=== PATIENT | male | born 1960 | race African-American/Black ===

== ENCOUNTER 2016-04-18 10:48 | Inpatient (IN) | payer OTHER ==
[2016-04-18 11:17] VITALS: BMI 21.8
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
[2016-04-18] MEDS ORDERED: IBUPROFEN 400 MG TABLET (FP) PO PRN (14:36)
[2016-04-18] MEDS ORDERED: P-EPHED 60MG/TRIPROLIDI 2.5MG TABLET PO PRN (14:36)
[2016-04-18] MEDS ORDERED: chlordiazePOXIDE HCL 25 MG CAPSULE PO PRN (14:36)
[2016-04-18] MEDS ORDERED: MAG HYDROX/AL HYDROX/SIMETH 30 ML UNIT-DOSE CUP PO PRN (14:36)
[2016-04-18] MEDS ORDERED: MAGNESIUM CITRATE 300 ML BOTTLE PO PRN (14:36)
[2016-04-18] MEDS ORDERED: diphenhydrAMINE HCL 50 MG CAPSULE PO PRN (14:36)
[2016-04-18] MEDS ORDERED: NICOTINE POLACRILEX 4 MG GUM BUC PRN (14:36)
[2016-04-18] MEDS ORDERED: LOPERAMIDE HCL 2 MG CAPSULE PO PRN (14:36)
[2016-04-18] MEDS ORDERED: MENTHOL/PHENOL 1 EACH UD MM PRN (14:36)
[2016-04-18] MEDS ORDERED: guaiFENesin/D-METHORPHAN HB 10 ML UNIT-DOSE CUPS PO PRN (14:36)
[2016-04-18] MEDS ORDERED: ACETAMINOPHEN 325 MG TABLET (FP) PO PRN (14:36)
[2016-04-18] MEDS ORDERED: hydrOXYzine PAMOATE 50 MG CAPSULE (FP) PO PRN (14:36)
[2016-04-18] MEDS ORDERED: MAGNESIUM HYDROX 2400MG/30ML ORAL SUSPENSION 30 ML CUP PO PRN (14:36)
[2016-04-18] MEDS ORDERED: chlordiazePOXIDE HCL 25 MG CAPSULE PO ONE (15:38)
[2016-04-18 17:35] LABS: URINE APPEARANCE CLEAR; URINE BILIRUBIN NEGATIVE (NEGATIVE); URINE BLOOD NEGATIVE (NEGATIVE); URINE COLOR LTYELLOW; URINE GLUCOSE (UA) NEGATIVE (NEGATIVE); URINE KETONE NEGATIVE (NEGATIVE); URINE LEUK ESTERASE NEGATIVE (NEGATIVE); URINE NITRITE NEGATIVE (NEGATIVE); URINE PROTEIN NEGATIVE (NEGATIVE); URINE UROBILINOGEN NEGATIVE E.U./dl (0.2-1.0)
[2016-04-18] MEDS: chlordiazePOXIDE HCL 25 MG CAPSULE PO SCH ×2 (18:49→22:29)
[2016-04-18] MEDS: TAMSULOSIN HCL 0.4 MG CAP.ER.24H (FP) PO SCH (22:30)
[2016-04-18] MEDS: THIAMINE HCL 100 MG TABLET (FP) PO SCH (22:31)
[2016-04-19] MEDS: chlordiazePOXIDE HCL 25 MG CAPSULE PO SCH ×4 (06:15→22:36)
[2016-04-19] MEDS ORDERED: TAMSULOSIN HCL 0.4 MG CAP.ER.24H (FP) PO SCH (10:00)
[2016-04-19] MEDS: PRENATAL VITAMINS W/ FOLIC ACID TABLET (FP) PO SCH (10:15)
[2016-04-19] MEDS: NICOTINE 21 MG/24 HOURS TOPICAL PATCH TD SCH (10:15)
[2016-04-19 10:17] LABS: MCH 31.6 pg (25.7-33.7); MCHC 33.5 g/dl (32.0-35.9); MEAN CELL VOLUME 94.4 fl (80-96); MEAN PLT VOLUME 8.5 fl (7.5-11.1); PLATELET COUNT 305 K/MM3 (134-434); RDW 13.4 % (11.9-15.9); WHITE BLOOD COUNT 4.5 K/mm3 (4.0-10.0)
[2016-04-19 10:45] LABS: ALBUMIN 3.9 g/dl (3.4-5.0); ALK PHOS 69 U/L (45-117); ANION GAP 9 (8-16); BILIRUBIN,TOTAL 0.5 mg/dL (0.2-1.0); CALCIUM 9.5 mg/dL (8.5-10.1); CO2 27 mmol/L (21-32); CREATININE 1.1 mg/dL (0.7-1.3); GLUCOSE,RANDOM 111 mg/dL (74-106); SGOT/AST 25 U/L (15-37); SGPT/ALT 34 U/L (12-78); TOT PROT 7.3 g/dl (6.4-8.2)
--- NOTE | 2016-04-19 11:32 | PN ---
S CIWA - CIWA Score Nausea/Vomitin-No Nausea/No Vomiting Muscle Tremors: 4-Moderate,w/Arms Extend Anxiety: 4-Mod. Anxious/Guarded Agitation: 3 Paroxysmal Sweats: 3 Orientation: 0-Oriented Tacttile Disturbances: 0-None Auditory Disturbances: 0-None Visual Disturbances: 0-None Headache: 0-None Present CIWA-Ar Total Score: 14 BHS Progress Note (SOAP) Subjective: ANXIETY,TREMORS,SWEATING,INTERRUPTED SLEEP,RESTLESS. Objective: 04/19/16 11:31 Vital Signs - 8 hr 04/19/16 06:27 Temperature 98.4 F Pulse Rate 101 H Respiratory 18 Rate Blood Pressure 114/81 Laboratory Tests 04/18/16 04/19/16 04/19/16 16:45 06:00 06:00 WBC 4.5 D RBC 3.90 L Hgb 12.3 Hct 36.8 MCV 94.4 MCHC 33.5 RDW 13.4 Plt Count 305 D MPV 8.5 Sodium 135 L Potassium 4.0 Chloride 99 Carbon Dioxide 27 Anion Gap 9 BUN 16 D Creatinine 1.1 Creat Clearance w eGFR > 60 Random Glucose 111 H Calcium 9.5 Total Bilirubin 0.5 AST 25 ALT 34 D Alkaline Phosphatase 69 Total Protein 7.3 Albumin 3.9 Urine Color Ltyellow Urine Appearance Clear Urine pH 6.0 Ur Specific [place] 1.008 Urine Protein Negative Urine Glucose (UA) Negative Urine Ketones Negative Urine Blood Negative Urine Nitrite Negative Urine Bilirubin Negative Urine Urobilinogen Negative Ur Leukocyte Esterase Negative LABS NOTED Assessment: 04/19/16 11:31 WITHDRAWAL SX. Plan: CONTINUE DETOX
--- NOTE | 2016-04-19 15:34 | CONSULT ---
[facility] Psychiatric Consult - Data Date of interview: 04/19/16 Admission source: [facility] Identifying data: This is 55 years old male with [id number] hospitalization history, history of Bipolar disorder intoxicated with: Alcohol, Cocaine and Nicotine Substance Abuse History: Smoking history: Current every day smoker. Have you smoked in the past 12 months: Yes. Aproximately how many cigarettes per day: 20. Hx Chewing Tobacco Use: No. Initiated information on smoking cessation: Yes. 'Breaking Loose' booklet given: 04/18/16. - Substance & Tx. History. Hx Alcohol Use: Yes. Hx Substance Use: Yes. Substance Use Type: Alcohol, Cocaine. Hx Substance Use Treatment: Yes. - Substances Abused. Alcohol. Route: Oral. Frequency: Daily. Amount used: beers- 2- 6pk daily vodka- 1pt. Age of first use: 16. Date of Last Use: 04/18/16. Cocaine. Route: Smoking. Frequency: Daily. Amount used: $200. Age of first use: 33. Date of Last Use: 04/18/16 Medical History: LBP, BPH, Eczema Psychiatric History: Patient reports Bipolar Disorder hiatory, reports no medicatopns taking prior to admission, reports most recent psychiatric admission at [facility] for [facility] on 2014. Regusing pharmacological intervention Physical/Sexual Abuse/Trauma History: Denies Additional Comment: Detox Unit Care Management Mental Status Exam - Mental Status Exam Alert and Oriented to: Person Cognitive Function: Fair Patient Appearance: Unkempt Mood: Sad Affect: Flat Patient Behavior: Sedated Speech Pattern: Delayed Voice Loudness: Mildly Soft/Quiet Thought Process: Circumstantial Thought Disorder: Being Controlled Hallucinations: Denies Suicidal Ideation: Denies Homicidal Ideation: Denies Insight/Judgement: Fair Sleep: Difficulty falling asleep Appetite: Fair Muscle strength/Tone: Mild Hypotonicity Gait/Station: Shuffling Additional Comments: Detox Unit Care Management Psychiatric Findings - Problem List ([place] 1, 2,3) (1) Alcohol dependence with uncomplicated withdrawal Current Visit: Yes Status: Chronic (2) Cocaine dependence Current Visit: Yes Status: Chronic Qualifiers: Substance use status: uncomplicated Qualified Code(s): F14.20 - Cocaine dependence, uncomplicated (3) Nicotine dependence Current Visit: Yes Status: Chronic Qualifiers: Nicotine product type: cigarettes Substance use status: uncomplicated Qualified Code(s): F17.210 - Nicotine dependence, cigarettes, uncomplicated (4) Alcohol dependence Current Visit: No Status: Acute Qualifiers: Substance use status: uncomplicated Qualified Code(s): F10.20 - Alcohol dependence, uncomplicated (5) Bipolar 1 disorder, depressed Current Visit: No Status: Chronic - Initial Treatment Plan Initial Treatment Plan: Detox Unit Care Management
[2016-04-19] MEDS: TAMSULOSIN HCL 0.4 MG CAP.ER.24H (FP) PO SCH (22:35)
[2016-04-19] MEDS: THIAMINE HCL 100 MG TABLET (FP) PO SCH (22:35)
[2016-04-20] MEDS: chlordiazePOXIDE HCL 25 MG CAPSULE PO SCH ×2 (05:50→10:12)
[2016-04-20] MEDS: NICOTINE 21 MG/24 HOURS TOPICAL PATCH TD SCH (10:12)
[2016-04-20] MEDS: PRENATAL VITAMINS W/ FOLIC ACID TABLET (FP) PO SCH (10:12)
--- NOTE | 2016-04-20 12:58 | PN ---
[facility] CIWA - CIWA Score Nausea/Vomitin-No Nausea/No Vomiting Muscle Tremors: 3 Anxiety: 3 Agitation: 3 Paroxysmal Sweats: 3 Orientation: 0-Oriented Tacttile Disturbances: 0-None Auditory Disturbances: 0-None Visual Disturbances: 0-None Headache: 0-None Present CIWA-Ar Total Score: 12 S Progress Note (SOAP) Subjective: SWEATING,INTERRUPTED SLEEP,RESTLESS,TREMORS,ANXIETY Objective: 04/20/16 12:58 Vital Signs - 8 hr 04/20/16 06:11 Temperature 97.2 F L Pulse Rate 109 H Respiratory 18 Rate Blood Pressure 109/81 Laboratory Tests 04/18/16 04/19/16 04/19/16 16:45 06:00 06:00 WBC 4.5 D RBC 3.90 L Hgb 12.3 Hct 36.8 MCV 94.4 MCHC 33.5 RDW 13.4 Plt Count 305 D MPV 8.5 Sodium 135 L Potassium 4.0 Chloride 99 Carbon Dioxide 27 Anion Gap 9 BUN 16 D Creatinine 1.1 Creat Clearance w eGFR > 60 Random Glucose 111 H Calcium 9.5 Total Bilirubin 0.5 AST 25 ALT 34 D Alkaline Phosphatase 69 Total Protein 7.3 Albumin 3.9 Urine Color Ltyellow Urine Appearance Clear Urine pH 6.0 Ur Specific [place] 1.008 Urine Protein Negative Urine Glucose (UA) Negative Urine Ketones Negative Urine Blood Negative Urine Nitrite Negative Urine Bilirubin Negative Urine Urobilinogen Negative Ur Leukocyte Esterase Negative RPR Titer 04/19/16 06:00 WBC RBC Hgb Hct MCV MCHC RDW Plt Count MPV Sodium Potassium Chloride Carbon Dioxide Anion Gap BUN Creatinine Creat Clearance w eGFR Random Glucose Calcium Total Bilirubin AST ALT Alkaline Phosphatase Total Protein Albumin Urine Color Urine Appearance Urine pH Ur Specific [place] Urine Protein Urine Glucose (UA) Urine Ketones Urine Blood Urine Nitrite Urine Bilirubin Urine Urobilinogen Ur Leukocyte Esterase RPR Titer Nonreactive LABS NOTED Assessment: 04/20/16 12:59 WITHDRAWAL SX. Plan: CONTINUE DETOX
[2016-04-20] MEDS: chlordiazePOXIDE 5 MG CAPSULE PO SCH ×2 (17:20→22:32)
[2016-04-20] MEDS: TAMSULOSIN HCL 0.4 MG CAP.ER.24H (FP) PO SCH (22:32)
[2016-04-20] MEDS: THIAMINE HCL 100 MG TABLET (FP) PO SCH (22:32)
[2016-04-21] MEDS: chlordiazePOXIDE 5 MG CAPSULE PO SCH ×2 (05:49→10:27)
[2016-04-21] MEDS: PRENATAL VITAMINS W/ FOLIC ACID TABLET (FP) PO SCH (10:27)
[2016-04-21] MEDS: NICOTINE 21 MG/24 HOURS TOPICAL PATCH TD SCH (10:27)
[2016-04-21 10:49] VITALS: BP 100/74; PULSE 118; TEMP 97.9
--- NOTE | 2016-04-21 11:19 | DS ---
[facility] Detox Discharge Summary Admission Date: 04/18/16 Discharge Date: 04/21/16 - History Present History: Alcohol Dependence, Cocaine Dependence Pertinent Past History: BPH - Physical Exam Results Vital Signs: Vital Signs Temperature 97.9 F 04/21/16 10:47 Pulse Rate 118 H 04/21/16 10:47 Respiratory Rate 20 04/21/16 10:47 Blood Pressure 100/74 04/21/16 10:47 O2 Sat by Pulse Oximetry (%) Pertinent Admission Physical Exam Findings: withdrawal symptoms Vital Signs Laboratory Last Values WBC 4.5 K/mm3 (4.0-10.0) D 04/19/16 06:00 RBC 3.90 M/mm3 (4.00-5.60) L 04/19/16 06:00 Hgb 12.3 GM/dL (11.7-16.9) 04/19/16 06:00 Hct 36.8 % (35.4-49) 04/19/16 06:00 MCV 94.4 fl (80-96) 04/19/16 06:00 MCHC 33.5 g/dl (32.0-35.9) 04/19/16 06:00 RDW 13.4 % (11.9-15.9) 04/19/16 06:00 Plt Count 305 K/MM3 (134-434) D 04/19/16 06:00 MPV 8.5 fl (7.5-11.1) 04/19/16 06:00 Sodium 135 mmol/L (136-145) L 04/19/16 06:00 Potassium 4.0 mmol/L (3.5-5.1) 04/19/16 06:00 Chloride 99 mmol/L (98-107) 04/19/16 06:00 Carbon Dioxide 27 mmol/L (21-32) 04/19/16 06:00 Anion Gap 9 (8-16) 04/19/16 06:00 BUN 16 mg/dL (7-18) D 04/19/16 06:00 Creatinine 1.1 mg/dL (0.7-1.3) 04/19/16 06:00 Creat Clearance w eGFR > 60 (>60) 04/19/16 06:00 Random Glucose 111 mg/dL (74-106) H 04/19/16 06:00 Calcium 9.5 mg/dL (8.5-10.1) 04/19/16 06:00 Total Bilirubin 0.5 mg/dL (0.2-1.0) 04/19/16 06:00 AST 25 U/L (15-37) 04/19/16 06:00 ALT 34 U/L (12-78) D 04/19/16 06:00 Alkaline Phosphatase 69 U/L (45-117) 04/19/16 06:00 Total Protein 7.3 g/dl (6.4-8.2) 04/19/16 06:00 Albumin 3.9 g/dl (3.4-5.0) 04/19/16 06:00 Urine Color Ltyellow 04/18/16 16:45 Urine Appearance Clear 04/18/16 16:45 Urine pH 6.0 (5.0-8.0) 04/18/16 16:45 Ur Specific [place] 1.008 (1.001-1.035) 04/18/16 16:45 Urine Protein Negative (NEGATIVE) 04/18/16 16:45 Urine Glucose (UA) Negative (NEGATIVE) 04/18/16 16:45 Urine Ketones Negative (NEGATIVE) 04/18/16 16:45 Urine Blood Negative (NEGATIVE) 04/18/16 16:45 Urine Nitrite Negative (NEGATIVE) 04/18/16 16:45 Urine Bilirubin Negative (NEGATIVE) 04/18/16 16:45 Urine Urobilinogen Negative E.U./dl (0.2-1.0) 04/18/16 16:45 Ur Leukocyte Esterase Negative (NEGATIVE) 04/18/16 16:45 RPR Titer Nonreactive (NONREACTIVE) 04/19/16 06:00 labs noted - Medication Discharge Medications: Ambulatory Orders Tamsulosin HCl [Flomax] 0.4 mg PO DAILY 04/18/16 - Diagnosis (1) Alcohol dependence with uncomplicated withdrawal Status: Chronic (2) Cocaine dependence Status: Chronic Qualifiers: Substance use status: uncomplicated Qualified Code(s): F14.20 - Cocaine dependence, uncomplicated (3) Nicotine dependence Status: Chronic Qualifiers: Nicotine product type: cigarettes Substance use status: uncomplicated Qualified Code(s): F17.210 - Nicotine dependence, cigarettes, uncomplicated (4) Benign prostate hyperplasia Status: Chronic Qualifiers: Prostatic enlargement morphology: non-nodular Lower urinary tract symptom presence: symptoms present Qualified Code(s): N40.1 - Enlarged prostate with lower urinary tract symptoms (5) Bipolar 1 disorder, depressed Status: Chronic - AMA Did Patient Leave Against Medical Advice: Yes
--- NOTE | 2016-04-21 12:26 | PN ---
[facility] Progress Note Note: Psychiatry Attending's note: Follow up consult requested by medical attending,Dr Bardales. Case presented by referring attending.Chart reviewed.Previously seen by Dr Groves. Patient not available for interview.Physician Office Clin Asst is informed that the patient had requested his discharge. Mr Phan,as per records,left the program against medical advice.Patient waived psychiatric examination.
[2016-04-21] MEDS ORDERED: chlordiazePOXIDE HCL 10 MG CAPSULE PO SCH (17:00)
== END 2016-04-21 11:04 | disposition left against medical advice (07) | DRG 770 ==
LOC: YASAS 10:48 → Y3N 15:31
PROVIDERS: ADMIT Internal Medicine; ATTEND Internal Medicine
PROC: HZ2ZZZZ Detoxification Services for Substance Abuse Treatment (ICD-10-PCS; principal; 2016-04-18)
DX: F10.230 Alcohol dependence with withdrawal, uncomplicated (principal); F14.20 Cocaine dependence, uncomplicated; F17.210 Nicotine dependence, cigarettes, uncomplicated; F31.9 Bipolar disorder, unspecified; N40.1 Benign prostatic hyperplasia with lower urinary tract symptoms; M54.5 Low back pain; L30.9 Dermatitis, unspecified; R00.0 Tachycardia, unspecified
CPT/HCPCS: 36415; 80053; 81003; 85027; 86593; 93005; 93010

== ENCOUNTER 2017-06-10 10:31 | Inpatient (IN) | payer OTHER ==
[2017-06-10 11:49] VITALS: BMI 23.4
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
[2017-06-10] MEDS ORDERED: IBUPROFEN 400 MG TABLET (FP) PO PRN (13:00)
[2017-06-10] MEDS ORDERED: ACETAMINOPHEN 325 MG TABLET (FP) PO PRN (13:00)
[2017-06-10] MEDS ORDERED: guaiFENesin/D-METHORPHAN HB 10 ML UNIT-DOSE CUPS PO PRN (13:00)
[2017-06-10] MEDS ORDERED: LOPERAMIDE HCL 2 MG CAPSULE PO PRN (13:00)
[2017-06-10] MEDS ORDERED: MAGNESIUM HYDROX 2400MG/30ML ORAL SUSPENSION 30 ML CUP PO PRN (13:00)
[2017-06-10] MEDS ORDERED: NICOTINE 14 MG/24 HOURS TOPICAL PATCH TD SCH (13:00)
[2017-06-10] MEDS ORDERED: MAG HYDROX/AL HYDROX/SIMETH 30 ML UNIT-DOSE CUP PO PRN (13:00)
[2017-06-10] MEDS ORDERED: diazePAM 5 MG TABLET PO PRN (13:00)
[2017-06-10] MEDS ORDERED: hydrOXYzine PAMOATE 50 MG CAPSULE (FP) PO PRN (13:00)
[2017-06-10] MEDS ORDERED: MENTHOL/PHENOL 1 EACH UD MM PRN (13:00)
[2017-06-10] MEDS ORDERED: MAGNESIUM CITRATE 300 ML BOTTLE PO PRN (13:00)
[2017-06-10] MEDS ORDERED: P-EPHED 60MG/TRIPROLIDI 2.5MG TABLET PO PRN (13:00)
[2017-06-10] MEDS ORDERED: diazePAM 5 MG TABLET PO ONE (14:15)
[2017-06-10] MEDS: NICOTINE 14 MG/24 HOURS TOPICAL PATCH TD SCH (15:24)
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
[2017-06-10 18:39] LABS: URINE APPEARANCE TURBID; URINE BILIRUBIN NEGATIVE (NEGATIVE); URINE BLOOD NEGATIVE (NEGATIVE); URINE COLOR YELLOW; URINE GLUCOSE (UA) NEGATIVE (NEGATIVE); URINE KETONE NEGATIVE (NEGATIVE); URINE LEUK ESTERASE NEGATIVE (NEGATIVE); URINE NITRITE NEGATIVE (NEGATIVE); URINE PROTEIN NEGATIVE (NEGATIVE); URINE UROBILINOGEN 4.0 E.U/dl mg/dL (0.2-1.0)
[2017-06-10] MEDS: THIAMINE HCL 100 MG TABLET (FP) PO SCH (22:16)
[2017-06-10] MEDS: diazePAM 5 MG TABLET PO SCH (22:16)
[2017-06-11] MEDS: diazePAM 5 MG TABLET PO SCH ×3 (05:59→22:25)
[2017-06-11 09:46] LABS: HEMATOCRIT 38.9 % (35.4-49); HEMOGLOBIN 12.7 GM/dL (11.7-16.9); MCH 30.6 pg (25.7-33.7); MCHC 32.8 g/dl (32.0-35.9); MEAN CELL VOLUME 93.5 fl (80-96); PLATELET COUNT 412 K/MM3 (134-434); RBC 4.16 M/mm3 (4.00-5.60); WHITE BLOOD COUNT 2.9 K/mm3 (4.0-10.0)
[2017-06-11 09:55] LABS: CHLORIDE 103 mmol/L (98-107); POTASSIUM 3.6 mmol/L (3.5-5.1); SODIUM 139 mmol/L (136-145)
[2017-06-11] MEDS: PRENATAL VITAMINS W/ FOLIC ACID TABLET (FP) PO SCH (10:12)
[2017-06-11] MEDS: TAMSULOSIN HCL 0.4 MG CAP.ER.24H (FP) PO SCH (10:12)
[2017-06-11] MEDS: NICOTINE 14 MG/24 HOURS TOPICAL PATCH TD SCH (10:12)
[2017-06-11 10:21] LABS: ALBUMIN 3.7 g/dl (3.4-5.0); ALK PHOS 57 U/L (45-117); ANION GAP 9 (8-16); BILIRUBIN,TOTAL 0.8 mg/dL (0.2-1.0); BLOOD UREA NITROGEN 13 mg/dL (7-18); CO2 27 mmol/L (21-32); GLUCOSE,RANDOM 106 mg/dL (74-106); SGOT/AST 9 U/L (15-37); SGPT/ALT 16 U/L (12-78); TOT PROT 7.4 g/dl (6.4-8.2)
--- NOTE | 2017-06-11 10:55 | PN ---
S CIWA - CIWA Score Nausea/Vomitin Muscle Tremors: 3 Anxiety: 3 Agitation: 2 Paroxysmal Sweats: 1-Minimal Palms Moist Orientation: 0-Oriented Tacttile Disturbances: 1-Very Mild Itch/Numbness Auditory Disturbances: 1-Very Mild Visual Disturbances: 0-None Headache: 2-Mild CIWA-Ar Total Score: 16 BHS Progress Note (SOAP) Subjective: ALERT,IRRITABLE,ANXIOUS,INTERRUPTED SLEEP,TREMOR Objective: 06/11/17 10:52 Vital Signs Temperature 98.1 F 06/11/17 10:00 Pulse Rate 106 H 06/11/17 10:00 Respiratory Rate 20 06/11/17 10:00 Blood Pressure 101/67 06/11/17 10:00 O2 Sat by Pulse Oximetry (%) EKG NSR,NONSPECIFIC T NO CHEST PAIN,NO SOB,NO DIZZINESS Laboratory Last Values WBC 2.9 K/mm3 (4.0-10.0) L D 06/11/17 05:45 RBC 4.16 M/mm3 (4.00-5.60) 06/11/17 05:45 Hgb 12.7 GM/dL (11.7-16.9) 06/11/17 05:45 Hct 38.9 % (35.4-49) 06/11/17 05:45 MCV 93.5 fl (80-96) 06/11/17 05:45 MCH 30.6 pg (25.7-33.7) 06/11/17 05:45 MCHC 32.8 g/dl (32.0-35.9) 06/11/17 05:45 RDW 13.0 % (11.9-15.9) 06/11/17 05:45 Plt Count 412 K/MM3 (134-434) D 06/11/17 05:45 MPV 8.0 fl (7.5-11.1) 06/11/17 05:45 Sodium 139 mmol/L (136-145) 06/11/17 05:45 Potassium 3.6 mmol/L (3.5-5.1) 06/11/17 05:45 Chloride 103 mmol/L (98-107) 06/11/17 05:45 Carbon Dioxide 27 mmol/L (21-32) 06/11/17 05:45 Anion Gap 9 (8-16) 06/11/17 05:45 BUN 13 mg/dL (7-18) 06/11/17 05:45 Creatinine 1.0 mg/dL (0.7-1.3) 06/11/17 05:45 Creat Clearance w eGFR > 60 (>60) 06/11/17 05:45 Random Glucose 106 mg/dL (74-106) 06/11/17 05:45 Calcium 9.0 mg/dL (8.5-10.1) 06/11/17 05:45 Total Bilirubin 0.8 mg/dL (0.2-1.0) D 06/11/17 05:45 AST 9 U/L (15-37) L D 06/11/17 05:45 ALT 16 U/L (12-78) D 06/11/17 05:45 Alkaline Phosphatase 57 U/L (45-117) 06/11/17 05:45 Total Protein 7.4 g/dl (6.4-8.2) 06/11/17 05:45 Albumin 3.7 g/dl (3.4-5.0) 06/11/17 05:45 Urine Color Yellow 06/10/17 18:00 Urine Appearance Turbid 06/10/17 18:00 Urine pH 5.0 (5.0-8.0) 06/10/17 18:00 Ur Specific [place] 1.032 (1.001-1.035) 06/10/17 18:00 Urine Protein Negative (NEGATIVE) 06/10/17 18:00 Urine Glucose (UA) Negative (NEGATIVE) 06/10/17 18:00 Urine Ketones Negative (NEGATIVE) 06/10/17 18:00 Urine Blood Negative (NEGATIVE) 06/10/17 18:00 Urine Nitrite Negative (NEGATIVE) 06/10/17 18:00 Urine Bilirubin Negative (NEGATIVE) 06/10/17 18:00 Urine Urobilinogen 4.0 e.u/dl mg/dL (0.2-1.0) 06/10/17 18:00 Ur Leukocyte Esterase Negative (NEGATIVE) 06/10/17 18:00 Assessment: 06/11/17 10:54 WITHDRAWAL SYMPTOM Plan: CONTINUE DETOX
--- NOTE | 2017-06-11 13:35 | EKG ---
Test Reason : Blood Pressure : / mmHG Vent. Rate : 085 BPM Atrial Rate : 085 BPM P-R Int : 166 ms QRS Dur : 078 ms QT Int : 360 ms P-R-T Axes : 070 014 -03 degrees QTc Int : 428 ms NORMAL SINUS RHYTHM NONSPECIFIC T WAVE ABNORMALITY ABNORMAL ECG NO PREVIOUS ECGS AVAILABLE Confirmed by MD Sarthak, Carlyle ([id number]) on 06/11/2017 1:35:09 PM Referred By: Confirmed By:Carlyle De León MD
[2017-06-11] MEDS: THIAMINE HCL 100 MG TABLET (FP) PO SCH (22:25)
[2017-06-12] MEDS ORDERED: diazePAM 5 MG TABLET PO SCH (10:00)
[2017-06-12] MEDS: PRENATAL VITAMINS W/ FOLIC ACID TABLET (FP) PO SCH (10:30)
[2017-06-12] MEDS: TAMSULOSIN HCL 0.4 MG CAP.ER.24H (FP) PO SCH (10:30)
[2017-06-12] MEDS: NICOTINE 14 MG/24 HOURS TOPICAL PATCH TD SCH (10:31)
--- NOTE | 2017-06-12 11:41 | PN ---
BHS Progress Note (SOAP) Subjective: ALERT,INTERRUPTED SLEEP Objective: 06/12/17 11:39 Vital Signs Temperature 98.1 F 06/12/17 09:55 Pulse Rate 106 H 06/12/17 09:55 Respiratory Rate 20 06/12/17 09:55 Blood Pressure 113/78 06/12/17 09:55 O2 Sat by Pulse Oximetry (%) Assessment: 06/12/17 11:40 LESS WITHDRAWAL SYMPTOM Plan: DISCHARGE IN AM AT 07.00
[2017-06-12 21:51] VITALS: BP 107/75; PULSE 109; TEMP 98.8
--- NOTE | 2017-06-12 21:53 | DS ---
[facility] Detox Discharge Summary Admission Date: 06/10/17 Discharge Date: 06/12/17 - History Present History: Alcohol Dependence, Cocaine Dependence Pertinent Past History: Bipolar d/o - Physical Exam Results Vital Signs: Vital Signs Temperature 98 F 06/12/17 18:57 Pulse Rate 100 H 06/12/17 18:57 Respiratory Rate 19 06/12/17 18:57 Blood Pressure 104/69 06/12/17 18:57 O2 Sat by Pulse Oximetry (%) Pertinent Admission Physical Exam Findings: Vital Signs Temperature 98.8 F 06/12/17 21:51 Pulse Rate 109 H 06/12/17 21:51 Respiratory Rate 20 06/12/17 21:51 Blood Pressure 107/75 06/12/17 21:51 O2 Sat by Pulse Oximetry (%) Laboratory Last Values WBC 2.9 K/mm3 (4.0-10.0) L D 06/11/17 05:45 RBC 4.16 M/mm3 (4.00-5.60) 06/11/17 05:45 Hgb 12.7 GM/dL (11.7-16.9) 06/11/17 05:45 Hct 38.9 % (35.4-49) 06/11/17 05:45 MCV 93.5 fl (80-96) 06/11/17 05:45 MCH 30.6 pg (25.7-33.7) 06/11/17 05:45 MCHC 32.8 g/dl (32.0-35.9) 06/11/17 05:45 RDW 13.0 % (11.9-15.9) 06/11/17 05:45 Plt Count 412 K/MM3 (134-434) D 06/11/17 05:45 MPV 8.0 fl (7.5-11.1) 06/11/17 05:45 Sodium 139 mmol/L (136-145) 06/11/17 05:45 Potassium 3.6 mmol/L (3.5-5.1) 06/11/17 05:45 Chloride 103 mmol/L (98-107) 06/11/17 05:45 Carbon Dioxide 27 mmol/L (21-32) 06/11/17 05:45 Anion Gap 9 (8-16) 06/11/17 05:45 BUN 13 mg/dL (7-18) 06/11/17 05:45 Creatinine 1.0 mg/dL (0.7-1.3) 06/11/17 05:45 Creat Clearance w eGFR > 60 (>60) 06/11/17 05:45 Random Glucose 106 mg/dL (74-106) 06/11/17 05:45 Calcium 9.0 mg/dL (8.5-10.1) 06/11/17 05:45 Total Bilirubin 0.8 mg/dL (0.2-1.0) D 06/11/17 05:45 AST 9 U/L (15-37) L D 06/11/17 05:45 ALT 16 U/L (12-78) D 06/11/17 05:45 Alkaline Phosphatase 57 U/L (45-117) 06/11/17 05:45 Total Protein 7.4 g/dl (6.4-8.2) 06/11/17 05:45 Albumin 3.7 g/dl (3.4-5.0) 06/11/17 05:45 Urine Color Yellow 06/10/17 18:00 Urine Appearance Turbid 06/10/17 18:00 Urine pH 5.0 (5.0-8.0) 06/10/17 18:00 Ur Specific [place] 1.032 (1.001-1.035) 06/10/17 18:00 Urine Protein Negative (NEGATIVE) 06/10/17 18:00 Urine Glucose (UA) Negative (NEGATIVE) 06/10/17 18:00 Urine Ketones Negative (NEGATIVE) 06/10/17 18:00 Urine Blood Negative (NEGATIVE) 06/10/17 18:00 Urine Nitrite Negative (NEGATIVE) 06/10/17 18:00 Urine Bilirubin Negative (NEGATIVE) 06/10/17 18:00 Urine Urobilinogen 4.0 e.u/dl mg/dL (0.2-1.0) 06/10/17 18:00 Ur Leukocyte Esterase Negative (NEGATIVE) 06/10/17 18:00 RPR Titer Nonreactive (NONREACTIVE) 06/11/17 05:45 - Medication Discharge Medications: Ambulatory Orders Tamsulosin HCl [Flomax -] 0.4 mg PO DAILY #30 cap.er.24h 06/12/17 hydrOXYzine PAMOATE [Vistaril -] 50 mg PO HS #30 capsule 06/12/17 - Diagnosis (1) Alcohol dependence with uncomplicated withdrawal Current Visit: Yes Status: Acute (2) Cocaine dependence Current Visit: Yes Status: Chronic Qualifiers: Substance use status: uncomplicated Qualified Code(s): F14.20 - Cocaine dependence, uncomplicated (3) Nicotine dependence Current Visit: Yes Status: Acute Qualifiers: Nicotine product type: cigarettes Substance use status: uncomplicated Qualified Code(s): F17.210 - Nicotine dependence, cigarettes, uncomplicated (4) Benign prostate hyperplasia Current Visit: Yes Status: Chronic Qualifiers: Lower urinary tract symptom presence: symptoms present (5) Bipolar disorder Current Visit: Yes Status: Chronic - AMA Did Patient Leave Against Medical Advice: Yes (Advised on benefits and risks )
[2017-06-14] MEDS ORDERED: diazePAM 5 MG TABLET PO SCH (10:00)
== END 2017-06-12 22:10 | disposition left against medical advice (07) | DRG 770 ==
LOC: YASAS 10:31 → Y6N 13:14
PROVIDERS: ADMIT Internal Medicine; ATTEND Internal Medicine
PROC: HZ2ZZZZ Detoxification Services for Substance Abuse Treatment (ICD-10-PCS; principal; 2017-06-08)
DX: F10.230 Alcohol dependence with withdrawal, uncomplicated (principal); F14.20 Cocaine dependence, uncomplicated; F17.210 Nicotine dependence, cigarettes, uncomplicated; F31.9 Bipolar disorder, unspecified; N40.0 Benign prostatic hyperplasia without lower urinary tract symptoms; G47.00 Insomnia, unspecified; R00.0 Tachycardia, unspecified
CPT/HCPCS: 36415; 80053; 81003; 85027; 86593; 93005; 93010

== ENCOUNTER 2017-09-14 08:28 | Inpatient (IN) | payer OTHER ==
[2017-09-14 09:34] VITALS: BMI 21.7
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
[2017-09-14] MEDS ORDERED: MAGNESIUM CITRATE 300 ML BOTTLE PO PRN (10:34)
[2017-09-14] MEDS ORDERED: MAG HYDROX/AL HYDROX/SIMETH 30 ML UNIT-DOSE CUP PO PRN (10:34)
[2017-09-14] MEDS ORDERED: LOPERAMIDE HCL 2 MG CAPSULE PO PRN (10:34)
[2017-09-14] MEDS ORDERED: ACETAMINOPHEN 325 MG TABLET (FP) PO PRN (10:34)
[2017-09-14] MEDS ORDERED: MENTHOL/PHENOL 1 EACH UD MM PRN (10:34)
[2017-09-14] MEDS ORDERED: hydrOXYzine PAMOATE 25 MG CAPSULE (FP) PO PRN (10:34)
[2017-09-14] MEDS ORDERED: guaiFENesin/D-METHORPHAN HB 10 ML UNIT-DOSE CUPS PO PRN (10:34)
[2017-09-14] MEDS ORDERED: IBUPROFEN 400 MG TABLET (FP) PO PRN (10:34)
[2017-09-14] MEDS ORDERED: P-EPHED 60MG/TRIPROLIDI 2.5MG TABLET PO PRN (10:34)
[2017-09-14] MEDS ORDERED: MAGNESIUM HYDROX 2400MG/30ML ORAL SUSPENSION 30 ML CUP PO PRN (10:34)
[2017-09-14] MEDS ORDERED: diazePAM 5 MG TABLET PO ONE (12:00)
[2017-09-14] MEDS: diazePAM 5 MG TABLET PO SCH ×2 (15:00→22:08)
[2017-09-14] MEDS: diazePAM 5 MG TABLET PO PRN (20:34)
[2017-09-14] MEDS ORDERED: MELATONIN 5 MG TABLETS PO PRN (22:00)
[2017-09-14] MEDS: THIAMINE HCL 100 MG TABLET (FP) PO SCH (22:08)
[2017-09-15] MEDS: diazePAM 5 MG TABLET PO SCH ×3 (05:48→22:37)
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
[2017-09-15] MEDS ORDERED: ZOLPIDEM TARTRATE 5 MG TABLET PO PRN (09:13)
[2017-09-15] MEDS: PRENATAL VITAMINS W/ FOLIC ACID TABLET (FP) PO SCH (09:25)
[2017-09-15] MEDS: TAMSULOSIN HCL 0.4 MG CAP.ER.24H (FP) PO SCH (09:25)
[2017-09-15] MEDS: diazePAM 5 MG TABLET PO PRN ×2 (10:17→21:22)
[2017-09-15 11:05] LABS: HEMATOCRIT 38.9 % (35.4-49); HEMOGLOBIN 12.7 GM/dL (11.7-16.9); MCH 30.9 pg (25.7-33.7); MCHC 32.7 g/dl (32.0-35.9); MEAN CELL VOLUME 94.6 fl (80-96); MEAN PLT VOLUME 8.1 fl (7.5-11.1); PLATELET COUNT 301 K/MM3 (134-434); RBC 4.12 M/mm3 (4.00-5.60); RDW 13.4 % (11.9-15.9); WHITE BLOOD COUNT 3.2 K/mm3 (4.0-10.0)
[2017-09-15 11:06] LABS: CHLORIDE 105 mmol/L (98-107); POTASSIUM 4.3 mmol/L (3.5-5.1); SODIUM 139 mmol/L (136-145)
[2017-09-15 11:08] LABS: URINE APPEARANCE TURBID; URINE BILIRUBIN NEGATIVE (<2.0 mg/dL); URINE BLOOD NEGATIVE (NEGATIVE); URINE COLOR YELLOW; URINE GLUCOSE (UA) NEGATIVE (NEGATIVE); URINE KETONE NEGATIVE (NEGATIVE); URINE LEUK ESTERASE NEGATIVE (NEGATIVE); URINE NITRITE NEGATIVE (NEGATIVE); URINE PROTEIN NEGATIVE (NEGATIVE)
[2017-09-15 11:22] LABS: ALBUMIN 3.2 g/dl (3.4-5.0); ALK PHOS 62 U/L (45-117); ANION GAP 7 (8-16); BILIRUBIN,TOTAL 0.5 mg/dL (0.2-1.0); BLOOD UREA NITROGEN 9 mg/dL (7-18); CO2 27 mmol/L (21-32); GLUCOSE,RANDOM 118 mg/dL (74-106); SGOT/AST 17 U/L (15-37); SGPT/ALT 33 U/L (12-78); TOT PROT 6.4 g/dl (6.4-8.2)
--- NOTE | 2017-09-15 15:53 | PN ---
S CIWA - CIWA Score Nausea/Vomitin Muscle Tremors: 4-Moderate,w/Arms Extend Anxiety: 3 Agitation: 2 Paroxysmal Sweats: 3 Orientation: 2-Disoriented Date<2 days Tacttile Disturbances: 1-Very Mild Itch/Numbness Auditory Disturbances: 0-None Visual Disturbances: 0-None Headache: 0-None Present CIWA-Ar Total Score: 18 BHS Progress Note (SOAP) Subjective: Sweating, Fatigue, Nausea, Tremors. Objective: PATIENT A & O X 2 (UNCERTAIN ABOUT CURRENT DAY / DATE). PATIENT OBSERVED AMBULATING ON UNIT. NO ACUTE DISTRESS. 09/15/17 15:51 Vital Signs Temperature 97.7 F 09/15/17 13:14 Pulse Rate 102 H 09/15/17 13:14 Respiratory Rate 20 09/15/17 13:14 Blood Pressure 101/70 09/15/17 13:14 O2 Sat by Pulse Oximetry (%) Laboratory Tests 09/15/17 09/15/17 09/15/17 07:40 07:40 07:40 WBC 3.2 L RBC 4.12 Hgb 12.7 Hct 38.9 MCV 94.6 MCH 30.9 MCHC 32.7 RDW 13.4 Plt Count 301 D MPV 8.1 Sodium 139 Potassium 4.3 Chloride 105 Carbon Dioxide 27 Anion Gap 7 L BUN 9 D Creatinine 1.0 Creat Clearance w eGFR > 60 Random Glucose 118 H Calcium 8.0 L Total Bilirubin 0.5 D AST 17 D ALT 33 D Alkaline Phosphatase 62 Total Protein 6.4 Albumin 3.2 L Urine Color Urine Appearance Urine pH Ur Specific [place] Urine Protein Urine Glucose (UA) Urine Ketones Urine Blood Urine Nitrite Urine Bilirubin Urine Urobilinogen Ur Leukocyte Esterase RPR Titer Nonreactive 09/15/17 08:15 WBC RBC Hgb Hct MCV MCH MCHC RDW Plt Count MPV Sodium Potassium Chloride Carbon Dioxide Anion Gap BUN Creatinine Creat Clearance w eGFR Random Glucose Calcium Total Bilirubin AST ALT Alkaline Phosphatase Total Protein Albumin Urine Color Yellow Urine Appearance Turbid Urine pH 6.0 Ur Specific [place] 1.027 Urine Protein Negative Urine Glucose (UA) Negative Urine Ketones Negative Urine Blood Negative Urine Nitrite Negative Urine Bilirubin Negative Urine Urobilinogen 2.0 Ur Leukocyte Esterase Negative RPR Titer LABS NOTED. HIV AB RESULT PENDING. 09/15/17 15:53 Assessment: 09/15/17 15:52 WITHDRAWAL SYMPTOMS. Plan: CONTINUE DETOX. INCREASE DAILY PO FLUID INTAKE.
[2017-09-15] MEDS: THIAMINE HCL 100 MG TABLET (FP) PO SCH (22:33)
--- NOTE | 2017-09-15 22:44 | EKG ---
Test Reason : Blood Pressure : / mmHG Vent. Rate : 094 BPM Atrial Rate : 094 BPM P-R Int : 154 ms QRS Dur : 072 ms QT Int : 354 ms P-R-T Axes : 068 028 -26 degrees QTc Int : 442 ms NORMAL SINUS RHYTHM POSSIBLE LEFT ATRIAL ENLARGEMENT T WAVE ABNORMALITY, CONSIDER LATERAL ISCHEMIA ABNORMAL ECG WHEN COMPARED WITH ECG OF 10-JUN-2017 15:02, NO SIGNIFICANT CHANGE WAS FOUND Confirmed by ANTOINETTE BRASHER MD ([id number]) on 09/15/2017 10:43:42 PM Referred By: Confirmed By:ANTOINETTE BRASHER MD
[2017-09-16] MEDS ORDERED: diazePAM 5 MG TABLET PO SCH (10:00)
[2017-09-16 10:07] VITALS: BP 102/67; PULSE 83; TEMP 96.9
--- NOTE | 2017-09-16 10:56 | PN ---
BHS Progress Note (SOAP) Subjective: Sweats Sleep disturbance shakes Objective: 09/16/17 10:52 A & O x 3 Pt insisted on leaving without reason after rounds, did not give a reason other than "i have personal issues" Did not wait to speak with provider. Pt noted to have steady gait No acute distress noted Vital Signs Temperature 96.9 F L 09/16/17 10:00 Pulse Rate 83 09/16/17 10:00 Respiratory Rate 18 09/16/17 10:00 Blood Pressure 102/67 09/16/17 10:00 O2 Sat by Pulse Oximetry (%) Assessment: 09/16/17 10:55 withdrawal sx No acute distress Plan: Will be discharged AMA
--- NOTE | 2017-09-16 10:56 | DS ---
[facility] Detox Discharge Summary Admission Date: 09/14/17 Discharge Date: 09/16/17 - History Additional Comments: pt left unit abruptly stating to nurses he has "personal problems that you cannot help with and have to leave" Pertinent Past History: BPH Depression - Physical Exam Results Vital Signs: Vital Signs Temperature 96.9 F L 09/16/17 10:00 Pulse Rate 83 09/16/17 10:00 Respiratory Rate 18 09/16/17 10:00 Blood Pressure 102/67 09/16/17 10:00 O2 Sat by Pulse Oximetry (%) Pertinent Admission Physical Exam Findings: withdrawal sx - Medication Discharge Medications: Ambulatory Orders Tamsulosin HCl [Flomax -] 0.4 mg PO DAILY #30 cap.er.24h 06/12/17 - Diagnosis (1) Alcohol dependence with uncomplicated withdrawal Current Visit: Yes Status: Acute (2) Cocaine dependence Current Visit: Yes Status: Chronic Qualifiers: Substance use status: uncomplicated Qualified Code(s): F14.20 - Cocaine dependence, uncomplicated (3) Nicotine dependence Current Visit: Yes Status: Acute Qualifiers: Nicotine product type: cigarettes Substance use status: uncomplicated Qualified Code(s): F17.210 - Nicotine dependence, cigarettes, uncomplicated (4) Benign prostate hyperplasia Current Visit: Yes Status: Chronic Qualifiers: Lower urinary tract symptom presence: symptoms present (5) Mild alprazolam abuse Current Visit: Yes Status: Chronic - AMA Did Patient Leave Against Medical Advice: Yes
[2017-09-16] MEDS: TAMSULOSIN HCL 0.4 MG CAP.ER.24H (FP) PO SCH (11:43)
[2017-09-16] MEDS: PRENATAL VITAMINS W/ FOLIC ACID TABLET (FP) PO SCH (11:43)
[2017-09-18] MEDS ORDERED: diazePAM 5 MG TABLET PO SCH (10:00)
== END 2017-09-16 10:40 | disposition left against medical advice (07) | DRG 770 ==
LOC: YASAS 08:28 → Y3N 11:49
PROVIDERS: ADMIT Surgery; ATTEND Surgery
PROC: HZ2ZZZZ Detoxification Services for Substance Abuse Treatment (ICD-10-PCS; principal; 2017-09-14)
DX: F10.230 Alcohol dependence with withdrawal, uncomplicated (principal); F14.20 Cocaine dependence, uncomplicated; F13.10 Sedative, hypnotic or anxiolytic abuse, uncomplicated; F17.210 Nicotine dependence, cigarettes, uncomplicated; F31.9 Bipolar disorder, unspecified; F19.282 Other psychoactive substance dependence with psychoactive substance-induced sleep disorder; N40.0 Benign prostatic hyperplasia without lower urinary tract symptoms; M54.5 Low back pain; G89.29 Other chronic pain; M17.11 Unilateral primary osteoarthritis, right knee
CPT/HCPCS: 36415; 80053; 81003; 85027; 86593; 87389; 93005; 93010

== ENCOUNTER 2018-01-03 11:22 | Inpatient (IN) | payer OTHER ==
[2018-01-03 13:24] VITALS: BMI 22.6
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
[2018-01-03] MEDS ORDERED: MAGNESIUM HYDROX 2400MG/30ML ORAL SUSPENSION 30 ML CUP PO PRN (18:55)
[2018-01-03] MEDS ORDERED: NICOTINE POLACRILEX 2 MG GUM BC PRN (18:55)
[2018-01-03] MEDS ORDERED: MAGNESIUM CITRATE 300 ML BOTTLE PO PRN (18:55)
[2018-01-03] MEDS ORDERED: chlordiazePOXIDE HCL 25 MG CAPSULE PO PRN (18:55)
[2018-01-03] MEDS ORDERED: ACETAMINOPHEN 325 MG TABLET (FP) PO PRN (18:55)
[2018-01-03] MEDS ORDERED: guaiFENesin/D-METHORPHAN HB 10 ML UNIT-DOSE CUPS PO PRN (18:55)
[2018-01-03] MEDS ORDERED: MAG HYDROX/AL HYDROX/SIMETH 30 ML UNIT-DOSE CUP PO PRN (18:55)
[2018-01-03] MEDS ORDERED: P-EPHED 60MG/TRIPROLIDI 2.5MG TABLET PO PRN (18:55)
[2018-01-03] MEDS ORDERED: IBUPROFEN 400 MG TABLET (FP) PO PRN (18:55)
[2018-01-03] MEDS ORDERED: MENTHOL/PHENOL 1 EACH UD MM PRN (18:55)
[2018-01-03] MEDS ORDERED: hydrOXYzine PAMOATE 50 MG CAPSULE (FP) PO PRN (18:55)
[2018-01-03] MEDS ORDERED: LOPERAMIDE HCL 2 MG CAPSULE PO PRN (18:55)
[2018-01-03] MEDS ORDERED: chlordiazePOXIDE HCL 25 MG CAPSULE PO ONE (18:55)
[2018-01-03] MEDS: chlordiazePOXIDE HCL 25 MG CAPSULE PO SCH (22:37)
[2018-01-03] MEDS: THIAMINE HCL 100 MG TABLET (FP) PO SCH (22:37)
[2018-01-03] MEDS: MELATONIN 5 MG TABLETS PO PRN (22:38)
[2018-01-03] MEDS: TAMSULOSIN HCL 0.4 MG CAP.ER.24H (FP) PO SCH (22:46)
[2018-01-04] MEDS: chlordiazePOXIDE HCL 25 MG CAPSULE PO SCH ×4 (05:18→22:02)
[2018-01-04] MEDS: PRENATAL VITAMINS W/ FOLIC ACID TABLET (FP) PO SCH (10:17)
--- NOTE | 2018-01-04 10:18 | PN ---
S CIWA - CIWA Score Nausea/Vomitin-No Nausea/No Vomiting Muscle Tremors: 4-Moderate,w/Arms Extend Anxiety: 5 Agitation: 4-Moderately Restless Paroxysmal Sweats: 1-Minimal Palms Moist Orientation: 0-Oriented Tacttile Disturbances: 0-None Auditory Disturbances: 0-None Visual Disturbances: 0-None Headache: 0-None Present CIWA-Ar Total Score: 14 [facility] Progress Note (SOAP) Subjective: C/O ANXIETY, TREMORS, IRRITABILITY, RESTLESSNESS. REPORTS CURRENT DOSE OF LIBRIUM NOT ENOUGH. Objective: 01/04/18 10:17 Vital Signs 01/04/18 01/04/18 01/04/18 03:30 05:58 06:30 Temperature 97 F L Pulse Rate 73 Respiratory 18 18 18 Rate Blood Pressure 103/67 01/04/18 09:12 Temperature 97.0 F L Pulse Rate 78 Respiratory 18 Rate Blood Pressure 99/66 LABS PENDING Assessment: 01/04/18 10:18 WITHDRAWAL SX Plan: CONTINUE DETOX EXTRA DOSE LIBRIUM 50 MG PO AT 14:00 TODAY
[2018-01-04] MEDS: NICOTINE 14 MG/24 HOURS TOPICAL PATCH TD SCH (10:19)
[2018-01-04 10:50] LABS: URINE APPEARANCE CLEAR; URINE BILIRUBIN NEGATIVE (<2.0 mg/dL); URINE COLOR STRAW; URINE GLUCOSE (UA) NEGATIVE (NEGATIVE); URINE KETONE NEGATIVE (NEGATIVE); URINE LEUK ESTERASE NEGATIVE (NEGATIVE); URINE NITRITE NEGATIVE (NEGATIVE); URINE PROTEIN NEGATIVE (NEGATIVE); URINE UROBILINOGEN NEGATIVE mg/dL (0.2-1.0)
[2018-01-04 10:57] LABS: HEMATOCRIT 37.2 % (35.4-49); HEMOGLOBIN 12.3 GM/dL (11.7-16.9); MCH 30.7 pg (25.7-33.7); MEAN CELL VOLUME 93.1 fl (80-96); MEAN PLT VOLUME 7.9 fl (7.5-11.1); PLATELET COUNT 254 K/MM3 (134-434); RDW 13.3 % (11.9-15.9); WHITE BLOOD COUNT 3.1 K/mm3 (4.0-10.0)
[2018-01-04 11:02] LABS: ALBUMIN 3.1 g/dl (3.4-5.0); ALK PHOS 60 U/L (45-117); ANION GAP 8 MMOL/L (8-16); BILIRUBIN,TOTAL 0.5 mg/dL (0.2-1); BLOOD UREA NITROGEN 12 mg/dL (7-18); CHLORIDE 105 mmol/L (98-107); CO2 29 mmol/L (21-32); CREATININE 0.9 mg/dL (0.55-1.3); GLUCOSE,RANDOM 85 mg/dL (74-106); POTASSIUM 4.2 mmol/L (3.5-5.1); SGOT/AST 16 U/L (15-37); SGPT/ALT 27 U/L (13-61); SODIUM 141 mmol/L (136-145); TOT PROT 6.3 g/dl (6.4-8.2)
--- NOTE | 2018-01-04 11:26 | CONSULT ---
[facility] Psychiatric Consult - Data Date of interview: 01/04/18 Admission source: [facility] Identifying data: Patient is approached at bedside for the psychiatric interview.Mr Espinoza declined. Nursing staff is made aware.
[2018-01-04] MEDS ORDERED: chlordiazePOXIDE HCL 25 MG CAPSULE PO ONE (14:00)
--- NOTE | 2018-01-04 15:41 | EKG ---
Test Reason : Blood Pressure : / mmHG Vent. Rate : 075 BPM Atrial Rate : 075 BPM P-R Int : 168 ms QRS Dur : 084 ms QT Int : 366 ms P-R-T Axes : 078 046 -26 degrees QTc Int : 408 ms POOR DATA QUALITY, INTERPRETATION MAY BE ADVERSELY AFFECTED NORMAL SINUS RHYTHM NONSPECIFIC ST AND T WAVE ABNORMALITY ABNORMAL ECG WHEN COMPARED WITH ECG OF 14-SEP-2017 12:34, NO SIGNIFICANT CHANGE WAS FOUND Confirmed by MD Sarthak, Carlyle ([id number]) on 01/04/2018 3:41:03 PM Referred By: Confirmed By:Carlyle De León MD
[2018-01-04] MEDS: TAMSULOSIN HCL 0.4 MG CAP.ER.24H (FP) PO SCH (22:02)
[2018-01-04] MEDS: MELATONIN 5 MG TABLETS PO PRN (22:03)
[2018-01-04] MEDS: THIAMINE HCL 100 MG TABLET (FP) PO SCH (22:04)
[2018-01-05] MEDS: chlordiazePOXIDE HCL 25 MG CAPSULE PO SCH ×3 (05:50→17:46)
[2018-01-05] MEDS: NICOTINE 14 MG/24 HOURS TOPICAL PATCH TD SCH (10:49)
[2018-01-05] MEDS: PRENATAL VITAMINS W/ FOLIC ACID TABLET (FP) PO SCH (10:49)
--- NOTE | 2018-01-05 14:07 | PN ---
[facility] CIWA - CIWA Score Nausea/Vomitin-Mild Nausea/No Vomiting Muscle Tremors: 4-Moderate,w/Arms Extend Anxiety: 3 Agitation: 3 Paroxysmal Sweats: 3 Orientation: 0-Oriented Tacttile Disturbances: 0-None Auditory Disturbances: 0-None Visual Disturbances: 0-None Headache: 1-Very Mild CIWA-Ar Total Score: 15 [facility] Progress Note (SOAP) Subjective: Tremor, chills, interrupted sleep; requesting vistaril 50mg PO qhs prn for sleep stating he takes this at home Objective: 01/05/18 14:06 Last Vital Signs Temp Pulse Resp BP Pulse Ox 97.8 F 62 16 99/75 01/05/18 13:32 01/05/18 13:32 01/05/18 13:32 01/05/18 13:32 Laboratory Tests 01/04/18 01/04/18 01/04/18 07:50 07:50 07:50 WBC 3.1 L RBC 4.00 Hgb 12.3 Hct 37.2 MCV 93.1 MCH 30.7 MCHC 33.0 RDW 13.3 Plt Count 254 MPV 7.9 Sodium 141 Potassium 4.2 Chloride 105 Carbon Dioxide 29 Anion Gap 8 BUN 12 Creatinine 0.9 Creat Clearance w eGFR > 60 Random Glucose 85 Calcium 9.0 Total Bilirubin 0.5 AST 16 ALT 27 Alkaline Phosphatase 60 Total Protein 6.3 L Albumin 3.1 L Urine Color Urine Appearance Urine pH Ur Specific [place] Urine Protein Urine Glucose (UA) Urine Ketones Urine Blood Urine Nitrite Urine Bilirubin Urine Urobilinogen Ur Leukocyte Esterase RPR Titer Nonreactive 01/04/18 08:50 WBC RBC Hgb Hct MCV MCH MCHC RDW Plt Count MPV Sodium Potassium Chloride Carbon Dioxide Anion Gap BUN Creatinine Creat Clearance w eGFR Random Glucose Calcium Total Bilirubin AST ALT Alkaline Phosphatase Total Protein Albumin Urine Color Straw Urine Appearance Clear Urine pH 8.0 D Ur Specific [place] 1.006 Urine Protein Negative Urine Glucose (UA) Negative Urine Ketones Negative Urine Blood Negative Urine Nitrite Negative Urine Bilirubin Negative Urine Urobilinogen Negative Ur Leukocyte Esterase Negative RPR Titer Labs reviewed Assessment: 01/05/18 14:06 Withdrawal symptoms Plan: Continue detox
[2018-01-05] MEDS ORDERED: hydrOXYzine PAMOATE 50 MG CAPSULE (FP) PO PRN (21:00)
[2018-01-05] MEDS: chlordiazePOXIDE 5 MG CAPSULE PO SCH (22:37)
[2018-01-05] MEDS: TAMSULOSIN HCL 0.4 MG CAP.ER.24H (FP) PO SCH (22:37)
[2018-01-05] MEDS: THIAMINE HCL 100 MG TABLET (FP) PO SCH (22:37)
[2018-01-06] MEDS: chlordiazePOXIDE 5 MG CAPSULE PO SCH ×3 (07:39→17:24)
[2018-01-06] MEDS: PRENATAL VITAMINS W/ FOLIC ACID TABLET (FP) PO SCH (10:51)
[2018-01-06] MEDS: NICOTINE 14 MG/24 HOURS TOPICAL PATCH TD SCH (10:51)
--- NOTE | 2018-01-06 15:23 | PN ---
[facility] Progress Note (SOAP) Subjective: sleepy shakes sweat Objective: 01/06/18 15:22 A & O x 3 Steady gait Assessment: 01/06/18 15:23 withdrawal sx Plan: continue detox
[2018-01-06 21:39] VITALS: BP 100/71; PULSE 85; TEMP 97.6
[2018-01-06] MEDS: TAMSULOSIN HCL 0.4 MG CAP.ER.24H (FP) PO SCH (22:03)
[2018-01-06] MEDS: THIAMINE HCL 100 MG TABLET (FP) PO SCH (22:04)
[2018-01-07] MEDS: chlordiazePOXIDE HCL 10 MG CAPSULE PO SCH ×3 (04:25→10:03)
[2018-01-07] MEDS: PRENATAL VITAMINS W/ FOLIC ACID TABLET (FP) PO SCH (10:03)
[2018-01-07] MEDS: NICOTINE 14 MG/24 HOURS TOPICAL PATCH TD SCH (10:03)
--- NOTE | 2018-01-07 11:40 | DS ---
[facility] Detox Discharge Summary Admission Date: 01/03/18 Discharge Date: 01/07/18 - History Present History: Alcohol Dependence, Sedative Dependence - Physical Exam Results Vital Signs: Vital Signs Temperature 97.6 F 01/06/18 21:37 Pulse Rate 85 01/06/18 21:37 Respiratory Rate 18 01/07/18 03:30 Blood Pressure 100/71 01/06/18 21:37 O2 Sat by Pulse Oximetry (%) Pertinent Admission Physical Exam Findings: PATIENT COMPLETED DETOX TODAY. DETOX REGIMEN WELL TOLERATED.PATIENT MEDICALLY STABLE. IN NO ACUTE DISTRESS. Vital Signs Temperature 97.6 F 01/06/18 21:37 Pulse Rate 85 01/06/18 21:37 Respiratory Rate 18 01/07/18 03:30 Blood Pressure 100/71 01/06/18 21:37 O2 Sat by Pulse Oximetry (%) - Medication Discharge Medications: Ambulatory Orders Tamsulosin HCl [Flomax -] 0.4 mg PO DAILY #30 cap.er.24h 06/12/17 - AMA Did Patient Leave Against Medical Advice: No
== END 2018-01-07 10:11 | disposition home or self-care (01) | DRG 774 ==
LOC: YASAS 11:22 → Y3N 20:10
PROC: HZ2ZZZZ Detoxification Services for Substance Abuse Treatment (ICD-10-PCS; principal; 2018-01-03)
DX: F10.230 Alcohol dependence with withdrawal, uncomplicated (principal); F14.20 Cocaine dependence, uncomplicated; F13.10 Sedative, hypnotic or anxiolytic abuse, uncomplicated; F12.10 Cannabis abuse, uncomplicated; F17.213 Nicotine dependence, cigarettes, with withdrawal; F31.9 Bipolar disorder, unspecified; G47.00 Insomnia, unspecified; M17.11 Unilateral primary osteoarthritis, right knee; N40.0 Benign prostatic hyperplasia without lower urinary tract symptoms; L30.9 Dermatitis, unspecified; R45.851 Suicidal ideations
CPT/HCPCS: 36415; 80053; 81003; 85027; 86593; 93005; 93010

== ENCOUNTER 2018-02-10 11:42 | Inpatient (IN) | payer OTHER ==
[2018-02-10 13:50] VITALS: BMI 21.7
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
[2018-02-10] MEDS ORDERED: guaiFENesin/D-METHORPHAN HB 10 ML UNIT-DOSE CUPS PO PRN (15:55)
[2018-02-10] MEDS ORDERED: LOPERAMIDE HCL 2 MG CAPSULE PO PRN (15:55)
[2018-02-10] MEDS ORDERED: ACETAMINOPHEN 325 MG TABLET (FP) PO PRN (15:55)
[2018-02-10] MEDS ORDERED: MAGNESIUM CITRATE 300 ML BOTTLE PO PRN (15:55)
[2018-02-10] MEDS ORDERED: MENTHOL/PHENOL 1 EACH UD MM PRN (15:55)
[2018-02-10] MEDS ORDERED: MAG HYDROX/AL HYDROX/SIMETH 30 ML UNIT-DOSE CUP PO PRN (15:55)
[2018-02-10] MEDS ORDERED: P-EPHED 60MG/TRIPROLIDI 2.5MG TABLET PO PRN (15:55)
[2018-02-10] MEDS ORDERED: IBUPROFEN 400 MG TABLET (FP) PO PRN (15:55)
[2018-02-10] MEDS ORDERED: MAGNESIUM HYDROX 2400MG/30ML ORAL SUSPENSION 30 ML CUP PO PRN (15:55)
[2018-02-10] MEDS ORDERED: NICOTINE POLACRILEX 2 MG GUM BC PRN (15:55)
[2018-02-10 20:33] LABS: URINE APPEARANCE TURBID; URINE BILIRUBIN NEGATIVE (<2.0 mg/dL); URINE COLOR YELLOW; URINE GLUCOSE (UA) NEGATIVE (NEGATIVE); URINE KETONE NEGATIVE (NEGATIVE); URINE LEUK ESTERASE NEGATIVE (NEGATIVE); URINE NITRITE NEGATIVE (NEGATIVE); URINE PROTEIN 1+ (NEGATIVE); URINE UROBILINOGEN 4.0 E.U/dl mg/dL (0.2-1.0)
[2018-02-10 20:47] LABS: URINE MUCUS MANY
[2018-02-10 20:51] LABS: AMORP URATES 4+ /hpf (NONE SEEN)
[2018-02-10] MEDS: hydrOXYzine PAMOATE 50 MG CAPSULE (FP) PO PRN (21:22)
[2018-02-10] MEDS: THIAMINE HCL 100 MG TABLET (FP) PO SCH (21:22)
[2018-02-10] MEDS ORDERED: MELATONIN 5 MG TABLETS PO PRN (22:00)
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
[2018-02-11 10:09] LABS: HEMATOCRIT 38.4 % (35.4-49); HEMOGLOBIN 12.3 GM/dL (11.7-16.9); MCH 30.4 pg (25.7-33.7); MCHC 31.9 g/dl (32.0-35.9); MEAN CELL VOLUME 95.4 fl (80-96); MEAN PLT VOLUME 8.1 fl (7.5-11.1); PLATELET COUNT 253 K/MM3 (134-434); RBC 4.03 M/mm3 (4.00-5.60); RDW 13.6 % (11.9-15.9); WHITE BLOOD COUNT 4.8 K/mm3 (4.0-10.0)
[2018-02-11] MEDS: TAMSULOSIN HCL 0.4 MG CAP PO SCH (10:11)
[2018-02-11] MEDS: PRENATAL VITAMINS W/ FOLIC ACID TABLET (FP) PO SCH (10:12)
[2018-02-11] MEDS: NICOTINE 14 MG/24 HOURS TOPICAL PATCH TD SCH (10:12)
[2018-02-11 10:35] LABS: ALBUMIN 2.9 g/dl (3.4-5.0); ALK PHOS 65 U/L (45-117); ANION GAP 10 MMOL/L (8-16); BILIRUBIN,TOTAL 0.6 mg/dL (0.2-1); BLOOD UREA NITROGEN 11 mg/dL (7-18); CALCIUM 8.2 mg/dL (8.5-10.1); CHLORIDE 108 mmol/L (98-107); CO2 26 mmol/L (21-32); GLUCOSE,RANDOM 129 mg/dL (74-106); POTASSIUM 4.2 mmol/L (3.5-5.1); SGOT/AST 27 U/L (15-37); SGPT/ALT 46 U/L (13-61); SODIUM 143 mmol/L (136-145)
[2018-02-11] MEDS: THIAMINE HCL 100 MG TABLET (FP) PO SCH (21:19)
[2018-02-11] MEDS: hydrOXYzine PAMOATE 50 MG CAPSULE (FP) PO PRN (21:21)
[2018-02-12 06:55] VITALS: BP 127/91; PULSE 84; TEMP 98.8
[2018-02-12] MEDS: TAMSULOSIN HCL 0.4 MG CAP PO SCH (10:20)
[2018-02-12] MEDS: NICOTINE 14 MG/24 HOURS TOPICAL PATCH TD SCH (10:20)
[2018-02-12] MEDS: PRENATAL VITAMINS W/ FOLIC ACID TABLET (FP) PO SCH (10:20)
== END 2018-02-12 09:00 | disposition left against medical advice (07) | DRG 770 ==
LOC: YASAS 11:42 → Y6N 14:44 → UNDOADMIN 14:44 → Y5N 17:50
PROVIDERS: ADMIT Psychiatry & Neurology Psychiatry; ATTEND Psychiatry & Neurology Psychiatry
PROC: HZ42ZZZ Group Counseling for Substance Abuse Treatment, Cognitive-Behavioral (ICD-10-PCS; principal; 2018-02-10)
DX: F10.20 Alcohol dependence, uncomplicated (principal); F13.20 Sedative, hypnotic or anxiolytic dependence, uncomplicated; F14.20 Cocaine dependence, uncomplicated; F17.213 Nicotine dependence, cigarettes, with withdrawal; F31.81 Bipolar II disorder; F19.24 Other psychoactive substance dependence with psychoactive substance-induced mood disorder; F19.282 Other psychoactive substance dependence with psychoactive substance-induced sleep disorder; N40.0 Benign prostatic hyperplasia without lower urinary tract symptoms; M13.861 Other specified arthritis, right knee
CPT/HCPCS: 36415; 80053; 81003; 81015; 85027; 86593

== ENCOUNTER 2018-03-20 08:29 | Inpatient (IN) | payer OTHER ==
[2018-03-20 08:44] VITALS: BMI 22.6
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
[2018-03-20] MEDS ORDERED: guaiFENesin/D-METHORPHAN HB 10 ML UNIT-DOSE CUPS PO PRN (09:22)
[2018-03-20] MEDS ORDERED: MENTHOL/PHENOL 1 EACH UD MM PRN (09:22)
[2018-03-20] MEDS ORDERED: MAGNESIUM CITRATE 300 ML BOTTLE PO PRN (09:22)
[2018-03-20] MEDS ORDERED: P-EPHED 60MG/TRIPROLIDI 2.5MG TABLET PO PRN (09:22)
[2018-03-20] MEDS ORDERED: MAGNESIUM HYDROX 2400MG/30ML ORAL SUSPENSION 30 ML CUP PO PRN (09:22)
[2018-03-20] MEDS ORDERED: hydrOXYzine PAMOATE 50 MG CAPSULE (FP) PO PRN (09:22)
[2018-03-20] MEDS ORDERED: LOPERAMIDE HCL 2 MG CAPSULE PO PRN (09:22)
[2018-03-20] MEDS ORDERED: MAG HYDROX/AL HYDROX/SIMETH 30 ML UNIT-DOSE CUP PO PRN (09:22)
[2018-03-20] MEDS ORDERED: IBUPROFEN 400 MG TABLET (FP) PO PRN (09:22)
[2018-03-20] MEDS: TAMSULOSIN HCL 0.4 MG CAP PO SCH (11:42)
[2018-03-20] MEDS: chlordiazePOXIDE HCL 25 MG CAPSULE PO SCH ×3 (11:42→22:39)
[2018-03-20] MEDS: PRENATAL VITAMINS W/ FOLIC ACID TABLET (FP) PO SCH (11:45)
[2018-03-20 17:35] LABS: URINE APPEARANCE CLEAR; URINE BILIRUBIN NEGATIVE (<2.0 mg/dL); URINE COLOR YELLOW; URINE GLUCOSE (UA) NEGATIVE (NEGATIVE); URINE KETONE NEGATIVE (NEGATIVE); URINE LEUK ESTERASE NEGATIVE (NEGATIVE); URINE NITRITE NEGATIVE (NEGATIVE); URINE PROTEIN NEGATIVE (NEGATIVE)
[2018-03-20] MEDS: ACETAMINOPHEN 325 MG TABLET (FP) PO PRN ×2 (17:36→22:42)
[2018-03-20] MEDS ORDERED: MELATONIN 5 MG TABLETS PO PRN (22:00)
[2018-03-20] MEDS: THIAMINE HCL 100 MG TABLET (FP) PO SCH (22:39)
[2018-03-21] MEDS: chlordiazePOXIDE HCL 25 MG CAPSULE PO SCH ×4 (06:20→22:50)
[2018-03-21 10:12] LABS: HEMATOCRIT 40.4 % (35.4-49); HEMOGLOBIN 13.8 GM/dL (11.7-16.9); MCH 32.4 pg (25.7-33.7); MCHC 34.3 g/dl (32.0-35.9); MEAN CELL VOLUME 94.5 fl (80-96); MEAN PLT VOLUME 8.5 fl (7.5-11.1); PLATELET COUNT 314 K/MM3 (134-434); RBC 4.27 M/mm3 (4.00-5.60); RDW 13.4 % (11.9-15.9); WHITE BLOOD COUNT 4.6 K/mm3 (4.0-10.0)
--- NOTE | 2018-03-21 11:21 | PN ---
[facility] CIWA - CIWA Score Nausea/Vomitin-Int. Nausea w/Dry Heave Muscle Tremors: 1-None Visible, but [place] Anxiety: 1-Mildly Anxious Agitation: 1-Slight > Activity Paroxysmal Sweats: 3 Orientation: 0-Oriented Tacttile Disturbances: 1-Very Mild Itch/Numbness Auditory Disturbances: 0-None Visual Disturbances: 0-None Headache: 0-None Present CIWA-Ar Total Score: 11 S Progress Note (SOAP) Subjective: interrupted sleep, sweats, shakes, dry heaves this am. Not eatting well. Objective: 03/21/18 11:19 Vital Signs Temperature 99.5 F 03/21/18 11:17 Pulse Rate 109 H 03/21/18 11:17 Respiratory Rate 19 03/21/18 11:17 Blood Pressure 102/61 03/21/18 11:17 O2 Sat by Pulse Oximetry (%) Laboratory Tests 03/20/18 03/21/18 13:57 06:00 WBC 4.6 RBC 4.27 Hgb 13.8 Hct 40.4 MCV 94.5 MCH 32.4 MCHC 34.3 RDW 13.4 Plt Count 314 D MPV 8.5 Urine Color Yellow Urine Appearance Clear Urine pH 6.0 Ur Specific Telephone 1.030 Urine Protein Negative Urine Glucose (UA) Negative Urine Ketones Negative Urine Blood Negative Urine Nitrite Negative Urine Bilirubin Negative Urine Urobilinogen 2.0 Ur Leukocyte Esterase Negative pt aox3 in nad lying in bed Assessment: 03/21/18 11:19 withdrawal sx's Plan: cont. detox increase fluids ensure 180ml po bid f/up pending labs
[2018-03-21 11:43] LABS: ALK PHOS 78 U/L (45-117); ANION GAP 9 MMOL/L (8-16); BILIRUBIN,TOTAL 0.7 mg/dL (0.2-1); BLOOD UREA NITROGEN 14 mg/dL (7-18); CALCIUM 8.8 mg/dL (8.5-10.1); CHLORIDE 101 mmol/L (98-107); CO2 27 mmol/L (21-32); GLUCOSE,RANDOM 78 mg/dL (74-106); SGOT/AST 33 U/L (15-37); SODIUM 137 mmol/L (136-145); TOT PROT 7.6 g/dl (6.4-8.2)
[2018-03-21 11:56] LABS: SGPT/ALT 59 U/L (13-61)
[2018-03-21] MEDS: TAMSULOSIN HCL 0.4 MG CAP PO SCH (13:45)
[2018-03-21] MEDS: PRENATAL VITAMINS W/ FOLIC ACID TABLET (FP) PO SCH (13:45)
[2018-03-21] MEDS: ACETAMINOPHEN 325 MG TABLET (FP) PO PRN (14:29)
[2018-03-21] MEDS: chlordiazePOXIDE HCL 25 MG CAPSULE PO PRN (19:32)
[2018-03-21] MEDS: THIAMINE HCL 100 MG TABLET (FP) PO SCH (22:50)
[2018-03-22] MEDS: chlordiazePOXIDE HCL 25 MG CAPSULE PO SCH (06:24)
[2018-03-22] MEDS: chlordiazePOXIDE HCL 25 MG CAPSULE PO PRN (06:38)
--- NOTE | 2018-03-22 11:00 | PN ---
[facility] CIWA - CIWA Score Nausea/Vomitin Muscle Tremors: 2 Anxiety: 2 Agitation: 2 Paroxysmal Sweats: 2 Orientation: 0-Oriented Tacttile Disturbances: 1-Very Mild Itch/Numbness Auditory Disturbances: 1-Very Mild Visual Disturbances: 0-None Headache: 2-Mild CIWA-Ar Total Score: 14 S Progress Note (SOAP) Subjective: Interrupted sleep and malaise Objective: 03/22/18 11:00 Vital Signs - 8 hr 03/22/18 03/22/18 03:30 06:37 Temperature 97.5 F L Pulse Rate 86 Respiratory 18 18 Rate Blood Pressure 151/68 Laboratory Last Values WBC 4.6 K/mm3 (4.0-10.0) 03/21/18 06:00 RBC 4.27 M/mm3 (4.00-5.60) 03/21/18 06:00 Hgb 13.8 GM/dL (11.7-16.9) 03/21/18 06:00 Hct 40.4 % (35.4-49) 03/21/18 06:00 MCV 94.5 fl (80-96) 03/21/18 06:00 MCH 32.4 pg (25.7-33.7) 03/21/18 06:00 MCHC 34.3 g/dl (32.0-35.9) 03/21/18 06:00 RDW 13.4 % (11.9-15.9) 03/21/18 06:00 Plt Count 314 K/MM3 (134-434) D 03/21/18 06:00 MPV 8.5 fl (7.5-11.1) 03/21/18 06:00 Sodium 137 mmol/L (136-145) 03/21/18 06:00 Potassium 4.0 mmol/L (3.5-5.1) 03/21/18 06:00 Chloride 101 mmol/L (98-107) 03/21/18 06:00 Carbon Dioxide 27 mmol/L (21-32) 03/21/18 06:00 Anion Gap 9 MMOL/L (8-16) 03/21/18 06:00 BUN 14 mg/dL (7-18) 03/21/18 06:00 Creatinine 1.0 mg/dL (0.55-1.3) 03/21/18 06:00 Creat Clearance w eGFR > 60 (>60) 03/21/18 06:00 Random Glucose 78 mg/dL (74-106) 03/21/18 06:00 Calcium 8.8 mg/dL (8.5-10.1) 03/21/18 06:00 Total Bilirubin 0.7 mg/dL (0.2-1) 03/21/18 06:00 AST 33 U/L (15-37) 03/21/18 06:00 ALT 59 U/L (13-61) 03/21/18 06:00 Alkaline Phosphatase 78 U/L (45-117) 03/21/18 06:00 Total Protein 7.6 g/dl (6.4-8.2) 03/21/18 06:00 Albumin 4.0 g/dl (3.4-5.0) 03/21/18 06:00 Urine Color Yellow 03/20/18 13:57 Urine Appearance Clear 03/20/18 13:57 Urine pH 6.0 (5.0-8.0) 03/20/18 13:57 Ur Specific [place] 1.030 (1.010-1.035) 03/20/18 13:57 Urine Protein Negative (NEGATIVE) 03/20/18 13:57 Urine Glucose (UA) Negative (NEGATIVE) 03/20/18 13:57 Urine Ketones Negative (NEGATIVE) 03/20/18 13:57 Urine Blood Negative (NEGATIVE) 03/20/18 13:57 Urine Nitrite Negative (NEGATIVE) 03/20/18 13:57 Urine Bilirubin Negative (<2.0 mg/dL) 03/20/18 13:57 Urine Urobilinogen 2.0 mg/dL (0.2-1.0) 03/20/18 13:57 Ur Leukocyte Esterase Negative (NEGATIVE) 03/20/18 13:57 RPR Titer Nonreactive (NONREACTIVE) 03/21/18 06:00 Labs noted Assessment: 03/22/18 11:00 Withdrawal sx Plan: Continue detox
[2018-03-22] MEDS: PRENATAL VITAMINS W/ FOLIC ACID TABLET (FP) PO SCH (13:50)
[2018-03-22] MEDS: TAMSULOSIN HCL 0.4 MG CAP PO SCH (13:51)
[2018-03-22] MEDS: chlordiazePOXIDE 5 MG CAPSULE PO SCH ×3 (14:58→22:09)
[2018-03-22] MEDS: THIAMINE HCL 100 MG TABLET (FP) PO SCH (22:09)
[2018-03-22] MEDS: ACETAMINOPHEN 325 MG TABLET (FP) PO PRN (22:12)
[2018-03-23] MEDS: chlordiazePOXIDE 5 MG CAPSULE PO SCH (06:38)
[2018-03-23] MEDS: TAMSULOSIN HCL 0.4 MG CAP PO SCH (08:00)
[2018-03-23] MEDS: chlordiazePOXIDE HCL 10 MG CAPSULE PO SCH ×3 (10:07→23:31)
[2018-03-23] MEDS: PRENATAL VITAMINS W/ FOLIC ACID TABLET (FP) PO SCH (10:09)
--- NOTE | 2018-03-23 11:42 | PN ---
[facility] Progress Note (SOAP) Subjective: feeling better no tremor less sweat talking about aftercare with staff Objective: 03/23/18 11:39 Vital Signs Temperature 96.8 F L 03/23/18 09:43 Pulse Rate 95 H 03/23/18 09:43 Respiratory Rate 18 12 09:43 Blood Pressure 91/59 L 03/23/18 09:43 O2 Sat by Pulse Oximetry (%) Laboratory Last Values WBC 4.6 K/mm3 (4.0-10.0) 03/21/18 06:00 RBC 4.27 M/mm3 (4.00-5.60) 03/21/18 06:00 Hgb 13.8 GM/dL (11.7-16.9) 03/21/18 06:00 Hct 40.4 % (35.4-49) 03/21/18 06:00 MCV 94.5 fl (80-96) 03/21/18 06:00 MCH 32.4 pg (25.7-33.7) 03/21/18 06:00 MCHC 34.3 g/dl (32.0-35.9) 03/21/18 06:00 RDW 13.4 % (11.9-15.9) 03/21/18 06:00 Plt Count 314 K/MM3 (134-434) D 03/21/18 06:00 MPV 8.5 fl (7.5-11.1) 03/21/18 06:00 Sodium 137 mmol/L (136-145) 03/21/18 06:00 Potassium 4.0 mmol/L (3.5-5.1) 03/21/18 06:00 Chloride 101 mmol/L (98-107) 03/21/18 06:00 Carbon Dioxide 27 mmol/L (21-32) 03/21/18 06:00 Anion Gap 9 MMOL/L (8-16) 03/21/18 06:00 BUN 14 mg/dL (7-18) 03/21/18 06:00 Creatinine 1.0 mg/dL (0.55-1.3) 03/21/18 06:00 Creat Clearance w eGFR > 60 (>60) 03/21/18 06:00 Random Glucose 78 mg/dL (74-106) 03/21/18 06:00 Calcium 8.8 mg/dL (8.5-10.1) 03/21/18 06:00 Total Bilirubin 0.7 mg/dL (0.2-1) 03/21/18 06:00 AST 33 U/L (15-37) 03/21/18 06:00 ALT 59 U/L (13-61) 03/21/18 06:00 Alkaline Phosphatase 78 U/L (45-117) 03/21/18 06:00 Total Protein 7.6 g/dl (6.4-8.2) 03/21/18 06:00 Albumin 4.0 g/dl (3.4-5.0) 03/21/18 06:00 Urine Color Yellow 03/20/18 13:57 Urine Appearance Clear 03/20/18 13:57 Urine pH 6.0 (5.0-8.0) 03/20/18 13:57 Ur Specific [place] 1.030 (1.010-1.035) 03/20/18 13:57 Urine Protein Negative (NEGATIVE) 03/20/18 13:57 Urine Glucose (UA) Negative (NEGATIVE) 03/20/18 13:57 Urine Ketones Negative (NEGATIVE) 03/20/18 13:57 Urine Blood Negative (NEGATIVE) 03/20/18 13:57 Urine Nitrite Negative (NEGATIVE) 03/20/18 13:57 Urine Bilirubin Negative (<2.0 mg/dL) 03/20/18 13:57 Urine Urobilinogen 2.0 mg/dL (0.2-1.0) 03/20/18 13:57 Ur Leukocyte Esterase Negative (NEGATIVE) 03/20/18 13:57 RPR Titer Nonreactive (NONREACTIVE) 03/21/18 06:00 lab noted Assessment: 03/23/18 11:41 mild withdrawal sx Plan: medically supervised detox
[2018-03-23 22:09] VITALS: BP 111/70; PULSE 96; TEMP 97.7
[2018-03-23] MEDS: THIAMINE HCL 100 MG TABLET (FP) PO SCH (23:32)
--- NOTE | 2018-03-24 02:51 | DS ---
[facility] Detox Discharge Summary Admission Date: 03/20/18 Discharge Date: 03/24/18 - History Additional Comments: Patient is leaving at 2.44AM against medical advice. Patient was scheduled to be discharged today but insisted on leaving now. Risks and consequences of his actions explained to him but patient was adamant on leaving. Patient is medically stable at this time. Alert and oriented to person, place and time. Vital signs stable Pertinent Past History: HTN, Anxiety disorder, depession, cocaine dependence - Physical Exam Results Vital Signs: Vital Signs Temperature 97.7 F 03/23/18 22:09 Pulse Rate 96 H 03/23/18 22:09 Respiratory Rate 18 03/23/18 22:09 Blood Pressure 111/70 03/23/18 22:09 O2 Sat by Pulse Oximetry (%) Laboratory Last Values WBC 4.6 K/mm3 (4.0-10.0) 03/21/18 06:00 RBC 4.27 M/mm3 (4.00-5.60) 03/21/18 06:00 Hgb 13.8 GM/dL (11.7-16.9) 03/21/18 06:00 Hct 40.4 % (35.4-49) 03/21/18 06:00 MCV 94.5 fl (80-96) 03/21/18 06:00 MCH 32.4 pg (25.7-33.7) 03/21/18 06:00 MCHC 34.3 g/dl (32.0-35.9) 03/21/18 06:00 RDW 13.4 % (11.9-15.9) 03/21/18 06:00 Plt Count 314 K/MM3 (134-434) D 03/21/18 06:00 MPV 8.5 fl (7.5-11.1) 03/21/18 06:00 Sodium 137 mmol/L (136-145) 03/21/18 06:00 Potassium 4.0 mmol/L (3.5-5.1) 03/21/18 06:00 Chloride 101 mmol/L (98-107) 03/21/18 06:00 Carbon Dioxide 27 mmol/L (21-32) 03/21/18 06:00 Anion Gap 9 MMOL/L (8-16) 03/21/18 06:00 BUN 14 mg/dL (7-18) 03/21/18 06:00 Creatinine 1.0 mg/dL (0.55-1.3) 03/21/18 06:00 Creat Clearance w eGFR > 60 (>60) 03/21/18 06:00 Random Glucose 78 mg/dL (74-106) 03/21/18 06:00 Calcium 8.8 mg/dL (8.5-10.1) 03/21/18 06:00 Total Bilirubin 0.7 mg/dL (0.2-1) 03/21/18 06:00 AST 33 U/L (15-37) 03/21/18 06:00 ALT 59 U/L (13-61) 03/21/18 06:00 Alkaline Phosphatase 78 U/L (45-117) 03/21/18 06:00 Total Protein 7.6 g/dl (6.4-8.2) 03/21/18 06:00 Albumin 4.0 g/dl (3.4-5.0) 03/21/18 06:00 Urine Color Yellow 03/20/18 13:57 Urine Appearance Clear 03/20/18 13:57 Urine pH 6.0 (5.0-8.0) 03/20/18 13:57 Ur Specific [place] 1.030 (1.010-1.035) 03/20/18 13:57 Urine Protein Negative (NEGATIVE) 03/20/18 13:57 Urine Glucose (UA) Negative (NEGATIVE) 03/20/18 13:57 Urine Ketones Negative (NEGATIVE) 03/20/18 13:57 Urine Blood Negative (NEGATIVE) 03/20/18 13:57 Urine Nitrite Negative (NEGATIVE) 03/20/18 13:57 Urine Bilirubin Negative (<2.0 mg/dL) 03/20/18 13:57 Urine Urobilinogen 2.0 mg/dL (0.2-1.0) 03/20/18 13:57 Ur Leukocyte Esterase Negative (NEGATIVE) 03/20/18 13:57 RPR Titer Nonreactive (NONREACTIVE) 03/21/18 06:00 Pertinent Admission Physical Exam Findings: Alcohol withdrawal symptoms - Medication Discharge Medications: Ambulatory Orders Tamsulosin HCl [Flomax -] 0.4 mg PO DAILY #30 cap.er.[id number] 06/12/17 hydrOXYzine PAMOATE [Vistaril -] 50 mg PO TID 02/10/18 - Diagnosis (1) Arthritis of both knees Current Visit: Yes Status: Chronic (2) Alcohol dependence with uncomplicated withdrawal Current Visit: Yes Status: Chronic (3) Insomnia Current Visit: Yes Status: Chronic Qualifiers: Insomnia type: unspecified Qualified Code(s): G47.00 - Insomnia, unspecified (4) Sedative, hypnotic or anxiolytic abuse Current Visit: Yes Status: Chronic (5) Back pain Current Visit: No Status: Chronic Qualifiers: Back pain location: low back pain Sciatica presence: without sciatica (6) Benign prostate hyperplasia Current Visit: Yes Status: Chronic Qualifiers: Lower urinary tract symptom presence: symptoms present (7) Eczema Current Visit: Yes Status: Chronic Qualifiers: Eczema type: infantile Qualified Code(s): L20.83 - Infantile (acute) ( chronic) eczema (8) Nicotine dependence Current Visit: No Status: Chronic Qualifiers: Nicotine product type: cigarettes Substance use status: in withdrawal Qualified Code(s): F17.213 - Nicotine dependence, cigarettes, with withdrawal (9) Primary osteoarthritis of right knee Current Visit: No Status: Chronic - AMA Did Patient Leave Against Medical Advice: Yes
== END 2018-03-24 02:45 | disposition left against medical advice (07) | DRG 770 ==
LOC: YASAS 08:29 → Y6N 09:45
PROC: HZ2ZZZZ Detoxification Services for Substance Abuse Treatment (ICD-10-PCS; principal; 2018-03-20)
DX: F10.230 Alcohol dependence with withdrawal, uncomplicated (principal); F14.20 Cocaine dependence, uncomplicated; F13.10 Sedative, hypnotic or anxiolytic abuse, uncomplicated; F17.213 Nicotine dependence, cigarettes, with withdrawal; F41.9 Anxiety disorder, unspecified; F32.9 Major depressive disorder, single episode, unspecified; F31.9 Bipolar disorder, unspecified; G47.00 Insomnia, unspecified; L30.9 Dermatitis, unspecified; M17.11 Unilateral primary osteoarthritis, right knee; M54.5 Low back pain; N40.0 Benign prostatic hyperplasia without lower urinary tract symptoms; R63.4 Abnormal weight loss; Z68.22 Body mass index [BMI] 22.0-22.9, adult
CPT/HCPCS: 36415; 80053; 81003; 85027; 86593

== ENCOUNTER 2018-05-17 08:43 | Inpatient (IN) | payer OTHER ==
[2018-05-17 08:53] VITALS: BMI 21.6
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
[2018-05-17] MEDS ORDERED: IBUPROFEN 400 MG TABLET (FP) PO PRN (09:44)
[2018-05-17] MEDS ORDERED: MAG HYDROX/AL HYDROX/SIMETH 30 ML UNIT-DOSE CUP PO PRN (09:44)
[2018-05-17] MEDS ORDERED: guaiFENesin/D-METHORPHAN HB 10 ML UNIT-DOSE CUPS PO PRN (09:44)
[2018-05-17] MEDS ORDERED: chlordiazePOXIDE HCL 25 MG CAPSULE PO PRN (09:44)
[2018-05-17] MEDS ORDERED: LOPERAMIDE HCL 2 MG CAPSULE PO PRN (09:44)
[2018-05-17] MEDS ORDERED: P-EPHED 60MG/TRIPROLIDI 2.5MG TABLET PO PRN (09:44)
[2018-05-17] MEDS ORDERED: MAGNESIUM HYDROX 2400MG/30ML ORAL SUSPENSION 30 ML CUP PO PRN (09:44)
[2018-05-17] MEDS ORDERED: MAGNESIUM CITRATE 300 ML BOTTLE PO PRN (09:44)
[2018-05-17] MEDS ORDERED: MENTHOL/PHENOL 1 EACH UD MM PRN (09:44)
[2018-05-17] MEDS ORDERED: ACETAMINOPHEN 325 MG TABLET (FP) PO PRN (09:44)
[2018-05-17] MEDS ORDERED: TAMSULOSIN HCL 0.4 MG CAP PO SCH (10:00)
[2018-05-17] MEDS ORDERED: chlordiazePOXIDE HCL 25 MG CAPSULE PO ONE (10:45)
[2018-05-17] MEDS: BACITRACIN 0.9 GM PACKET TP SCH (11:23)
[2018-05-17] MEDS: PRENATAL VITAMINS W/ FOLIC ACID TABLET (FP) PO SCH (11:24)
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
[2018-05-17] MEDS: chlordiazePOXIDE HCL 25 MG CAPSULE PO SCH ×2 (17:31→22:28)
[2018-05-17] MEDS ORDERED: MELATONIN 5 MG TABLETS PO PRN (22:00)
[2018-05-17] MEDS: TAMSULOSIN HCL 0.4 MG CAP PO SCH (22:28)
[2018-05-17] MEDS: THIAMINE HCL 100 MG TABLET (FP) PO SCH (22:28)
[2018-05-17] MEDS: hydrOXYzine PAMOATE 25 MG CAPSULE (FP) PO PRN (22:29)
[2018-05-18] MEDS: chlordiazePOXIDE HCL 25 MG CAPSULE PO SCH ×4 (06:17→22:17)
[2018-05-18] MEDS: BACITRACIN 0.9 GM PACKET TP SCH (10:23)
[2018-05-18] MEDS: PRENATAL VITAMINS W/ FOLIC ACID TABLET (FP) PO SCH (10:23)
[2018-05-18 10:37] LABS: ALBUMIN 3.1 g/dl (3.4-5.0); ALK PHOS 61 U/L (45-117); ANION GAP 9 MMOL/L (8-16); BILIRUBIN,TOTAL 0.4 mg/dL (0.2-1); BLOOD UREA NITROGEN 11 mg/dL (7-18); CALCIUM 8.6 mg/dL (8.5-10.1); CHLORIDE 106 mmol/L (98-107); CO2 28 mmol/L (21-32); CREATININE 0.8 mg/dL (0.55-1.3); GLUCOSE,RANDOM 100 mg/dL (74-106); POTASSIUM 3.6 mmol/L (3.5-5.1); SGOT/AST 12 U/L (15-37); SGPT/ALT 30 U/L (13-61); SODIUM 143 mmol/L (136-145); TOT PROT 6.2 g/dl (6.4-8.2)
[2018-05-18 10:41] LABS: HEMATOCRIT 39.2 % (35.4-49); MCH 31.3 pg (25.7-33.7); MCHC 33.2 g/dl (32.0-35.9); MEAN CELL VOLUME 94.4 fl (80-96); PLATELET COUNT 174 K/MM3 (134-434); RBC 4.15 M/mm3 (4.00-5.60); RDW 12.9 % (11.9-15.9); WHITE BLOOD COUNT 2.6 K/mm3 (4.0-10.0)
--- NOTE | 2018-05-18 12:25 | PN ---
S CIWA - CIWA Score Nausea/Vomitin-No Nausea/No Vomiting Muscle Tremors: None Anxiety: 0-No Anxiety, at Ease Agitation: 0-Normal Activity Orientation: 0-Oriented Tacttile Disturbances: 6-Extreme Hallucinations Visual Disturbances: 0-None Headache: 0-None Present S Progress Note (SOAP) Subjective: s: says feelinf fine- meds are good O: Vital Signs - 24 hr 05/17/18 05/17/18 05/17/18 14:00 17:45 22:24 Temperature 98.2 F 98.1 F 98.2 F Pulse Rate 103 H 100 H 110 H Respiratory 18 16 18 Rate Blood Pressure 119/91 109/67 107/76 05/18/18 05/18/18 05/18/18 00:30 03:30 07:29 Temperature 97.5 F L Pulse Rate 97 H Respiratory 18 16 20 Rate Blood Pressure 122/83 05/18/18 09:40 Temperature 96.4 F L Pulse Rate 119 H Respiratory 18 Rate Blood Pressure 126/72 Laboratory Tests 05/18/18 05/18/18 05/18/18 07:50 07:50 07:50 WBC 2.6 L RBC 4.15 Hgb 13.0 Hct 39.2 MCV 94.4 MCH 31.3 MCHC 33.2 RDW 12.9 Plt Count 174 D MPV 9.0 Sodium 143 Potassium 3.6 Chloride 106 Carbon Dioxide 28 Anion Gap 9 BUN 11 Creatinine 0.8 Creat Clearance w eGFR > 60 Random Glucose 100 Calcium 8.6 Total Bilirubin 0.4 AST 12 L ALT 30 Alkaline Phosphatase 61 Total Protein 6.2 L Albumin 3.1 L RPR Titer Nonreactive a/p: continue alcohol detox protocol: pt danika ocampo
[2018-05-18] MEDS: TAMSULOSIN HCL 0.4 MG CAP PO SCH (22:18)
[2018-05-18] MEDS: hydrOXYzine PAMOATE 25 MG CAPSULE (FP) PO PRN (22:18)
[2018-05-18] MEDS: THIAMINE HCL 100 MG TABLET (FP) PO SCH (22:18)
[2018-05-19] MEDS: chlordiazePOXIDE HCL 25 MG CAPSULE PO SCH ×2 (05:13→10:02)
[2018-05-19] MEDS: PRENATAL VITAMINS W/ FOLIC ACID TABLET (FP) PO SCH (10:02)
[2018-05-19] MEDS: BACITRACIN 0.9 GM PACKET TP SCH (10:02)
--- NOTE | 2018-05-19 10:31 | PN ---
S CIWA - CIWA Score Nausea/Vomitin-No Nausea/No Vomiting Muscle Tremors: 3 Anxiety: 1-Mildly Anxious Agitation: 2 Paroxysmal Sweats: 1-Minimal Palms Moist Orientation: 0-Oriented Tacttile Disturbances: 0-None Auditory Disturbances: 0-None Visual Disturbances: 0-None Headache: 0-None Present CIWA-Ar Total Score: 7 S Progress Note (SOAP) Subjective: sweats last night interrupted sleep Objective: 05/19/18 10:30 Vital Signs Temperature 96.4 F L 05/19/18 09:19 Pulse Rate 97 H 05/19/18 09:19 Respiratory Rate 18 05/19/18 09:19 Blood Pressure 104/68 05/19/18 09:19 O2 Sat by Pulse Oximetry (%) Laboratory Tests 05/18/18 05/18/18 05/18/18 07:50 07:50 07:50 WBC 2.6 L RBC 4.15 Hgb 13.0 Hct 39.2 MCV 94.4 MCH 31.3 MCHC 33.2 RDW 12.9 Plt Count 174 D MPV 9.0 Sodium 143 Potassium 3.6 Chloride 106 Carbon Dioxide 28 Anion Gap 9 BUN 11 Creatinine 0.8 Creat Clearance w eGFR > 60 Random Glucose 100 Calcium 8.6 Total Bilirubin 0.4 AST 12 L ALT 30 Alkaline Phosphatase 61 Total Protein 6.2 L Albumin 3.1 L RPR Titer Nonreactive aaox3 ambulating no acute distress Assessment: 05/19/18 10:30 mild withdrawal sx Plan: continue detox increase fluids
[2018-05-19] MEDS: chlordiazePOXIDE 5 MG CAPSULE PO SCH ×2 (17:37→22:46)
[2018-05-19] MEDS: THIAMINE HCL 100 MG TABLET (FP) PO SCH (21:28)
[2018-05-19] MEDS: hydrOXYzine PAMOATE 25 MG CAPSULE (FP) PO PRN (21:28)
[2018-05-19] MEDS: TAMSULOSIN HCL 0.4 MG CAP PO SCH (21:28)
[2018-05-20] MEDS: chlordiazePOXIDE 5 MG CAPSULE PO SCH ×2 (05:56→10:04)
[2018-05-20] MEDS: PRENATAL VITAMINS W/ FOLIC ACID TABLET (FP) PO SCH (10:04)
[2018-05-20] MEDS: BACITRACIN 0.9 GM PACKET TP SCH (10:05)
--- NOTE | 2018-05-20 11:03 | PN ---
[facility] Progress Note (SOAP) Subjective: body aches Objective: 05/20/18 11:02 Vital Signs Temperature 97.0 F L 05/20/18 06:00 Pulse Rate 76 05/20/18 06:00 Respiratory Rate 18 05/20/18 06:00 Blood Pressure 124/80 05/20/18 06:00 O2 Sat by Pulse Oximetry (%) aaox3 ambulating no acute distress Assessment: 05/20/18 11:02 mild withdrawal sx Plan: continue detox d/c in am
[2018-05-20] MEDS: hydrOXYzine PAMOATE 50 MG CAPSULE (FP) PO PRN ×2 (12:29→22:08)
[2018-05-20] MEDS: chlordiazePOXIDE HCL 10 MG CAPSULE PO SCH ×2 (18:58→22:09)
[2018-05-20] MEDS: TAMSULOSIN HCL 0.4 MG CAP PO SCH (22:08)
[2018-05-20] MEDS: THIAMINE HCL 100 MG TABLET (FP) PO SCH (22:09)
[2018-05-21] MEDS: chlordiazePOXIDE HCL 10 MG CAPSULE PO SCH (06:30)
[2018-05-21 07:47] VITALS: BP 116/85; PULSE 108; TEMP 96.1
--- NOTE | 2018-05-21 09:30 | DS ---
[facility] Detox Discharge Summary Admission Date: 05/17/18 Discharge Date: 05/21/18 - History Present History: Alcohol Dependence, Cocaine Dependence - Physical Exam Results Vital Signs: Vital Signs Temperature 96.1 F L 05/21/18 07:47 Pulse Rate 108 H 05/21/18 07:47 Respiratory Rate 20 05/21/18 07:47 Blood Pressure 116/85 05/21/18 07:47 O2 Sat by Pulse Oximetry (%) - Treatment Hospital Course: Detox Protocol Followed, Detoxed Safely, Responded well, Discharged Condition Good, Rehab Referral Accepted - Medication Discharge Medications: Ambulatory Orders Tamsulosin HCl [Flomax -] 0.4 mg PO DAILY #30 cap.er.[id number] 06/12/17 hydrOXYzine PAMOATE [Vistaril -] 50 mg PO HS 02/10/18 - Diagnosis (1) Alcohol dependence with uncomplicated withdrawal Current Visit: Yes Status: Chronic (2) Arthritis of both knees Current Visit: Yes Status: Chronic (3) Back pain Current Visit: Yes Status: Chronic Qualifiers: Back pain location: low back pain Sciatica presence: without sciatica (4) Benign prostate hyperplasia Current Visit: Yes Status: Chronic Qualifiers: Lower urinary tract symptom presence: symptoms present (5) Cocaine dependence Current Visit: Yes Status: Chronic Qualifiers: Substance use status: uncomplicated Qualified Code(s): F14.20 - Cocaine dependence, uncomplicated (6) Eczema Current Visit: Yes Status: Chronic Qualifiers: Eczema type: other Qualified Code(s): L30.8 - Other specified dermatitis (7) History of bipolar disorder Current Visit: Yes Status: Chronic (8) Insomnia Current Visit: Yes Status: Chronic Qualifiers: Insomnia type: unspecified Qualified Code(s): G47.00 - Insomnia, unspecified (9) Nicotine dependence Current Visit: Yes Status: Chronic Qualifiers: Nicotine product type: cigarettes Substance use status: uncomplicated Qualified Code(s): F17.210 - Nicotine dependence, cigarettes, uncomplicated (10) Non-compliance Current Visit: Yes Status: Chronic (11) Opioid use disorder, mild, abuse Current Visit: Yes Status: Chronic (12) Substance induced mood disorder Current Visit: Yes Status: Chronic (13) Sedative abuse Current Visit: No Status: Acute (14) Substance-induced sleep disorder Current Visit: No Status: Acute (15) Substance-induced sleep disorder Current Visit: No Status: Acute (16) Weight loss Current Visit: No Status: Acute (17) Bipolar 1 disorder, depressed Current Visit: No Status: Chronic (18) Bipolar II disorder Current Visit: No Status: Chronic (19) Bipolar disorder Current Visit: No Status: Chronic (20) Mild alprazolam abuse Current Visit: No Status: Chronic (21) Primary osteoarthritis of right knee Current Visit: No Status: Chronic (22) Sedative, hypnotic or anxiolytic abuse Current Visit: No Status: Chronic - AMA Did Patient Leave Against Medical Advice: No (referred to out patient rehab)
== END 2018-05-21 09:15 | disposition home or self-care (01) | DRG 773 ==
LOC: YASAS 08:43 → Y6N 10:20
PROVIDERS: ADMIT Neuromusculoskeletal Medicine & OMM; ATTEND Neuromusculoskeletal Medicine & OMM
PROC: HZ2ZZZZ Detoxification Services for Substance Abuse Treatment (ICD-10-PCS; principal; 2018-05-17)
DX: F10.230 Alcohol dependence with withdrawal, uncomplicated (principal); F14.20 Cocaine dependence, uncomplicated; F11.10 Opioid abuse, uncomplicated; F13.10 Sedative, hypnotic or anxiolytic abuse, uncomplicated; F17.210 Nicotine dependence, cigarettes, uncomplicated; F19.24 Other psychoactive substance dependence with psychoactive substance-induced mood disorder; F19.282 Other psychoactive substance dependence with psychoactive substance-induced sleep disorder; F31.81 Bipolar II disorder; M13.862 Other specified arthritis, left knee; M13.861 Other specified arthritis, right knee; M54.5 Low back pain; G89.29 Other chronic pain; N40.0 Benign prostatic hyperplasia without lower urinary tract symptoms; L30.8 Other specified dermatitis; G47.00 Insomnia, unspecified; Z91.19 Patient's noncompliance with other medical treatment and regimen
CPT/HCPCS: 36415; 80053; 85027; 86593

== ENCOUNTER 2019-02-21 14:32 | Inpatient (IN) | payer OTHER ==
[2019-02-21 15:49] VITALS: BMI 25.7
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
[2019-02-21] MEDS ORDERED: hydrOXYzine PAMOATE 25 MG CAPSULE (FP) PO PRN (18:51)
[2019-02-21] MEDS ORDERED: MELATONIN 5 MG TABLETS PO PRN (18:51)
[2019-02-21] MEDS ORDERED: IBUPROFEN 400 MG TABLET (FP) PO PRN (18:51)
[2019-02-21] MEDS ORDERED: chlordiazePOXIDE HCL 25 MG CAPSULE PO PRN (18:51)
[2019-02-21] MEDS ORDERED: MENTHOL/PHENOL 1 EACH UD MM PRN (18:51)
[2019-02-21] MEDS ORDERED: BISMUTH SUBSALICYLATE 524 MG/30 ML UD PO PRN (18:51)
[2019-02-21] MEDS ORDERED: ACETAMINOPHEN 325 MG TABLET (FP) PO PRN ×2 (18:51)
[2019-02-21] MEDS ORDERED: METHOCARBAMOL 500 MG TABLET PO PRN (18:51)
[2019-02-21] MEDS ORDERED: MAGNESIUM HYDROX 2400MG/30ML ORAL SUSPENSION 30 ML CUP PO PRN (18:51)
[2019-02-21] MEDS ORDERED: MAG HYDROX/AL HYDROX/SIMETH 30 ML UNIT-DOSE CUP PO PRN (18:51)
[2019-02-21] MEDS ORDERED: MAGNESIUM CITRATE 300 ML BOTTLE PO PRN (18:51)
[2019-02-21] MEDS: NICOTINE 14 MG/24 HOURS TOPICAL PATCH TD SCH (20:03)
[2019-02-21] MEDS: THIAMINE HCL 100 MG TABLET (FP) PO SCH (22:30)
[2019-02-21] MEDS: chlordiazePOXIDE HCL 25 MG CAPSULE PO SCH (22:31)
[2019-02-22] MEDS: chlordiazePOXIDE HCL 25 MG CAPSULE PO SCH ×4 (06:24→22:27)
[2019-02-22 10:24] LABS: HEMATOCRIT 37.9 % (35.4-49); HEMOGLOBIN 12.5 GM/dL (11.7-16.9); MCH 30.8 pg (25.7-33.7); MCHC 32.9 g/dl (32.0-35.9); MEAN CELL VOLUME 93.5 fl (80-96); MEAN PLT VOLUME 7.5 fl (7.5-11.1); PLATELET COUNT 314 K/MM3 (134-434); RBC 4.05 M/mm3 (4.00-5.60); RDW 13.3 % (11.9-15.9); WHITE BLOOD COUNT 2.7 K/mm3 (4.0-10.0)
[2019-02-22 10:31] LABS: ALBUMIN 2.9 g/dl (3.4-5.0); BILIRUBIN,TOTAL 0.7 mg/dL (0.2-1); BLOOD UREA NITROGEN 9.4 mg/dL (7-18); CALCIUM 8.2 mg/dL (8.5-10.1); CREATININE 0.9 mg/dL (0.55-1.3); POTASSIUM 3.6 mmol/L (3.5-5.1); TOT PROT 5.5 g/dl (6.4-8.2)
[2019-02-22] MEDS: PRENATAL VITAMINS W/ FOLIC ACID TABLET (FP) PO SCH (10:43)
[2019-02-22] MEDS: NICOTINE 14 MG/24 HOURS TOPICAL PATCH TD SCH (10:45)
--- NOTE | 2019-02-22 11:29 | PN ---
S CIWA - CIWA Score Nausea/Vomitin-Mild Nausea/No Vomiting Muscle Tremors: 3 Anxiety: 3 Agitation: 2 Paroxysmal Sweats: 2 Orientation: 0-Oriented Tacttile Disturbances: 1-Very Mild Itch/Numbness Auditory Disturbances: 1-Very Mild Visual Disturbances: 0-None Headache: 1-Very Mild CIWA-Ar Total Score: 14 S Progress Note (SOAP) Subjective: 58 years old male admitted on 02/21/19 for alcohol withdrawal sx management treatd with librium detox regimen ate breakfast feeling tired resting on bed limited conversation with staff Objective: 02/22/19 11:27 Vital Signs Temperature 97.4 F L 02/22/19 09:06 Pulse Rate 88 02/22/19 09:06 Respiratory Rate 18 02/22/19 09:06 Blood Pressure 106/67 02/22/19 09:06 O2 Sat by Pulse Oximetry (%) Laboratory Last Values WBC 2.7 K/mm3 (4.0-10.0) L 02/22/19 07:50 RBC 4.05 M/mm3 (4.00-5.60) 02/22/19 07:50 Hgb 12.5 GM/dL (11.7-16.9) 02/22/19 07:50 Hct 37.9 % (35.4-49) 02/22/19 07:50 MCV 93.5 fl (80-96) 02/22/19 07:50 MCH 30.8 pg (25.7-33.7) 02/22/19 07:50 MCHC 32.9 g/dl (32.0-35.9) 02/22/19 07:50 RDW 13.3 % (11.9-15.9) 02/22/19 07:50 Plt Count 314 K/MM3 (134-434) D 02/22/19 07:50 MPV 7.5 fl (7.5-11.1) D 02/22/19 07:50 Sodium 140 mmol/L (136-145) 02/22/19 07:40 Potassium 3.6 mmol/L (3.5-5.1) 02/22/19 07:40 Chloride 105 mmol/L (98-107) 02/22/19 07:40 Carbon Dioxide 30 mmol/L (21-32) 02/22/19 07:40 Anion Gap 4 MMOL/L (8-16) L 02/22/19 07:40 BUN 9.4 mg/dL (7-18) 02/22/19 07:40 Creatinine 0.9 mg/dL (0.55-1.3) 02/22/19 07:40 Est GFR (CKD-EPI)AfAm 107.22 02/22/19 07:40 Est GFR (CKD-EPI)NonAf 92.51 02/22/19 07:40 Random Glucose 100 mg/dL (74-106) 02/22/19 07:40 Calcium 8.2 mg/dL (8.5-10.1) L 02/22/19 07:40 Total Bilirubin 0.7 mg/dL (0.2-1) 02/22/19 07:40 AST 36 U/L (15-37) 02/22/19 07:40 ALT 36 U/L (13-61) 02/22/19 07:40 Alkaline Phosphatase 66 U/L (45-117) 02/22/19 07:40 Total Protein 5.5 g/dl (6.4-8.2) L 02/22/19 07:40 Albumin 2.9 g/dl (3.4-5.0) L 02/22/19 07:40 RPR Titer Nonreactive (NONREACTIVE) 02/22/19 07:40 HIV 1&2 Antibody Screen Negative 02/22/19 07:40 HIV P24 Antigen Negative 02/22/19 07:40 lab noted long history of wbc fluctuation patient is alert oriented x 3 wants to detox off from alcohol drinking discuss behavior therapy and psychosocial therapy adjacent to support networking 02/22/19 11:31 02/22/19 11:31 Assessment: 02/22/19 11:32 alcohol withdrawal sx Plan: continue librium detox regimen
[2019-02-22] MEDS ORDERED: TAMSULOSIN HCL 0.4 MG CAP PO ONE ×2 (11:47→22:50)
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
[2019-02-22] MEDS ORDERED: SUVOREXANT 10 MG TABLET PO PRN (22:00)
[2019-02-22] MEDS: THIAMINE HCL 100 MG TABLET (FP) PO SCH (22:27)
[2019-02-23] MEDS: chlordiazePOXIDE HCL 25 MG CAPSULE PO SCH ×4 (05:17→22:34)
--- NOTE | 2019-02-23 10:35 | PN ---
[facility] CIWA - CIWA Score Nausea/Vomitin-Mild Nausea/No Vomiting Muscle Tremors: 4-Moderate,w/Arms Extend Anxiety: 3 Agitation: 2 Paroxysmal Sweats: 1-Minimal Palms Moist Orientation: 0-Oriented Tacttile Disturbances: 1-Very Mild Itch/Numbness Auditory Disturbances: 0-None Visual Disturbances: 0-None Headache: 0-None Present CIWA-Ar Total Score: 12 S Progress Note (SOAP) Subjective: 58 years old male admitted on 02/21/19 for alcohol withdrawal sx management treated with librium detox regimen patient tolerated well ate breakfast no trouble chewing swallowing tolerated food and fluid well Objective: 02/23/19 10:34 Vital Signs Temperature 97.7 F 02/23/19 09:24 Pulse Rate 100 H 02/23/19 09:24 Respiratory Rate 18 02/23/19 09:24 Blood Pressure 90/60 02/23/19 09:24 O2 Sat by Pulse Oximetry (%) Laboratory Last Values WBC 2.7 K/mm3 (4.0-10.0) L 02/22/19 07:50 RBC 4.05 M/mm3 (4.00-5.60) 02/22/19 07:50 Hgb 12.5 GM/dL (11.7-16.9) 02/22/19 07:50 Hct 37.9 % (35.4-49) 02/22/19 07:50 MCV 93.5 fl (80-96) 02/22/19 07:50 MCH 30.8 pg (25.7-33.7) 02/22/19 07:50 MCHC 32.9 g/dl (32.0-35.9) 02/22/19 07:50 RDW 13.3 % (11.9-15.9) 02/22/19 07:50 Plt Count 314 K/MM3 (134-434) D 02/22/19 07:50 MPV 7.5 fl (7.5-11.1) D 02/22/19 07:50 Sodium 140 mmol/L (136-145) 02/22/19 07:40 Potassium 3.6 mmol/L (3.5-5.1) 02/22/19 07:40 Chloride 105 mmol/L (98-107) 02/22/19 07:40 Carbon Dioxide 30 mmol/L (21-32) 02/22/19 07:40 Anion Gap 4 MMOL/L (8-16) L 02/22/19 07:40 BUN 9.4 mg/dL (7-18) 02/22/19 07:40 Creatinine 0.9 mg/dL (0.55-1.3) 02/22/19 07:40 Est GFR (CKD-EPI)AfAm 107.22 02/22/19 07:40 Est GFR (CKD-EPI)NonAf 92.51 02/22/19 07:40 Random Glucose 100 mg/dL (74-106) 02/22/19 07:40 Calcium 8.2 mg/dL (8.5-10.1) L 02/22/19 07:40 Total Bilirubin 0.7 mg/dL (0.2-1) 02/22/19 07:40 AST 36 U/L (15-37) 02/22/19 07:40 ALT 36 U/L (13-61) 02/22/19 07:40 Alkaline Phosphatase 66 U/L (45-117) 02/22/19 07:40 Total Protein 5.5 g/dl (6.4-8.2) L 02/22/19 07:40 Albumin 2.9 g/dl (3.4-5.0) L 02/22/19 07:40 RPR Titer Nonreactive (NONREACTIVE) 02/22/19 07:40 HIV 1&2 Antibody Screen Negative 02/22/19 07:40 HIV P24 Antigen Negative 02/22/19 07:40 chronic low wbc patient agrees to bringing in lab report to primary care provider for follow up lab noted 02/23/19 10:36 Assessment: 02/23/19 10:36 alcohol withdrawal sx Plan: continue librium detox regimen
[2019-02-23] MEDS: NICOTINE 14 MG/24 HOURS TOPICAL PATCH TD SCH (10:38)
[2019-02-23] MEDS: PRENATAL VITAMINS W/ FOLIC ACID TABLET (FP) PO SCH (10:39)
[2019-02-23] MEDS: TAMSULOSIN HCL 0.4 MG CAP PO SCH (22:34)
[2019-02-23] MEDS: THIAMINE HCL 100 MG TABLET (FP) PO SCH (22:34)
[2019-02-24] MEDS ORDERED: chlordiazePOXIDE HCL 10 MG CAPSULE PO PRN
[2019-02-24] MEDS: chlordiazePOXIDE HCL 10 MG CAPSULE PO SCH ×4 (05:58→22:19)
[2019-02-24] MEDS: PRENATAL VITAMINS W/ FOLIC ACID TABLET (FP) PO SCH (10:23)
[2019-02-24] MEDS: NICOTINE 14 MG/24 HOURS TOPICAL PATCH TD SCH (11:19)
--- NOTE | 2019-02-24 14:34 | PN ---
S CIWA - CIWA Score Nausea/Vomitin-Mild Nausea/No Vomiting Muscle Tremors: 2 Anxiety: 2 Agitation: 2 Paroxysmal Sweats: 1-Minimal Palms Moist Orientation: 0-Oriented Tacttile Disturbances: 0-None Auditory Disturbances: 0-None Visual Disturbances: 0-None Headache: 0-None Present CIWA-Ar Total Score: 8 BHS Progress Note (SOAP) Subjective: 58 years old male admitted on 02/21/19 for alcohol withdrawal sx management treated with librium detox regimen patient had verbal altercation with roommate tody team with counselor discuss self control patient is able to calm down and rationalize the consequences Objective: 02/24/19 14:33 Vital Signs Temperature 98.2 F 02/24/19 13:21 Pulse Rate 84 02/24/19 13:21 Respiratory Rate 18 02/24/19 13:21 Blood Pressure 89/60 L 02/24/19 13:21 O2 Sat by Pulse Oximetry (%) Laboratory Last Values WBC 2.7 K/mm3 (4.0-10.0) L 02/22/19 07:50 RBC 4.05 M/mm3 (4.00-5.60) 02/22/19 07:50 Hgb 12.5 GM/dL (11.7-16.9) 02/22/19 07:50 Hct 37.9 % (35.4-49) 02/22/19 07:50 MCV 93.5 fl (80-96) 02/22/19 07:50 MCH 30.8 pg (25.7-33.7) 02/22/19 07:50 MCHC 32.9 g/dl (32.0-35.9) 02/22/19 07:50 RDW 13.3 % (11.9-15.9) 02/22/19 07:50 Plt Count 314 K/MM3 (134-434) D 02/22/19 07:50 MPV 7.5 fl (7.5-11.1) D 02/22/19 07:50 Sodium 140 mmol/L (136-145) 02/22/19 07:40 Potassium 3.6 mmol/L (3.5-5.1) 02/22/19 07:40 Chloride 105 mmol/L (98-107) 02/22/19 07:40 Carbon Dioxide 30 mmol/L (21-32) 02/22/19 07:40 Anion Gap 4 MMOL/L (8-16) L 02/22/19 07:40 BUN 9.4 mg/dL (7-18) 02/22/19 07:40 Creatinine 0.9 mg/dL (0.55-1.3) 02/22/19 07:40 Est GFR (CKD-EPI)AfAm 107.22 02/22/19 07:40 Est GFR (CKD-EPI)NonAf 92.51 02/22/19 07:40 Random Glucose 100 mg/dL (74-106) 02/22/19 07:40 Calcium 8.2 mg/dL (8.5-10.1) L 02/22/19 07:40 Total Bilirubin 0.7 mg/dL (0.2-1) 02/22/19 07:40 AST 36 U/L (15-37) 02/22/19 07:40 ALT 36 U/L (13-61) 02/22/19 07:40 Alkaline Phosphatase 66 U/L (45-117) 02/22/19 07:40 Total Protein 5.5 g/dl (6.4-8.2) L 02/22/19 07:40 Albumin 2.9 g/dl (3.4-5.0) L 02/22/19 07:40 RPR Titer Nonreactive (NONREACTIVE) 02/22/19 07:40 HIV 1&2 Antibody Screen Negative 02/22/19 07:40 HIV P24 Antigen Negative 02/22/19 07:40 lab noted 02/24/19 15:02 Assessment: 02/24/19 15:03 alcohol withdrawal sx Plan: continue librium detox regimen
[2019-02-24] MEDS: THIAMINE HCL 100 MG TABLET (FP) PO SCH (22:18)
[2019-02-24] MEDS: TAMSULOSIN HCL 0.4 MG CAP PO SCH (22:18)
[2019-02-25] MEDS ORDERED: chlordiazePOXIDE HCL 10 MG CAPSULE PO SCH (05:00)
[2019-02-25 06:08] VITALS: BP 106/69; PULSE 74; TEMP 97.3
--- NOTE | 2019-02-25 11:19 | DS ---
[facility] Detox Discharge Summary Admission Date: 02/21/19 Discharge Date: 02/25/19 - History Present History: Alcohol Dependence Additional Comments: 58 years old male admitted on 02/21/19 for alcohol withdrawal sx management treated with libirum detox regimen patient walk out the detox unit refuses ciwa refuses discharge physical examination - Physical Exam Results Vital Signs: Vital Signs Temperature 97.3 F L 02/25/19 06:07 Pulse Rate 74 02/25/19 06:07 Respiratory Rate 18 02/25/19 06:07 Blood Pressure 106/69 02/25/19 06:07 O2 Sat by Pulse Oximetry (%) Pertinent Admission Physical Exam Findings: alcohol withdrawal sx Laboratory Last Values WBC 2.7 K/mm3 (4.0-10.0) L 02/22/19 07:50 RBC 4.05 M/mm3 (4.00-5.60) 02/22/19 07:50 Hgb 12.5 GM/dL (11.7-16.9) 02/22/19 07:50 Hct 37.9 % (35.4-49) 02/22/19 07:50 MCV 93.5 fl (80-96) 02/22/19 07:50 MCH 30.8 pg (25.7-33.7) 02/22/19 07:50 MCHC 32.9 g/dl (32.0-35.9) 02/22/19 07:50 RDW 13.3 % (11.9-15.9) 02/22/19 07:50 Plt Count 314 K/MM3 (134-434) D 02/22/19 07:50 MPV 7.5 fl (7.5-11.1) D 02/22/19 07:50 Sodium 140 mmol/L (136-145) 02/22/19 07:40 Potassium 3.6 mmol/L (3.5-5.1) 02/22/19 07:40 Chloride 105 mmol/L (98-107) 02/22/19 07:40 Carbon Dioxide 30 mmol/L (21-32) 02/22/19 07:40 Anion Gap 4 MMOL/L (8-16) L 02/22/19 07:40 BUN 9.4 mg/dL (7-18) 02/22/19 07:40 Creatinine 0.9 mg/dL (0.55-1.3) 02/22/19 07:40 Est GFR (CKD-EPI)AfAm 107.22 02/22/19 07:40 Est GFR (CKD-EPI)NonAf 92.51 02/22/19 07:40 Random Glucose 100 mg/dL (74-106) 02/22/19 07:40 Calcium 8.2 mg/dL (8.5-10.1) L 02/22/19 07:40 Total Bilirubin 0.7 mg/dL (0.2-1) 02/22/19 07:40 AST 36 U/L (15-37) 02/22/19 07:40 ALT 36 U/L (13-61) 02/22/19 07:40 Alkaline Phosphatase 66 U/L (45-117) 02/22/19 07:40 Total Protein 5.5 g/dl (6.4-8.2) L 02/22/19 07:40 Albumin 2.9 g/dl (3.4-5.0) L 02/22/19 07:40 RPR Titer Nonreactive (NONREACTIVE) 02/22/19 07:40 HIV 1&2 Antibody Screen Negative 02/22/19 07:40 HIV P24 Antigen Negative 02/22/19 07:40 lab noted low wbc - Treatment Hospital Course: Detox Protocol Followed, Responded well Patient has Accepted a [facility] Referral [facility] - Medication Discharge Medications: Ambulatory Orders Melatonin 10 mg PO HS 02/21/19 - Diagnosis (1) Alcohol dependence with uncomplicated withdrawal Status: Acute (2) Eczema Status: Chronic Qualifiers: Eczema type: other Qualified Code(s): L30.8 - Other specified dermatitis (3) Nicotine dependence Status: Acute Qualifiers: Nicotine product type: cigarettes Substance use status: in withdrawal Qualified Code(s): F17.213 - Nicotine dependence, cigarettes, with withdrawal (4) Substance induced mood disorder Status: Suspected - AMA Did Patient Leave Against Medical Advice: Yes
[2019-02-26] MEDS ORDERED: chlordiazePOXIDE HCL 10 MG CAPSULE PO ONE (05:00)
== END 2019-02-25 08:01 | disposition left against medical advice (07) | DRG 770 ==
LOC: YASAS 14:32 → Y3N 19:28
PROVIDERS: ADMIT Allergy & Immunology; ATTEND Allergy & Immunology
PROC: HZ2ZZZZ Detoxification Services for Substance Abuse Treatment (ICD-10-PCS; principal; 2019-02-21)
DX: F10.230 Alcohol dependence with withdrawal, uncomplicated (principal); F14.20 Cocaine dependence, uncomplicated; F17.213 Nicotine dependence, cigarettes, with withdrawal; F19.24 Other psychoactive substance dependence with psychoactive substance-induced mood disorder; F19.282 Other psychoactive substance dependence with psychoactive substance-induced sleep disorder; N40.0 Benign prostatic hyperplasia without lower urinary tract symptoms; L30.8 Other specified dermatitis; M17.0 Bilateral primary osteoarthritis of knee; R00.0 Tachycardia, unspecified; Z63.4 Disappearance and death of family member
CPT/HCPCS: 36415; 80053; 85027; 86593; 87389

== ENCOUNTER 2019-05-06 15:07 | Inpatient (IN) | payer OTHER ==
[2019-05-06 15:50] VITALS: BMI 24.3
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
[2019-05-06] MEDS ORDERED: BISMUTH SUBSALICYLATE 524 MG/30 ML UD PO PRN (18:19)
[2019-05-06] MEDS ORDERED: MAGNESIUM CITRATE 300 ML BOTTLE PO PRN (18:19)
[2019-05-06] MEDS ORDERED: MAG HYDROX/AL HYDROX/SIMETH 30 ML UNIT-DOSE CUP PO PRN (18:19)
[2019-05-06] MEDS ORDERED: MAGNESIUM HYDROX 2400MG/30ML ORAL SUSPENSION 30 ML CUP PO PRN (18:19)
[2019-05-06] MEDS ORDERED: ACETAMINOPHEN 325 MG TABLET (FP) PO PRN ×2 (18:19)
[2019-05-06] MEDS ORDERED: MENTHOL/PHENOL 1 EACH UD MM PRN (18:19)
[2019-05-06] MEDS ORDERED: IBUPROFEN 400 MG TABLET (FP) PO PRN (18:19)
[2019-05-06] MEDS ORDERED: METOPROLOL TARTRATE 25 MG TABLET (FP) PO ONE (19:08)
[2019-05-06] MEDS: chlordiazePOXIDE HCL 10 MG CAPSULE PO PRN (19:18)
[2019-05-06] MEDS: ASPIRIN 81 MG CHEWABLE TABLETS PO SCH (19:20)
[2019-05-06] MEDS: chlordiazePOXIDE HCL 25 MG CAPSULE PO SCH (22:43)
[2019-05-06] MEDS: TAMSULOSIN HCL 0.4 MG CAP PO SCH (22:43)
[2019-05-06] MEDS: THIAMINE HCL 100 MG TABLET (FP) PO SCH (22:43)
[2019-05-07] MEDS: chlordiazePOXIDE HCL 25 MG CAPSULE PO SCH ×3 (06:23→21:43)
[2019-05-07 10:23] LABS: HEMATOCRIT 35.9 % (35.4-49); HEMOGLOBIN 11.8 GM/dL (11.7-16.9); MCH 31.1 pg (25.7-33.7); MCHC 32.9 g/dl (32.0-35.9); MEAN CELL VOLUME 94.5 fl (80-96); MEAN PLT VOLUME 7.9 fl (7.5-11.1); PLATELET COUNT 334 K/MM3 (134-434); RDW 13.1 % (11.9-15.9); WHITE BLOOD COUNT 4.7 K/mm3 (4.0-10.0)
[2019-05-07] MEDS: PRENATAL VITAMINS W/ FOLIC ACID TABLET (FP) PO SCH (10:24)
[2019-05-07] MEDS: ASPIRIN 81 MG CHEWABLE TABLETS PO SCH (10:24)
[2019-05-07] MEDS: TAMSULOSIN HCL 0.4 MG CAP PO SCH (10:24)
[2019-05-07 10:41] LABS: ALBUMIN 2.6 g/dl (3.4-5.0); BILIRUBIN,TOTAL 0.3 mg/dL (0.2-1); BLOOD UREA NITROGEN 8.7 mg/dL (7-18); CALCIUM 8.7 mg/dL (8.5-10.1); CREATININE 0.9 mg/dL (0.55-1.3); POTASSIUM 4.1 mmol/L (3.5-5.1)
--- NOTE | 2019-05-07 11:48 | CONSULT ---
[facility] Psychiatric Consult - Data Date of interview: 05/07/19 Admission source: [facility] Identifying data: Driver'S License Examiner approached patient for psychiatric consultation. Patient stated, " I do not have to see you." Psychiatric consultation refused. Please reorder psychiatric consultation if requested by patient.
--- NOTE | 2019-05-07 13:33 | PN ---
S CIWA - CIWA Score Nausea/Vomitin-Mild Nausea/No Vomiting Muscle Tremors: 2 Anxiety: 2 Agitation: 0-Normal Activity Paroxysmal Sweats: 2 Orientation: 0-Oriented Tacttile Disturbances: 1-Very Mild Itch/Numbness Auditory Disturbances: 0-None Visual Disturbances: 1-Very Mild Sensitivity Headache: 3-Moderate CIWA-Ar Total Score: 12 BHS Progress Note (SOAP) Subjective: Patient is a 58 yo male with hx of alcohol dependence on librium detox protocol c/o of headache, interrupted sleep, chills , denies changes in vision or numbness/ tingling. Objective: Vital Signs Temperature 98.7 F 05/07/19 09:05 Pulse Rate 112 H 05/07/19 09:05 Respiratory Rate 18 05/07/19 09:05 Blood Pressure 114/78 05/07/19 09:05 O2 Sat by Pulse Oximetry (%) Laboratory Last Values WBC 4.7 K/mm3 (4.0-10.0) 05/07/19 08:00 RBC 3.80 M/mm3 (4.00-5.60) L 05/07/19 08:00 Hgb 11.8 GM/dL (11.7-16.9) 05/07/19 08:00 Hct 35.9 % (35.4-49) 05/07/19 08:00 MCV 94.5 fl (80-96) 05/07/19 08:00 MCH 31.1 pg (25.7-33.7) 05/07/19 08:00 MCHC 32.9 g/dl (32.0-35.9) 05/07/19 08:00 RDW 13.1 % (11.9-15.9) 05/07/19 08:00 Plt Count 334 K/MM3 (134-434) 05/07/19 08:00 MPV 7.9 fl (7.5-11.1) 05/07/19 08:00 Sodium 141 mmol/L (136-145) 05/07/19 08:00 Potassium 4.1 mmol/L (3.5-5.1) 05/07/19 08:00 Chloride 108 mmol/L (98-107) H 05/07/19 08:00 Carbon Dioxide 27 mmol/L (21-32) 05/07/19 08:00 Anion Gap 6 MMOL/L (8-16) L 05/07/19 08:00 BUN 8.7 mg/dL (7-18) 05/07/19 08:00 Creatinine 0.9 mg/dL (0.55-1.3) 05/07/19 08:00 Est GFR (CKD-EPI)AfAm 107.22 05/07/19 08:00 Est GFR (CKD-EPI)NonAf 92.51 05/07/19 08:00 Random Glucose 175 mg/dL (74-106) H 05/07/19 08:00 Calcium 8.7 mg/dL (8.5-10.1) 05/07/19 08:00 Total Bilirubin 0.3 mg/dL (0.2-1) 05/07/19 08:00 AST 13 U/L (15-37) L 05/07/19 08:00 ALT 19 U/L (13-61) 05/07/19 08:00 Alkaline Phosphatase 69 U/L (45-117) 05/07/19 08:00 Total Protein 6.0 g/dl (6.4-8.2) L 05/07/19 08:00 Albumin 2.6 g/dl (3.4-5.0) L 05/07/19 08:00 05/07/19 13:31 Assessment: Patient is Aox3 no acute distress EENT WNL Full ROM no gait disturbance ambulating in the unit withdrawal sx Plan: increase fluids continue detox continue to monitor
--- NOTE | 2019-05-07 15:15 | EKG ---
Test Reason : Blood Pressure : / mmHG Vent. Rate : 100 BPM Atrial Rate : 100 BPM P-R Int : 152 ms QRS Dur : 072 ms QT Int : 278 ms P-R-T Axes : 073 032 032 degrees QTc Int : 358 ms NORMAL SINUS RHYTHM NONSPECIFIC ST AND T WAVE ABNORMALITY ABNORMAL ECG WHEN COMPARED WITH ECG OF 03-JAN-2018 20:36, NO SIGNIFICANT CHANGE WAS FOUND Confirmed by CYDNEY HAYWARD MD ([id number]) on 05/07/2019 3:14:51 PM Referred By: Confirmed By:CYDNEY HAYWARD MD
[2019-05-07] MEDS: chlordiazePOXIDE HCL 10 MG CAPSULE PO PRN (19:39)
[2019-05-07] MEDS: THIAMINE HCL 100 MG TABLET (FP) PO SCH (21:43)
[2019-05-07] MEDS: MELATONIN 5 MG TABLETS PO PRN (21:44)
[2019-05-07] MEDS: hydrOXYzine PAMOATE 25 MG CAPSULE (FP) PO PRN (21:46)
[2019-05-08] MEDS: chlordiazePOXIDE 5 MG CAPSULE PO SCH ×3 (05:44→22:28)
[2019-05-08] MEDS: TAMSULOSIN HCL 0.4 MG CAP PO SCH (10:22)
[2019-05-08] MEDS: ASPIRIN 81 MG CHEWABLE TABLETS PO SCH (10:22)
[2019-05-08] MEDS: PRENATAL VITAMINS W/ FOLIC ACID TABLET (FP) PO SCH (10:23)
--- NOTE | 2019-05-08 12:36 | PN ---
S CIWA - CIWA Score Nausea/Vomitin-No Nausea/No Vomiting Muscle Tremors: 2 Anxiety: 3 Agitation: 1-Slight > Activity Paroxysmal Sweats: 2 Orientation: 0-Oriented Tacttile Disturbances: 1-Very Mild Itch/Numbness Auditory Disturbances: 0-None Visual Disturbances: 0-None Headache: 0-None Present CIWA-Ar Total Score: 9 BHS Progress Note (SOAP) Subjective: Patient c/o of interrupted sleep, anxious, body aches Objective: 05/08/19 15:11 Vital Signs Temperature 96.6 F L 05/08/19 09:05 Pulse Rate 99 H 05/08/19 09:05 Respiratory Rate 16 05/08/19 09:05 Blood Pressure 100/64 05/08/19 09:05 O2 Sat by Pulse Oximetry (%) Laboratory Last Values WBC 4.7 K/mm3 (4.0-10.0) 05/07/19 08:00 RBC 3.80 M/mm3 (4.00-5.60) L 05/07/19 08:00 Hgb 11.8 GM/dL (11.7-16.9) 05/07/19 08:00 Hct 35.9 % (35.4-49) 05/07/19 08:00 MCV 94.5 fl (80-96) 05/07/19 08:00 MCH 31.1 pg (25.7-33.7) 05/07/19 08:00 MCHC 32.9 g/dl (32.0-35.9) 05/07/19 08:00 RDW 13.1 % (11.9-15.9) 05/07/19 08:00 Plt Count 334 K/MM3 (134-434) 05/07/19 08:00 MPV 7.9 fl (7.5-11.1) 05/07/19 08:00 Sodium 141 mmol/L (136-145) 05/07/19 08:00 Potassium 4.1 mmol/L (3.5-5.1) 05/07/19 08:00 Chloride 108 mmol/L (98-107) H 05/07/19 08:00 Carbon Dioxide 27 mmol/L (21-32) 05/07/19 08:00 Anion Gap 6 MMOL/L (8-16) L 05/07/19 08:00 BUN 8.7 mg/dL (7-18) 05/07/19 08:00 Creatinine 0.9 mg/dL (0.55-1.3) 05/07/19 08:00 Est GFR (CKD-EPI)AfAm 107.22 05/07/19 08:00 Est GFR (CKD-EPI)NonAf 92.51 05/07/19 08:00 Random Glucose 175 mg/dL (74-106) H 05/07/19 08:00 Calcium 8.7 mg/dL (8.5-10.1) 05/07/19 08:00 Total Bilirubin 0.3 mg/dL (0.2-1) 05/07/19 08:00 AST 13 U/L (15-37) L 05/07/19 08:00 ALT 19 U/L (13-61) 05/07/19 08:00 Alkaline Phosphatase 69 U/L (45-117) 05/07/19 08:00 Total Protein 6.0 g/dl (6.4-8.2) L 05/07/19 08:00 Albumin 2.6 g/dl (3.4-5.0) L 05/07/19 08:00 RPR Titer Nonreactive (NONREACTIVE) 05/07/19 08:00 Assessment: 05/08/19 15:11 Aox3 no acute distress EENT WNL, poor dentition Full ROM ambulating in the unit withdrawal sx Plan: increase fluids continue detox continue to monitor
[2019-05-08] MEDS: chlordiazePOXIDE HCL 10 MG CAPSULE PO PRN (19:21)
[2019-05-08] MEDS: THIAMINE HCL 100 MG TABLET (FP) PO SCH (22:28)
[2019-05-09] MEDS ORDERED: chlordiazePOXIDE HCL 10 MG CAPSULE PO PRN
[2019-05-09] MEDS: chlordiazePOXIDE HCL 10 MG CAPSULE PO SCH ×3 (07:37→23:27)
[2019-05-09] MEDS: TAMSULOSIN HCL 0.4 MG CAP PO SCH (10:11)
[2019-05-09] MEDS: ASPIRIN 81 MG CHEWABLE TABLETS PO SCH (10:11)
[2019-05-09] MEDS: PRENATAL VITAMINS W/ FOLIC ACID TABLET (FP) PO SCH (10:11)
--- NOTE | 2019-05-09 12:31 | PN ---
[facility] CIWA - CIWA Score Nausea/Vomitin-No Nausea/No Vomiting Muscle Tremors: None Anxiety: 2 Agitation: 0-Normal Activity Paroxysmal Sweats: 2 Orientation: 0-Oriented Tacttile Disturbances: 0-None Auditory Disturbances: 0-None Visual Disturbances: 0-None Headache: 0-None Present CIWA-Ar Total Score: 4 S Progress Note (SOAP) Subjective: c/o mild withdrawal symptoms. Objective: 05/09/19 12:30 Vital Signs 05/09/19 05/09/19 06:26 09:15 Temperature 97.0 F L 96.7 F L Pulse Rate 79 103 H Respiratory 18 16 Rate Blood Pressure 102/70 113/82 Laboratory Last Values WBC 4.7 K/mm3 (4.0-10.0) 05/07/19 08:00 RBC 3.80 M/mm3 (4.00-5.60) L 05/07/19 08:00 Hgb 11.8 GM/dL (11.7-16.9) 05/07/19 08:00 Hct 35.9 % (35.4-49) 05/07/19 08:00 MCV 94.5 fl (80-96) 05/07/19 08:00 MCH 31.1 pg (25.7-33.7) 05/07/19 08:00 MCHC 32.9 g/dl (32.0-35.9) 05/07/19 08:00 RDW 13.1 % (11.9-15.9) 05/07/19 08:00 Plt Count 334 K/MM3 (134-434) 05/07/19 08:00 MPV 7.9 fl (7.5-11.1) 05/07/19 08:00 Sodium 141 mmol/L (136-145) 05/07/19 08:00 Potassium 4.1 mmol/L (3.5-5.1) 05/07/19 08:00 Chloride 108 mmol/L (98-107) H 05/07/19 08:00 Carbon Dioxide 27 mmol/L (21-32) 05/07/19 08:00 Anion Gap 6 MMOL/L (8-16) L 05/07/19 08:00 BUN 8.7 mg/dL (7-18) 05/07/19 08:00 Creatinine 0.9 mg/dL (0.55-1.3) 05/07/19 08:00 Est GFR (CKD-EPI)AfAm 107.22 05/07/19 08:00 Est GFR (CKD-EPI)NonAf 92.51 05/07/19 08:00 Random Glucose 175 mg/dL (74-106) H 05/07/19 08:00 Calcium 8.7 mg/dL (8.5-10.1) 05/07/19 08:00 Total Bilirubin 0.3 mg/dL (0.2-1) 05/07/19 08:00 AST 13 U/L (15-37) L 05/07/19 08:00 ALT 19 U/L (13-61) 05/07/19 08:00 Alkaline Phosphatase 69 U/L (45-117) 05/07/19 08:00 Total Protein 6.0 g/dl (6.4-8.2) L 05/07/19 08:00 Albumin 2.6 g/dl (3.4-5.0) L 05/07/19 08:00 RPR Titer Nonreactive (NONREACTIVE) 05/07/19 08:00 Labs noted. Assessment: 05/09/19 12:30 AOX3, in no acute respiratory distress. Full ROM, ambulating in the unit. Mild Withdrawal symptoms. For d/c tomorrow. Plan: continue detox. D/C in AM.
[2019-05-09] MEDS: hydrOXYzine PAMOATE 25 MG CAPSULE (FP) PO PRN (19:19)
[2019-05-09] MEDS: MELATONIN 5 MG TABLETS PO PRN (22:56)
[2019-05-09] MEDS: THIAMINE HCL 100 MG TABLET (FP) PO SCH (22:56)
[2019-05-10] MEDS ORDERED: chlordiazePOXIDE HCL 10 MG CAPSULE PO ONE (05:00)
[2019-05-10 06:47] VITALS: BP 96/66; PULSE 84; TEMP 97.3
--- NOTE | 2019-05-10 13:57 | DS ---
[facility] Detox Discharge Summary Admission Date: 05/06/19 Discharge Date: 05/10/19 - History Present History: Alcohol Dependence Additional Comments: 58 years old male admitted on 05/06/19 for alcohol withdrawal sx management treated with librium detox regimen patient has completed librium regimen and tolerated well alert orietned x 3 cardiac s1s2 regular rate rhythme respiratory clear lungs bilaterally on auscultation skin warm and dry - Physical Exam Results Vital Signs: Vital Signs Temperature 97.3 F L 05/10/19 06:46 Pulse Rate 84 05/10/19 06:46 Respiratory Rate 18 05/10/19 06:46 Blood Pressure 96/66 05/10/19 06:46 O2 Sat by Pulse Oximetry (%) Pertinent Admission Physical Exam Findings: alcohol withdrawal Laboratory Last Values WBC 4.7 K/mm3 (4.0-10.0) 05/07/19 08:00 RBC 3.80 M/mm3 (4.00-5.60) L 05/07/19 08:00 Hgb 11.8 GM/dL (11.7-16.9) 05/07/19 08:00 Hct 35.9 % (35.4-49) 05/07/19 08:00 MCV 94.5 fl (80-96) 05/07/19 08:00 MCH 31.1 pg (25.7-33.7) 05/07/19 08:00 MCHC 32.9 g/dl (32.0-35.9) 05/07/19 08:00 RDW 13.1 % (11.9-15.9) 05/07/19 08:00 Plt Count 334 K/MM3 (134-434) 05/07/19 08:00 MPV 7.9 fl (7.5-11.1) 05/07/19 08:00 Sodium 141 mmol/L (136-145) 05/07/19 08:00 Potassium 4.1 mmol/L (3.5-5.1) 05/07/19 08:00 Chloride 108 mmol/L (98-107) H 05/07/19 08:00 Carbon Dioxide 27 mmol/L (21-32) 05/07/19 08:00 Anion Gap 6 MMOL/L (8-16) L 05/07/19 08:00 BUN 8.7 mg/dL (7-18) 05/07/19 08:00 Creatinine 0.9 mg/dL (0.55-1.3) 05/07/19 08:00 Est GFR (CKD-EPI)AfAm 107.22 05/07/19 08:00 Est GFR (CKD-EPI)NonAf 92.51 05/07/19 08:00 Random Glucose 175 mg/dL (74-106) H 05/07/19 08:00 Calcium 8.7 mg/dL (8.5-10.1) 05/07/19 08:00 Total Bilirubin 0.3 mg/dL (0.2-1) 05/07/19 08:00 AST 13 U/L (15-37) L 05/07/19 08:00 ALT 19 U/L (13-61) 05/07/19 08:00 Alkaline Phosphatase 69 U/L (45-117) 05/07/19 08:00 Total Protein 6.0 g/dl (6.4-8.2) L 05/07/19 08:00 Albumin 2.6 g/dl (3.4-5.0) L 05/07/19 08:00 RPR Titer Nonreactive (NONREACTIVE) 05/07/19 08:00 lab noted - Treatment Hospital Course: Detox Protocol Followed, Detoxed Safely, Responded well, Discharged Condition Good, Rehab Referral Accepted Patient has Accepted a Rehab Referral to: [facility] - Medication Discharge Medications: Ambulatory Orders Tamsulosin HCl [Flomax -] 0.4 mg PO DAILY 05/06/19 - Diagnosis (1) Nicotine dependence Status: Acute Qualifiers: Nicotine product type: cigarettes Substance use status: in withdrawal Qualified Code(s): F17.213 - Nicotine dependence, cigarettes, with withdrawal (2) Alcohol dependence with uncomplicated withdrawal Status: Acute (3) Benign prostate hyperplasia Status: Chronic Qualifiers: Lower urinary tract symptom presence: symptoms present (4) Substance induced mood disorder Status: Suspected - AMA Did Patient Leave Against Medical Advice: No CIWA Score - CIWA Score Nausea/Vomitin-No Nausea/No Vomiting Muscle Tremors: None Anxiety: 1-Mildly Anxious Agitation: 0-Normal Activity Paroxysmal Sweats: 1-Minimal Palms Moist Orientation: 0-Oriented Tacttile Disturbances: 0-None Auditory Disturbances: 0-None Visual Disturbances: 0-None Headache: 0-None Present CIWA-Ar Total Score: 2
--- NOTE | 2019-06-03 11:36 | BHS.RME ---
Substance Use & Tx History - Substance Use History Alcohol Substance amount: 2.5 6 packs daily, 16 ounces, 5 nips Frequency of use: Daily Substance route: Oral Date of Last Use: 06/02/19 Cocaine (Crack) Substance amount: $220-500. Frequency of use: Daily Substance route: Smoking Date of Last Use: 06/02/19 Nicotine Substance amount: 2 cigs Frequency of use: Daily Substance route: Smoking Date of Last Use: 06/03/19 Physical/Psych/Mental Status - Behavior Eye Contact: Normal - Cooperativeness Cooperativeness: Cooperative - Thinking Thought Processes: Tight - Physical Health Problems Is patient presently having any pain?: Yes (headache since the am) Does patient presently have any injuries (include location): No Does patient currently have a fever: No CIWA Nausea/Vomitin-Int. Nausea w/Dry Heave Muscle Tremors: 4-Moderate,w/Arms Extend Anxiety: 2 Agitation: 2 Paroxysmal Sweats: 1-Minimal Palms Moist Orientation: 0-Oriented Tacttile Disturbances: 0-None Auditory Disturbances: 0-None Visual Disturbances: 0-None Headache: 5-Severe CIWA-Ar Total Score: 18
== END 2019-05-10 08:40 | disposition home or self-care (01) | DRG 774 ==
LOC: YASAS 15:07 → Y3N 18:49
PROVIDERS: ADMIT Allergy & Immunology; ATTEND Allergy & Immunology
PROC: HZ2ZZZZ Detoxification Services for Substance Abuse Treatment (ICD-10-PCS; principal; 2019-05-06)
DX: F10.230 Alcohol dependence with withdrawal, uncomplicated (principal); F14.20 Cocaine dependence, uncomplicated; F17.213 Nicotine dependence, cigarettes, with withdrawal; F19.24 Other psychoactive substance dependence with psychoactive substance-induced mood disorder; N40.0 Benign prostatic hyperplasia without lower urinary tract symptoms; R00.0 Tachycardia, unspecified
CPT/HCPCS: 36415; 80053; 85027; 86593; 93005; 93010

== ENCOUNTER 2019-06-03 11:20 | Inpatient (IN) | payer OTHER ==
[2019-06-03 11:57] VITALS: BMI 22.8
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
[2019-06-03] MEDS ORDERED: MENTHOL/PHENOL 1 EACH UD MM PRN (12:27)
[2019-06-03] MEDS ORDERED: ACETAMINOPHEN 325 MG TABLET (FP) PO PRN (12:27)
[2019-06-03] MEDS ORDERED: hydrOXYzine PAMOATE 25 MG CAPSULE (FP) PO PRN (12:27)
[2019-06-03] MEDS ORDERED: MELATONIN 5 MG TABLETS PO PRN (12:27)
[2019-06-03] MEDS ORDERED: BISMUTH SUBSALICYLATE 524 MG/30 ML UD PO PRN (12:27)
[2019-06-03] MEDS ORDERED: IBUPROFEN 400 MG TABLET (FP) PO PRN (12:27)
[2019-06-03] MEDS ORDERED: METHOCARBAMOL 500 MG TABLET PO PRN (12:27)
[2019-06-03] MEDS ORDERED: MAG HYDROX/AL HYDROX/SIMETH 30 ML UNIT-DOSE CUP PO PRN (12:27)
[2019-06-03] MEDS ORDERED: MAGNESIUM HYDROX 2400MG/30ML ORAL SUSPENSION 30 ML CUP PO PRN (12:27)
[2019-06-03] MEDS ORDERED: NICOTINE POLACRILEX 2 MG GUM BUC PRN (12:27)
[2019-06-03] MEDS ORDERED: MAGNESIUM CITRATE 300 ML BOTTLE PO PRN (12:27)
--- NOTE | 2019-06-03 13:50 | BHS.RME ---
Substance Use & Tx History - Substance Use History Alcohol Substance amount: 2.5 6 packs of 16 oz beer and 5 nips Frequency of use: Daily Substance route: Oral Date of Last Use: 06/02/19 Cocaine (Crack) Substance amount: $200-300. Frequency of use: Daily Substance route: Smoking Date of Last Use: 06/02/19 Nicotine Substance amount: 2 cigs Frequency of use: Daily Substance route: Smoking Date of Last Use: 06/03/19 Physical/Psych/Mental Status - Cooperativeness Cooperativeness: Cooperative - Thinking Thought Processes: Tight - Physical Health Problems Is patient presently having any pain?: Yes (frontal headache, he states he gets when in withdrawal) Does patient presently have any injuries (include location): No Does patient currently have a fever: No Is patient : No CIWA Nausea/Vomitin-Mild Nausea/No Vomiting Muscle Tremors: 4-Moderate,w/Arms Extend Anxiety: 3 Agitation: 1-Slight > Activity Paroxysmal Sweats: 4-Forehead w/Sweat Beads Orientation: 0-Oriented Tacttile Disturbances: 0-None Auditory Disturbances: 0-None Visual Disturbances: 0-None Headache: 5-Severe CIWA-Ar Total Score: 18
[2019-06-03] MEDS: chlordiazePOXIDE HCL 25 MG CAPSULE PO PRN (13:54)
[2019-06-03] MEDS: TAMSULOSIN HCL 0.4 MG CAP PO SCH (13:54)
[2019-06-03 14:37] LABS: HEMATOCRIT 40.4 % (35.4-49); HEMOGLOBIN 13.4 GM/dL (11.7-16.9); MCH 31.1 pg (25.7-33.7); MCHC 33.2 g/dl (32.0-35.9); MEAN CELL VOLUME 93.6 fl (80-96); MEAN PLT VOLUME 8.1 fl (7.5-11.1); PLATELET COUNT 246 K/MM3 (134-434); RBC 4.32 M/mm3 (4.00-5.60); RDW 13.3 % (11.9-15.9); WHITE BLOOD COUNT 10.7 K/mm3 (4.0-10.0)
[2019-06-03 14:51] LABS: ALBUMIN 3.5 g/dl (3.4-5.0); BILIRUBIN,TOTAL 0.7 mg/dL (0.2-1); CALCIUM 9.1 mg/dL (8.5-10.1); CREATININE 1.1 mg/dL (0.55-1.3); POTASSIUM 4.2 mmol/L (3.5-5.1); TOT PROT 7.7 g/dl (6.4-8.2)
[2019-06-03] MEDS: chlordiazePOXIDE HCL 25 MG CAPSULE PO SCH ×2 (17:44→22:26)
[2019-06-03] MEDS: ACETAMINOPHEN 325 MG TABLET (FP) PO PRN (20:49)
[2019-06-03] MEDS ORDERED: AZITHROMYCIN 250 MG TABLET PO ONE (21:10)
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
[2019-06-03] MEDS: THIAMINE HCL 100 MG TABLET (FP) PO SCH (22:26)
[2019-06-04] MEDS: chlordiazePOXIDE HCL 25 MG CAPSULE PO SCH ×4 (05:39→22:52)
--- NOTE | 2019-06-04 10:31 | PN ---
S CIWA - CIWA Score Nausea/Vomitin Muscle Tremors: 2 Anxiety: 2 Agitation: 2 Paroxysmal Sweats: No Perspiration Orientation: 0-Oriented Tacttile Disturbances: 1-Very Mild Itch/Numbness Auditory Disturbances: 0-None Visual Disturbances: 0-None Headache: 2-Mild CIWA-Ar Total Score: 11 S Progress Note (SOAP) Subjective: alert,irritable,anxious,interrupted sleep,no fever this morning,on zithromax for pharyngitis Objective: 06/04/19 10:30 Vital Signs Temperature 99.0 F 06/04/19 08:45 Pulse Rate 117 H 06/04/19 08:45 Respiratory Rate 19 06/04/19 08:45 Blood Pressure 98/58 L 06/04/19 08:45 O2 Sat by Pulse Oximetry (%) Laboratory Last Values WBC 10.7 K/mm3 (4.0-10.0) H 06/03/19 12:30 RBC 4.32 M/mm3 (4.00-5.60) 06/03/19 12:30 Hgb 13.4 GM/dL (11.7-16.9) 06/03/19 12:30 Hct 40.4 % (35.4-49) 06/03/19 12:30 MCV 93.6 fl (80-96) 06/03/19 12:30 MCH 31.1 pg (25.7-33.7) 06/03/19 12:30 MCHC 33.2 g/dl (32.0-35.9) 06/03/19 12:30 RDW 13.3 % (11.9-15.9) 06/03/19 12:30 Plt Count 246 K/MM3 (134-434) D 06/03/19 12:30 MPV 8.1 fl (7.5-11.1) 06/03/19 12:30 Sodium 133 mmol/L (136-145) L 06/03/19 12:30 Potassium 4.2 mmol/L (3.5-5.1) 06/03/19 12:30 Chloride 100 mmol/L (98-107) 06/03/19 12:30 Carbon Dioxide 28 mmol/L (21-32) 06/03/19 12:30 Anion Gap 5 MMOL/L (8-16) L 06/03/19 12:30 BUN 9.0 mg/dL (7-18) 06/03/19 12:30 Creatinine 1.1 mg/dL (0.55-1.3) 06/03/19 12:30 Est GFR (CKD-EPI)AfAm 84.12 06/03/19 12:30 Est GFR (CKD-EPI)NonAf 72.58 06/03/19 12:30 Random Glucose 126 mg/dL (74-106) H 06/03/19 12:30 Calcium 9.1 mg/dL (8.5-10.1) 06/03/19 12:30 Total Bilirubin 0.7 mg/dL (0.2-1) 06/03/19 12:30 AST 20 U/L (15-37) 06/03/19 12:30 ALT 36 U/L (13-61) 06/03/19 12:30 Alkaline Phosphatase 77 U/L (45-117) 06/03/19 12:30 Total Protein 7.7 g/dl (6.4-8.2) 06/03/19 12:30 Albumin 3.5 g/dl (3.4-5.0) 06/03/19 12:30 Assessment: 06/04/19 10:30 withdrawal symptom Plan: continue detox librium regimen,fluid,continue zithromax,fasting glucose in am
[2019-06-04] MEDS: PRENATAL VITAMINS W/ FOLIC ACID TABLET (FP) PO SCH (10:36)
[2019-06-04] MEDS: TAMSULOSIN HCL 0.4 MG CAP PO SCH (10:36)
[2019-06-04] MEDS: AZITHROMYCIN 250 MG TABLET PO SCH (10:36)
[2019-06-04] MEDS: chlordiazePOXIDE HCL 25 MG CAPSULE PO PRN (11:32)
[2019-06-04] MEDS: ACETAMINOPHEN 325 MG TABLET (FP) PO PRN (14:25)
[2019-06-04] MEDS: THIAMINE HCL 100 MG TABLET (FP) PO SCH (22:52)
[2019-06-05] MEDS: chlordiazePOXIDE HCL 25 MG CAPSULE PO SCH ×4 (05:22→22:02)
--- NOTE | 2019-06-05 09:06 | PN ---
S CIWA - CIWA Score Nausea/Vomitin-Mild Nausea/No Vomiting Muscle Tremors: 2 Anxiety: 1-Mildly Anxious Agitation: 1-Slight > Activity Paroxysmal Sweats: No Perspiration Orientation: 0-Oriented Tacttile Disturbances: 1-Very Mild Itch/Numbness Auditory Disturbances: 0-None Visual Disturbances: 0-None Headache: 1-Very Mild CIWA-Ar Total Score: 7 BHS Progress Note (SOAP) Subjective: alert,irritable,anxious,interrupted sleep,no fever today Objective: 06/05/19 09:04 Vital Signs Temperature 98.1 F 06/05/19 06:23 Pulse Rate 63 06/05/19 06:23 Respiratory Rate 16 06/05/19 06:23 Blood Pressure 126/69 06/05/19 06:23 O2 Sat by Pulse Oximetry (%) Assessment: 06/05/19 09:04 withdrawal symptom Plan: continue detox librium regimen,continue zithromax 250 mgs po daily,encourage oral fluid,fasting glucose pending
[2019-06-05] MEDS: AZITHROMYCIN 250 MG TABLET PO SCH (10:01)
[2019-06-05] MEDS: PRENATAL VITAMINS W/ FOLIC ACID TABLET (FP) PO SCH (10:01)
[2019-06-05] MEDS: TAMSULOSIN HCL 0.4 MG CAP PO SCH ×2 (10:01→22:01)
[2019-06-05] MEDS: THIAMINE HCL 100 MG TABLET (FP) PO SCH (21:57)
[2019-06-06] MEDS: chlordiazePOXIDE HCL 10 MG CAPSULE PO PRN ×2 (03:09→10:29)
[2019-06-06] MEDS: chlordiazePOXIDE HCL 10 MG CAPSULE PO SCH ×2 (05:44→11:00)
[2019-06-06 06:07] VITALS: TEMP 97.9
[2019-06-06 09:08] VITALS: BP 108/71; PULSE 95
[2019-06-06] MEDS: AZITHROMYCIN 250 MG TABLET PO SCH (10:28)
[2019-06-06] MEDS: TAMSULOSIN HCL 0.4 MG CAP PO SCH (10:29)
[2019-06-06] MEDS: PRENATAL VITAMINS W/ FOLIC ACID TABLET (FP) PO SCH (10:29)
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
[2019-06-07] MEDS ORDERED: chlordiazePOXIDE HCL 10 MG CAPSULE PO SCH (05:00)
[2019-06-08] MEDS ORDERED: chlordiazePOXIDE HCL 10 MG CAPSULE PO ONE (05:00)
== END 2019-06-06 11:28 | disposition left against medical advice (07) | DRG 770 ==
LOC: YASAS 11:20 → Y6N 12:56
PROVIDERS: ADMIT Allergy & Immunology; ATTEND Allergy & Immunology
PROC: HZ2ZZZZ Detoxification Services for Substance Abuse Treatment (ICD-10-PCS; principal; 2019-06-03)
DX: F10.230 Alcohol dependence with withdrawal, uncomplicated (principal); F14.20 Cocaine dependence, uncomplicated; F17.210 Nicotine dependence, cigarettes, uncomplicated; F31.9 Bipolar disorder, unspecified; F90.9 Attention-deficit hyperactivity disorder, unspecified type; N40.0 Benign prostatic hyperplasia without lower urinary tract symptoms; L30.8 Other specified dermatitis; J02.9 Acute pharyngitis, unspecified; Z87.828 Personal history of other (healed) physical injury and trauma; Z59.0 Homelessness
CPT/HCPCS: 36415; 80053; 82947; 85027; 86593

== ENCOUNTER 2019-06-29 11:44 | Inpatient (IN) | payer OTHER ==
--- NOTE | 2019-06-29 11:58 | BHS.RME ---
Substance Use & Tx History - Substance Use History Alcohol Substance amount: 5 nips, 2x6 pack of 16 ounce beer Frequency of use: Daily Substance route: Oral Date of Last Use: 06/22/19 Cocaine (Crack) Substance amount: 2 grams Frequency of use: Less than 3 times per week Substance route: Smoking Date of Last Use: 06/22/19 Physical/Psych/Mental Status - Behavior General Behavior: Decreased activity Eye Contact: Normal - Cooperativeness Cooperativeness: Cooperative - Thinking Thought Processes: Tight Thought content: Future oriented - Physical Health Problems Is patient presently having any pain?: No Does patient presently have any injuries (include location): No Does patient currently have a fever: No CIWA Nausea/Vomitin-No Nausea/No Vomiting Muscle Tremors: None Anxiety: 1-Mildly Anxious Agitation: 0-Normal Activity Paroxysmal Sweats: No Perspiration Orientation: 0-Oriented Tacttile Disturbances: 0-None Auditory Disturbances: 0-None Visual Disturbances: 0-None Headache: 0-None Present CIWA-Ar Total Score: 1
[2019-06-29 12:29] VITALS: BP 114/81; PULSE 92; TEMP 97.7; BMI 23.7
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
[2019-06-29] MEDS ORDERED: MAGNESIUM CITRATE 300 ML BOTTLE PO PRN (12:59)
[2019-06-29] MEDS ORDERED: IBUPROFEN 400 MG TABLET (FP) PO PRN (12:59)
[2019-06-29] MEDS ORDERED: P-EPHED 60MG/TRIPROLIDI 2.5MG TABLET PO PRN (12:59)
[2019-06-29] MEDS ORDERED: MAG HYDROX/AL HYDROX/SIMETH 30 ML UNIT-DOSE CUP PO PRN (12:59)
[2019-06-29] MEDS ORDERED: NICOTINE POLACRILEX 2 MG GUM BC PRN (12:59)
[2019-06-29] MEDS ORDERED: LOPERAMIDE HCL 2 MG CAPSULE PO PRN (12:59)
[2019-06-29] MEDS ORDERED: guaiFENesin 200 MG/10 ML 10 ML UNIT-DOSE CUPS PO PRN (12:59)
[2019-06-29] MEDS ORDERED: ACETAMINOPHEN 325 MG TABLET (FP) PO PRN (12:59)
[2019-06-29] MEDS ORDERED: MAGNESIUM HYDROX 2400MG/30ML ORAL SUSPENSION 30 ML CUP PO PRN (12:59)
[2019-06-29] MEDS ORDERED: PRENATAL VITAMINS W/ FOLIC ACID TABLET (FP) PO SCH (13:00)
[2019-06-29] MEDS ORDERED: TAMSULOSIN HCL 0.4 MG CAP PO SCH (14:00)
[2019-06-29] MEDS ORDERED: NICOTINE 7 MG/24 HOURS TOPICAL PATCH TD SCH (14:00)
[2019-06-29] MEDS: hydrOXYzine PAMOATE 25 MG CAPSULE (FP) PO SCH ×3 (15:19→22:19)
[2019-06-29 17:39] LABS: HEMATOCRIT 39.8 % (35.4-49); MCH 31.1 pg (25.7-33.7); MCHC 32.6 g/dl (32.0-35.9); MEAN CELL VOLUME 95.4 fl (80-96); MEAN PLT VOLUME 8.2 fl (7.5-11.1); PLATELET COUNT 246 K/MM3 (134-434); RBC 4.17 M/mm3 (4.00-5.60); RDW 14.1 % (11.9-15.9); WHITE BLOOD COUNT 4.6 K/mm3 (4.0-10.0)
[2019-06-29 17:50] LABS: ALBUMIN 3.4 g/dl (3.4-5.0); BILIRUBIN,TOTAL 0.2 mg/dL (0.2-1); BLOOD UREA NITROGEN 9.2 mg/dL (7-18); CALCIUM 8.7 mg/dL (8.5-10.1); CREATININE 0.8 mg/dL (0.55-1.3); TOT PROT 7.2 g/dl (6.4-8.2)
[2019-06-29] MEDS ORDERED: MELATONIN 5 MG TABLETS PO SCH (22:00)
[2019-06-29] MEDS ORDERED: THIAMINE HCL 100 MG TABLET (FP) PO SCH (22:00)
--- NOTE | 2019-06-30 06:57 | DS ---
[facility] Detox Discharge Summary Admission Date: 06/29/19 Discharge Date: 06/30/19 - History Additional Comments: Patient is leaving against medical advice with no explanation given . He was admitted to detox for the period 06/03/2019 - 06/06/2019 and had left AMA from detox. He came back for Rehab. admission and wants to leave. Risks and consequences odf his action reinforced. Patient verbalized understanding of instruction and left. Pertinent Past History: Alcohol dependence BPH opioid dependence sedative dependence arthritis back pain bipolar disorder Non compliance - Physical Exam Results Vital Signs: Vital Signs Temperature 97.7 F 06/29/19 12:25 Pulse Rate 92 H 06/29/19 12:25 Respiratory Rate 20 06/30/19 00:30 Blood Pressure 114/81 06/29/19 12:25 O2 Sat by Pulse Oximetry (%) Laboratory Last Values WBC 4.6 K/mm3 (4.0-10.0) 06/29/19 13:05 RBC 4.17 M/mm3 (4.00-5.60) 06/29/19 13:05 Hgb 13.0 GM/dL (11.7-16.9) 06/29/19 13:05 Hct 39.8 % (35.4-49) 06/29/19 13:05 MCV 95.4 fl (80-96) 06/29/19 13:05 MCH 31.1 pg (25.7-33.7) 06/29/19 13:05 MCHC 32.6 g/dl (32.0-35.9) 06/29/19 13:05 RDW 14.1 % (11.9-15.9) 06/29/19 13:05 Plt Count 246 K/MM3 (134-434) 06/29/19 13:05 MPV 8.2 fl (7.5-11.1) 06/29/19 13:05 Sodium 141 mmol/L (136-145) 06/29/19 13:05 Potassium 4.0 mmol/L (3.5-5.1) 06/29/19 13:05 Chloride 104 mmol/L (98-107) 06/29/19 13:05 Carbon Dioxide 31 mmol/L (21-32) 06/29/19 13:05 Anion Gap 6 MMOL/L (8-16) L 06/29/19 13:05 BUN 9.2 mg/dL (7-18) 06/29/19 13:05 Creatinine 0.8 mg/dL (0.55-1.3) 06/29/19 13:05 Est GFR (CKD-EPI)AfAm 112.53 06/29/19 13:05 Est GFR (CKD-EPI)NonAf 97.10 06/29/19 13:05 Random Glucose 78 mg/dL (74-106) 06/29/19 13:05 Calcium 8.7 mg/dL (8.5-10.1) 06/29/19 13:05 Total Bilirubin 0.2 mg/dL (0.2-1) 06/29/19 13:05 AST 21 U/L (15-37) 06/29/19 13:05 ALT 36 U/L (13-61) 06/29/19 13:05 Alkaline Phosphatase 71 U/L (45-117) 06/29/19 13:05 Total Protein 7.2 g/dl (6.4-8.2) 06/29/19 13:05 Albumin 3.4 g/dl (3.4-5.0) 06/29/19 13:05 Pertinent Admission Physical Exam Findings: ALCOHOL WITHDRAWAL SYMPTOMS - Medication Discharge Medications: Ambulatory Orders Tamsulosin HCl [Flomax -] 0.4 mg PO DAILY 05/06/19 - Diagnosis (1) Nicotine dependence Current Visit: Yes Status: Chronic Qualifiers: Nicotine product type: cigarettes Substance use status: in withdrawal Qualified Code(s): F17.213 - Nicotine dependence, cigarettes, with withdrawal (2) Benign prostate hyperplasia Current Visit: Yes Status: Chronic Qualifiers: Lower urinary tract symptom presence: symptoms present (3) Cocaine dependence Current Visit: Yes Status: Chronic Qualifiers: Substance use status: uncomplicated Qualified Code(s): F14.20 - Cocaine dependence, uncomplicated (4) Arthritis of both knees Current Visit: No Status: Chronic (5) Back pain Current Visit: Yes Status: Chronic Qualifiers: Back pain location: low back pain Sciatica presence: without sciatica (6) Primary osteoarthritis of right knee Current Visit: Yes Status: Chronic (7) Sedative, hypnotic or anxiolytic abuse Current Visit: Yes Status: Chronic (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
--- NOTE | 2019-06-30 07:04 | DS ---
[facility] Rehab Discharge Summary - [facility] Rehab Discharge Summary Admission Date: 06/29/19 Discharge Date: 06/30/19 - History Additional Comments: Patient is leaving against medical advice with no explanation given . He was admitted to detox for the period 06/03/2019 - 06/06/2019 and had left AMA from detox. He came back for Rehab. admission and wants to leave. Risks and consequences odf his action reinforced. Patient verbalized understanding of instruction and left. Pertinent Past History: Alcohol dependence BPH opioid dependence sedative dependence arthritis back pain bipolar disorder Non compliance - Discharge Physical Exam Vital Signs: Vital Signs Temperature 97.7 F 06/29/19 12:25 Pulse Rate 92 H 06/29/19 12:25 Respiratory Rate 20 06/30/19 00:30 Blood Pressure 114/81 06/29/19 12:25 O2 Sat by Pulse Oximetry (%) Laboratory Last Values WBC 4.6 K/mm3 (4.0-10.0) 06/29/19 13:05 RBC 4.17 M/mm3 (4.00-5.60) 06/29/19 13:05 Hgb 13.0 GM/dL (11.7-16.9) 06/29/19 13:05 Hct 39.8 % (35.4-49) 06/29/19 13:05 MCV 95.4 fl (80-96) 06/29/19 13:05 MCH 31.1 pg (25.7-33.7) 06/29/19 13:05 MCHC 32.6 g/dl (32.0-35.9) 06/29/19 13:05 RDW 14.1 % (11.9-15.9) 06/29/19 13:05 Plt Count 246 K/MM3 (134-434) 06/29/19 13:05 MPV 8.2 fl (7.5-11.1) 06/29/19 13:05 Sodium 141 mmol/L (136-145) 06/29/19 13:05 Potassium 4.0 mmol/L (3.5-5.1) 06/29/19 13:05 Chloride 104 mmol/L (98-107) 06/29/19 13:05 Carbon Dioxide 31 mmol/L (21-32) 06/29/19 13:05 Anion Gap 6 MMOL/L (8-16) L 06/29/19 13:05 BUN 9.2 mg/dL (7-18) 06/29/19 13:05 Creatinine 0.8 mg/dL (0.55-1.3) 06/29/19 13:05 Est GFR (CKD-EPI)AfAm 112.53 06/29/19 13:05 Est GFR (CKD-EPI)NonAf 97.10 06/29/19 13:05 Random Glucose 78 mg/dL (74-106) 06/29/19 13:05 Calcium 8.7 mg/dL (8.5-10.1) 06/29/19 13:05 Total Bilirubin 0.2 mg/dL (0.2-1) 06/29/19 13:05 AST 21 U/L (15-37) 06/29/19 13:05 ALT 36 U/L (13-61) 06/29/19 13:05 Alkaline Phosphatase 71 U/L (45-117) 06/29/19 13:05 Total Protein 7.2 g/dl (6.4-8.2) 06/29/19 13:05 Albumin 3.4 g/dl (3.4-5.0) 06/29/19 13:05 Pertinent Admission Physical Exam Findings: Alcohol withdrawal symptoms - Medication Discharge Medications: Ambulatory Orders Tamsulosin HCl [Flomax -] 0.4 mg PO DAILY 05/06/19 - Medication-Assisted Treatment (MAT) Medication-Assisted Treatment (MAT): No - Discharge Instructions Diet, activity, other medical instructions: Diet: Regular Activity: As tolerated Other medical instructions: Follow up with PCP as scheduled - Diagnosis (1) Nicotine dependence Current Visit: Yes Status: Chronic Qualifiers: Nicotine product type: cigarettes Substance use status: in withdrawal Qualified Code(s): F17.213 - Nicotine dependence, cigarettes, with withdrawal (2) Benign prostate hyperplasia Current Visit: Yes Status: Chronic Qualifiers: Lower urinary tract symptom presence: symptoms present (3) Cocaine dependence Current Visit: Yes Status: Chronic Qualifiers: Substance use status: uncomplicated Qualified Code(s): F14.20 - Cocaine dependence, uncomplicated (4) Arthritis of both knees Current Visit: No Status: Chronic (5) Back pain Current Visit: Yes Status: Chronic Qualifiers: Back pain location: low back pain Sciatica presence: without sciatica (6) Primary osteoarthritis of right knee Current Visit: Yes Status: Chronic (7) Sedative, hypnotic or anxiolytic abuse Current Visit: Yes Status: Chronic (8) Substance-induced sleep disorder Current Visit: Yes Status: Chronic (9) Substance induced mood disorder Current Visit: Yes Status: Suspected (10) Alcohol dependence with uncomplicated withdrawal Current Visit: Yes Status: Chronic (11) Eczema Current Visit: Yes Status: Chronic Qualifiers: Eczema type: other Qualified Code(s): L30.8 - Other specified dermatitis (12) Non-compliance Current Visit: Yes Status: Chronic - Follow-up Referral Minutes to complete discharge: 30 - AMA Did Patient Leave Against Medical Advice: Yes
== END 2019-06-30 05:45 | disposition home or self-care (01) | DRG 772 ==
LOC: YASAS 11:44 → Y5N 13:01
PROVIDERS: ADMIT Allergy & Immunology; ATTEND Allergy & Immunology
PROC: HZ42ZZZ Group Counseling for Substance Abuse Treatment, Cognitive-Behavioral (ICD-10-PCS; principal; 2019-06-29)
DX: F10.20 Alcohol dependence, uncomplicated (principal); F11.20 Opioid dependence, uncomplicated; F14.20 Cocaine dependence, uncomplicated; F13.10 Sedative, hypnotic or anxiolytic abuse, uncomplicated; F17.210 Nicotine dependence, cigarettes, uncomplicated; F19.282 Other psychoactive substance dependence with psychoactive substance-induced sleep disorder; F19.24 Other psychoactive substance dependence with psychoactive substance-induced mood disorder; F31.9 Bipolar disorder, unspecified; F43.10 Post-traumatic stress disorder, unspecified; M17.0 Bilateral primary osteoarthritis of knee; M54.5 Low back pain; G89.29 Other chronic pain; L30.8 Other specified dermatitis; R63.4 Abnormal weight loss; Z91.19 Patient's noncompliance with other medical treatment and regimen
CPT/HCPCS: 36415; 80053; 85027; 86593

== ENCOUNTER 2019-10-16 08:30 | Inpatient (IN) | payer OTHER ==
--- NOTE | 2019-10-16 09:24 | BHS.RME ---
Substance Use & Tx History - Substance Use History Alcohol Substance amount: 2 x6-pk /d & 5 nips Frequency of use: Daily Substance route: Oral Cocaine- Powder Substance amount: 300$ Frequency of use: Daily Substance route: Inhalation (ex: sniffing or snorting) Methamphetamine Substance amount: occasional Frequency of use: Less than 5 times a year Substance route: Smoking Xanax Substance amount: every other week Frequency of use: Once a month Substance route: Oral - Last Treatment Date of last treatment: june 2019 Where was last treatment: Detox Physical/Psych/Mental Status - Behavior Eye Contact: Normal - Cooperativeness Cooperativeness: Cooperative - Thinking Thought Processes: Logical Thought content: Future oriented - Physical Health Problems Is patient presently having any pain?: No Does patient presently have any injuries (include location): Yes Does patient currently have a fever: No CIWA Nausea/Vomitin Muscle Tremors: 2 Anxiety: 4-Mod. Anxious/Guarded Agitation: 4-Moderately Restless Paroxysmal Sweats: 2 Orientation: 0-Oriented Tacttile Disturbances: 1-Very Mild Itch/Numbness Auditory Disturbances: 0-None Visual Disturbances: 2-Mild Sensitivity Headache: 3-Moderate CIWA-Ar Total Score: 20
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
[2019-10-16] MEDS ORDERED: TAMSULOSIN HCL 0.4 MG CAP PO SCH ×2 (10:00→22:00)
[2019-10-16 10:03] VITALS: BMI 23.4
[2019-10-16] MEDS ORDERED: MAGNESIUM CITRATE 300 ML BOTTLE PO PRN (10:07)
[2019-10-16] MEDS ORDERED: hydrOXYzine PAMOATE 25 MG CAPSULE (FP) PO PRN (10:07)
[2019-10-16] MEDS ORDERED: METHOCARBAMOL 500 MG TABLET PO PRN (10:07)
[2019-10-16] MEDS ORDERED: MAG HYDROX/AL HYDROX/SIMETH 30 ML UNIT-DOSE CUP PO PRN (10:07)
[2019-10-16] MEDS ORDERED: ACETAMINOPHEN 325 MG TABLET (FP) PO PRN ×2 (10:07)
[2019-10-16] MEDS ORDERED: MENTHOL/PHENOL 1 EACH UD MM PRN (10:07)
[2019-10-16] MEDS ORDERED: MELATONIN 5 MG TABLETS PO PRN (10:07)
[2019-10-16] MEDS ORDERED: MAGNESIUM HYDROX 2400MG/30ML ORAL SUSPENSION 30 ML CUP PO PRN (10:07)
[2019-10-16] MEDS ORDERED: BISMUTH SUBSALICYLATE 524 MG/30 ML UD PO PRN (10:07)
[2019-10-16] MEDS ORDERED: IBUPROFEN 400 MG TABLET (FP) PO PRN (10:07)
[2019-10-16] MEDS ORDERED: chlordiazePOXIDE HCL 25 MG CAPSULE PO ONE (10:15)
--- NOTE | 2019-10-16 11:18 | PN ---
S CIWA - CIWA Score Nausea/Vomitin Muscle Tremors: 2 Anxiety: 3 Agitation: 3 Paroxysmal Sweats: 1-Minimal Palms Moist Orientation: 0-Oriented Tacttile Disturbances: 1-Very Mild Itch/Numbness Auditory Disturbances: 0-None Visual Disturbances: 0-None Headache: 2-Mild CIWA-Ar Total Score: 14 BHS Progress Note (SOAP) Subjective: alert,irritable,anxious,interrupted sleep,tremor,pain in the body and back Objective: 10/16/19 11:17 Vital Signs Temperature 97.2 F L 10/16/19 09:59 Pulse Rate 108 H 10/16/19 09:59 Respiratory Rate 18 10/16/19 09:59 Blood Pressure 109/78 10/16/19 09:59 O2 Sat by Pulse Oximetry (%) 97 10/16/19 10:23 10/16/19 11:17 labs pending Assessment: 10/16/19 11:17 withdrawal symptom Plan: continue detox librium regimen
[2019-10-16 11:45] LABS: HEMATOCRIT 41.1 % (35.4-49); HEMOGLOBIN 13.6 GM/dL (11.7-16.9); MCH 31.4 pg (25.7-33.7); MEAN CELL VOLUME 94.9 fl (80-96); MEAN PLT VOLUME 7.7 fl (7.5-11.1); PLATELET COUNT 298 K/MM3 (134-434); RBC 4.33 M/mm3 (4.00-5.60); RDW 13.7 % (11.9-15.9)
[2019-10-16 12:15] LABS: ALBUMIN 4.1 g/dl (3.4-5.0); BILIRUBIN,TOTAL 0.9 mg/dL (0.2-1); CALCIUM 9.3 mg/dL (8.5-10.1); CREATININE 1.3 mg/dL (0.55-1.3); POTASSIUM 3.6 mmol/L (3.5-5.1)
[2019-10-16] MEDS: chlordiazePOXIDE HCL 25 MG CAPSULE PO SCH ×2 (13:12→21:09)
--- NOTE | 2019-10-16 14:41 | PN ---
S Progress Note Note: Patient was approached at bedside. He look very sedated and told typewriter assembly and parts inspector:" I'm very tired and cannot talk to you now".
--- NOTE | 2019-10-16 16:40 | PN ---
BHS Progress Note Note: Psychiatric nurse practitioner note: Rn Examiner attempted to see typewriter operator automatic concerning psychiatric consultation but patient was asleep and difficult to awaken.
[2019-10-16] MEDS: THIAMINE HCL 100 MG TABLET (FP) PO SCH (21:11)
[2019-10-17] MEDS: chlordiazePOXIDE HCL 25 MG CAPSULE PO SCH ×3 (06:49→23:32)
[2019-10-17] MEDS: chlordiazePOXIDE HCL 10 MG CAPSULE PO PRN ×2 (07:43→19:46)
[2019-10-17] MEDS: PRENATAL VITAMINS W/ FOLIC ACID TABLET (FP) PO SCH (10:33)
--- NOTE | 2019-10-17 13:43 | CONSULT ---
[facility] Psychiatric Consult - Data Date of interview: 10/17/19 Admission source: [facility] Identifying data: Composition Board Press Operator came to [address] [place] [address] to conduct psychiatric evaluation as requested by medical providers. Patient is approached at bedside. Mr Espinoza is found resting comfortably in bed. Awake, alert and fully oriented. Patient declines psychiatric interview. " I am fine. I don't need to talk to psychiatrists. Thank you." Composition Board Press Operator informed nurse on duty of patient's refusal.
--- NOTE | 2019-10-17 14:31 | PN ---
[facility] CIWA - CIWA Score Nausea/Vomitin-No Nausea/No Vomiting Muscle Tremors: None Anxiety: 4-Mod. Anxious/Guarded Agitation: 3 Paroxysmal Sweats: No Perspiration Orientation: 0-Oriented Tacttile Disturbances: 0-None Auditory Disturbances: 0-None Visual Disturbances: 2-Mild Sensitivity Headache: 0-None Present CIWA-Ar Total Score: 9 S Progress Note (SOAP) Subjective: Anxious, Restless, Interrupted Sleep. Objective: Patient A & O X 3, Observed Ambulating on Detox Unit Unassisted. In No Acute Distress. 10/17/19 15:04 Vital Signs Temperature 98.9 F 10/17/19 13:20 Pulse Rate 88 10/17/19 13:20 Respiratory Rate 18 10/17/19 13:20 Blood Pressure 107/78 10/17/19 13:20 O2 Sat by Pulse Oximetry (%) 99 10/17/19 13:20 Laboratory Tests 10/16/19 10/16/19 10/16/19 10:10 10:10 10:10 WBC 4.0 RBC 4.33 Hgb 13.6 Hct 41.1 MCV 94.9 MCH 31.4 MCHC 33.0 RDW 13.7 Plt Count 298 D MPV 7.7 Sodium 141 Potassium 3.6 Chloride 104 Carbon Dioxide 28 Anion Gap 9 BUN 11.0 Creatinine 1.3 Est GFR (CKD-EPI)AfAm 68.25 Est GFR (CKD-EPI)NonAf 58.89 Random Glucose 144 H Calcium 9.3 Total Bilirubin 0.9 AST 28 ALT 31 Alkaline Phosphatase 70 Total Protein 8.0 Albumin 4.1 Syphilis Serology Non-reactive Lab Results Noted. Assessment: 10/17/19 15:05 WITHDRAWAL SYMPTOMS. HYPERGLYCEMIA. 10/17/19 15:05 Plan: Continue Detox. Increase Daily Oral Water Intake. Fasting Glucose Level ordered for Tomorrow AM for elevated Random Glucose Level noted on Detox Admission laboratory assessment. At time of Detox admission Assessment, Patient reported that he takes 0.8 mg of Flomax every night on outpatient basis. 0.4 mg HS ordered at time of Admission assessment. However, as per Mara Gupta RN Patient brought bottle of Home Medication Flomax, 0.4 mg, with him at time of Detox Admission that indicates "Take 2 capsules at Night" on Pharmacy label on bottle. Dose of Flomax changed to 0.8 mg (ER form) HS.
[2019-10-17] MEDS: TAMSULOSIN HCL 0.4 MG CAP PO SCH (22:43)
[2019-10-17] MEDS: THIAMINE HCL 100 MG TABLET (FP) PO SCH (22:44)
[2019-10-18] MEDS: chlordiazePOXIDE 5 MG CAPSULE PO SCH ×3 (06:20→22:17)
[2019-10-18] MEDS: PRENATAL VITAMINS W/ FOLIC ACID TABLET (FP) PO SCH (10:43)
--- NOTE | 2019-10-18 12:16 | PN ---
[facility] CIWA - CIWA Score Nausea/Vomitin-No Nausea/No Vomiting Muscle Tremors: 2 Anxiety: 3 Agitation: 2 Paroxysmal Sweats: 1-Minimal Palms Moist Orientation: 0-Oriented Tacttile Disturbances: 0-None Auditory Disturbances: 0-None Visual Disturbances: 2-Mild Sensitivity Headache: 0-None Present CIWA-Ar Total Score: 10 S Progress Note (SOAP) Subjective: Complaints of sweats, shakes, anxiety and light sensitivity. Objective: 10/18/19 12:15 Vital Signs 10/18/19 10/18/19 05:30 08:40 Temperature 97.8 F 98.7 F Pulse Rate 77 93 H Respiratory 20 16 Rate Blood Pressure 91/62 107/68 O2 Sat by Pulse 98 Oximetry (%) Laboratory Last Values WBC 4.0 K/mm3 (4.0-10.0) 10/16/19 10:10 RBC 4.33 M/mm3 (4.00-5.60) 10/16/19 10:10 Hgb 13.6 GM/dL (11.7-16.9) 10/16/19 10:10 Hct 41.1 % (35.4-49) 10/16/19 10:10 MCV 94.9 fl (80-96) 10/16/19 10:10 MCH 31.4 pg (25.7-33.7) 10/16/19 10:10 MCHC 33.0 g/dl (32.0-35.9) 10/16/19 10:10 RDW 13.7 % (11.9-15.9) 10/16/19 10:10 Plt Count 298 K/MM3 (134-434) D 10/16/19 10:10 MPV 7.7 fl (7.5-11.1) 10/16/19 10:10 Sodium 141 mmol/L (136-145) 10/16/19 10:10 Potassium 3.6 mmol/L (3.5-5.1) 10/16/19 10:10 Chloride 104 mmol/L (98-107) 10/16/19 10:10 Carbon Dioxide 28 mmol/L (21-32) 10/16/19 10:10 Anion Gap 9 MMOL/L (8-16) 10/16/19 10:10 BUN 11.0 mg/dL (7-18) 10/16/19 10:10 Creatinine 1.3 mg/dL (0.55-1.3) 10/16/19 10:10 Est GFR (CKD-EPI)AfAm 68.25 10/16/19 10:10 Est GFR (CKD-EPI)NonAf 58.89 10/16/19 10:10 Random Glucose 144 mg/dL (74-106) H 10/16/19 10:10 Calcium 9.3 mg/dL (8.5-10.1) 10/16/19 10:10 Total Bilirubin 0.9 mg/dL (0.2-1) 10/16/19 10:10 AST 28 U/L (15-37) 10/16/19 10:10 ALT 31 U/L (13-61) 10/16/19 10:10 Alkaline Phosphatase 70 U/L (45-117) 10/16/19 10:10 Total Protein 8.0 g/dl (6.4-8.2) 10/16/19 10:10 Albumin 4.1 g/dl (3.4-5.0) 10/16/19 10:10 Syphilis Serology Non-reactive (NONREACTIVE) 10/16/19 10:10 COVID-19 (VALENTINO) Not detected (Not Detected) 10/16/19 10:15 Labs reviewed. Assessment: 10/18/19 12:15 Alert and oriented x3, in no acute respiratory distress Full ROM, skin warm to touch, ambulatory on unit without assistance. Mild withdrawal symptoms. Plan: Continue detox protocol.
[2019-10-18] MEDS: chlordiazePOXIDE HCL 10 MG CAPSULE PO PRN (19:02)
[2019-10-18] MEDS: TAMSULOSIN HCL 0.4 MG CAP PO SCH (22:17)
[2019-10-18] MEDS: THIAMINE HCL 100 MG TABLET (FP) PO SCH (22:17)
[2019-10-19] MEDS ORDERED: chlordiazePOXIDE HCL 10 MG CAPSULE PO PRN
[2019-10-19] MEDS ORDERED: chlordiazePOXIDE HCL 10 MG CAPSULE PO SCH (05:00)
[2019-10-19 05:56] VITALS: BP 118/77; PULSE 62; TEMP 97.7
--- NOTE | 2019-10-19 09:08 | PN ---
BHS COWS - Scale Resting Pulse: 0= [place] 80 or Below Sweatin= No chills or Flushing Restless Observation: 0= Sits Still Pupil Size: 0= Normal to Room Light Bone or Joint Aches: 0= None Runny Nose/ Eye Tearin= None GI Upset > 30mins: 0= None Tremor Observation of Outstretched Hands: 0= None Yawning Observation: 0= None Anxiety or Irritability: 1=Feels Anxious/Irritable Goose Flesh Skin: 0=Smooth Skin COWS Score: 1 BHS Progress Note (SOAP) Subjective: alert,no complaint Objective: 10/19/19 09:07 Vital Signs Temperature 97.7 F 10/19/19 05:23 Pulse Rate 62 10/19/19 05:23 Respiratory Rate 18 10/19/19 05:23 Blood Pressure 118/77 10/19/19 05:23 O2 Sat by Pulse Oximetry (%) 98 10/19/19 05:23 Assessment: 10/19/19 09:07 no withdrawal symptom Plan: patient is stable for discharge today,follow up with after care program as arrangement elevate
--- NOTE | 2019-10-19 09:09 | DS ---
[facility] Detox Discharge Summary Admission Date: 10/16/19 Discharge Date: 10/19/19 - History Present History: Alcohol Dependence - Physical Exam Results Vital Signs: Vital Signs Temperature 97.7 F 10/19/19 05:23 Pulse Rate 62 10/19/19 05:23 Respiratory Rate 18 10/19/19 05:23 Blood Pressure 118/77 10/19/19 05:23 O2 Sat by Pulse Oximetry (%) 98 10/19/19 05:23 - Medication Discharge Medications: Ambulatory Orders Tamsulosin HCl [Flomax -] 0.4 mg PO HS 05/06/19
--- NOTE | 2019-10-19 09:13 | PN ---
S Progress Note Note: please disregard the note at 0906 on this patient
--- NOTE | 2019-10-19 09:15 | PN ---
[facility] CIWA - CIWA Score Nausea/Vomitin-No Nausea/No Vomiting Muscle Tremors: None Anxiety: 1-Mildly Anxious Agitation: 0-Normal Activity Paroxysmal Sweats: No Perspiration Orientation: 0-Oriented Tacttile Disturbances: 0-None Auditory Disturbances: 0-None Visual Disturbances: 0-None Headache: 0-None Present CIWA-Ar Total Score: 1 S Progress Note (SOAP) Subjective: alert,no complaint Objective: 10/19/19 09:13 Vital Signs Temperature 97.7 F 10/19/19 05:23 Pulse Rate 62 10/19/19 05:23 Respiratory Rate 18 10/19/19 05:23 Blood Pressure 118/77 10/19/19 05:23 O2 Sat by Pulse Oximetry (%) 98 10/19/19 05:23 Assessment: 10/19/19 09:13 no withdrawal symptom Plan: stable for discharge today,follow up with after care program as arrangement elevate
--- NOTE | 2019-10-19 09:20 | DS ---
[facility] Detox Discharge Summary Admission Date: 10/16/19 Discharge Date: 10/19/19 - History Present History: Alcohol Dependence Additional Comments: alert,oriented x 3 ambulation on the unit lung clear on auscultation bilaterally abdomen soft,no distension,no pain no withdrawal symptom stable for discharge today follow up with after care program as arrangement elevate total time of discharge 35 minutes Pertinent Past History: bph history of bipolar disorder - Physical Exam Results Vital Signs: Vital Signs Temperature 97.7 F 10/19/19 05:23 Pulse Rate 62 10/19/19 05:23 Respiratory Rate 18 10/19/19 05:23 Blood Pressure 118/77 10/19/19 05:23 O2 Sat by Pulse Oximetry (%) 98 10/19/19 05:23 Pertinent Admission Physical Exam Findings: Vital Signs Temperature 97.7 F 10/19/19 05:23 Pulse Rate 62 10/19/19 05:23 Respiratory Rate 18 10/19/19 05:23 Blood Pressure 118/77 10/19/19 05:23 O2 Sat by Pulse Oximetry (%) 98 10/19/19 05:23 withdrawal sign and symptom Laboratory Last Values WBC 4.0 K/mm3 (4.0-10.0) 10/16/19 10:10 RBC 4.33 M/mm3 (4.00-5.60) 10/16/19 10:10 Hgb 13.6 GM/dL (11.7-16.9) 10/16/19 10:10 Hct 41.1 % (35.4-49) 10/16/19 10:10 MCV 94.9 fl (80-96) 10/16/19 10:10 MCH 31.4 pg (25.7-33.7) 10/16/19 10:10 MCHC 33.0 g/dl (32.0-35.9) 10/16/19 10:10 RDW 13.7 % (11.9-15.9) 10/16/19 10:10 Plt Count 298 K/MM3 (134-434) D 10/16/19 10:10 MPV 7.7 fl (7.5-11.1) 10/16/19 10:10 Sodium 141 mmol/L (136-145) 10/16/19 10:10 Potassium 3.6 mmol/L (3.5-5.1) 10/16/19 10:10 Chloride 104 mmol/L (98-107) 10/16/19 10:10 Carbon Dioxide 28 mmol/L (21-32) 10/16/19 10:10 Anion Gap 9 MMOL/L (8-16) 10/16/19 10:10 BUN 11.0 mg/dL (7-18) 10/16/19 10:10 Creatinine 1.3 mg/dL (0.55-1.3) 10/16/19 10:10 Est GFR (CKD-EPI)AfAm 68.25 10/16/19 10:10 Est GFR (CKD-EPI)NonAf 58.89 10/16/19 10:10 Random Glucose 144 mg/dL (74-106) H 10/16/19 10:10 Calcium 9.3 mg/dL (8.5-10.1) 10/16/19 10:10 Total Bilirubin 0.9 mg/dL (0.2-1) 10/16/19 10:10 AST 28 U/L (15-37) 10/16/19 10:10 ALT 31 U/L (13-61) 10/16/19 10:10 Alkaline Phosphatase 70 U/L (45-117) 10/16/19 10:10 Total Protein 8.0 g/dl (6.4-8.2) 10/16/19 10:10 Albumin 4.1 g/dl (3.4-5.0) 10/16/19 10:10 Syphilis Serology Non-reactive (NONREACTIVE) 10/16/19 10:10 COVID-19 ([facility]ENTINO) Not detected (Not Detected) 10/16/19 10:15 - Treatment Hospital Course: Detox Protocol Followed, Detoxed Safely, Responded well, Discharged Condition Good, Rehab Referral Accepted Patient has Accepted a Rehab Referral to: elevate - Medication Discharge Medications: Ambulatory Orders Tamsulosin HCl [Flomax -] 0.4 mg PO HS 05/06/19 - Diagnosis (1) Alcohol dependence with uncomplicated withdrawal Current Visit: Yes Status: Chronic (2) BPH (benign prostatic hyperplasia) Current Visit: Yes Status: Acute (3) History of bipolar disorder Current Visit: Yes Status: Acute - AMA Did Patient Leave Against Medical Advice: No
[2019-10-20] MEDS ORDERED: chlordiazePOXIDE HCL 10 MG CAPSULE PO ONE (05:00)
== END 2019-10-19 09:10 | disposition home or self-care (01) | DRG 774 ==
LOC: YASAS 08:30 → Y6N 09:46
PROVIDERS: ADMIT Allergy & Immunology; ATTEND Allergy & Immunology
PROC: HZ2ZZZZ Detoxification Services for Substance Abuse Treatment (ICD-10-PCS; principal; 2019-10-16)
DX: F10.230 Alcohol dependence with withdrawal, uncomplicated (principal); F14.20 Cocaine dependence, uncomplicated; F13.10 Sedative, hypnotic or anxiolytic abuse, uncomplicated; F15.10 Other stimulant abuse, uncomplicated; F17.211 Nicotine dependence, cigarettes, in remission; F31.9 Bipolar disorder, unspecified; F43.10 Post-traumatic stress disorder, unspecified; N40.0 Benign prostatic hyperplasia without lower urinary tract symptoms; R73.9 Hyperglycemia, unspecified; Z87.828 Personal history of other (healed) physical injury and trauma; Z98.890 Other specified postprocedural states
CPT/HCPCS: 36415; 80053; 85027; 86780; U0003

== ENCOUNTER 2019-11-07 14:02 | Inpatient (IN) | payer OTHER ==
--- NOTE | 2019-11-07 14:42 | BHS.RME ---
Substance Use & Tx History - Last Treatment Date of last treatment: 06/16/19 Where was last treatment: Detox Physical/Psych/Mental Status - Behavior General Behavior: Increased activity (restlessness, agitation) Eye Contact: Normal Other Behaviors: Mannerisms - Cooperativeness Cooperativeness: Cooperative - Thinking Thought Processes: Goal Directed Thought content: Future oriented - Physical Health Problems Is patient presently having any pain?: No Does patient presently have any injuries (include location): No Does patient currently have a fever: No CIWA Nausea/Vomitin Muscle Tremors: 2 Anxiety: 2 Agitation: 2 Paroxysmal Sweats: 2 Orientation: 0-Oriented Tacttile Disturbances: 2-Mild Itch/Numbness/Burn Auditory Disturbances: 0-None Visual Disturbances: 1-Very Mild Sensitivity Headache: 3-Moderate CIWA-Ar Total Score: 17
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
[2019-11-07 14:55] VITALS: BMI 26.2
[2019-11-07] MEDS ORDERED: MAG HYDROX/AL HYDROX/SIMETH 30 ML UNIT-DOSE CUP PO PRN (15:02)
[2019-11-07] MEDS ORDERED: ONDANSETRON *ODT* 4 MG TABLET SL ONE (15:02)
[2019-11-07] MEDS ORDERED: ACETAMINOPHEN 325 MG TABLET (FP) PO PRN ×2 (15:02)
[2019-11-07] MEDS ORDERED: chlordiazePOXIDE HCL 25 MG CAPSULE PO ONE (15:02)
[2019-11-07] MEDS ORDERED: MAGNESIUM HYDROX 2400MG/30ML ORAL SUSPENSION 30 ML CUP PO PRN (15:02)
[2019-11-07] MEDS ORDERED: MAGNESIUM CITRATE 300 ML BOTTLE PO PRN (15:02)
[2019-11-07] MEDS ORDERED: MENTHOL/PHENOL 1 EACH UD MM PRN (15:02)
[2019-11-07] MEDS ORDERED: BISMUTH SUBSALICYLATE 524 MG/30 ML UD PO PRN (15:02)
[2019-11-07] MEDS ORDERED: chlordiazePOXIDE HCL 10 MG CAPSULE PO PRN (15:02)
[2019-11-07] MEDS ORDERED: METHOCARBAMOL 500 MG TABLET PO PRN (15:02)
[2019-11-07] MEDS ORDERED: IBUPROFEN 400 MG TABLET (FP) PO PRN (15:02)
[2019-11-07] MEDS: hydrOXYzine PAMOATE 25 MG CAPSULE (FP) PO PRN ×2 (15:42→22:42)
[2019-11-07] MEDS: MELATONIN 5 MG TABLETS PO SCH (22:41)
[2019-11-07] MEDS: TAMSULOSIN HCL 0.4 MG CAP PO SCH (22:42)
[2019-11-07] MEDS: chlordiazePOXIDE HCL 25 MG CAPSULE PO SCH (22:42)
[2019-11-07] MEDS: THIAMINE HCL 100 MG TABLET (FP) PO SCH (22:58)
[2019-11-08] MEDS: chlordiazePOXIDE HCL 25 MG CAPSULE PO SCH ×3 (07:24→22:32)
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
[2019-11-08 10:23] LABS: HEMATOCRIT 38.3 % (35.4-49); HEMOGLOBIN 12.6 GM/dL (11.7-16.9); MCH 31.3 pg (25.7-33.7); MCHC 32.8 g/dl (32.0-35.9); MEAN CELL VOLUME 95.5 fl (80-96); MEAN PLT VOLUME 8.4 fl (7.5-11.1); PLATELET COUNT 221 K/MM3 (134-434); RBC 4.01 M/mm3 (4.00-5.60); RDW 13.5 % (11.9-15.9)
[2019-11-08] MEDS: PRENATAL VITAMINS W/ FOLIC ACID TABLET (FP) PO SCH (10:25)
[2019-11-08 10:33] LABS: ALBUMIN 2.8 g/dl (3.4-5.0); BILIRUBIN,TOTAL 0.6 mg/dL (0.2-1); CALCIUM 8.5 mg/dL (8.5-10.1); CREATININE 0.9 mg/dL (0.55-1.3); POTASSIUM 3.6 mmol/L (3.5-5.1)
--- NOTE | 2019-11-08 16:15 | PN ---
S CIWA - CIWA Score Nausea/Vomitin-Mild Nausea/No Vomiting Muscle Tremors: 2 Anxiety: 3 Agitation: 3 Paroxysmal Sweats: 3 Orientation: 0-Oriented Tacttile Disturbances: 1-Very Mild Itch/Numbness Auditory Disturbances: 0-None Visual Disturbances: 0-None Headache: 0-None Present CIWA-Ar Total Score: 13 BHS Progress Note (SOAP) Subjective: Feels better, body sore, aching Objective: 11/08/19 16:13 Last Vital Signs Temp Pulse Resp BP Pulse Ox 97.5 F L 77 18 108/77 96 11/08/19 13:10 11/08/19 13:10 11/08/19 13:10 11/08/19 13:10 11/08/19 13:10 Laboratory Tests 11/08/19 11/08/19 11/08/19 06:45 06:45 06:45 WBC 3.0 L RBC 4.01 Hgb 12.6 Hct 38.3 MCV 95.5 MCH 31.3 MCHC 32.8 RDW 13.5 Plt Count 221 D MPV 8.4 Sodium 143 Potassium 3.6 Chloride 109 H Carbon Dioxide 27 Anion Gap 6 L BUN 11.0 Creatinine 0.9 Est GFR (CKD-EPI)AfAm 106.46 Est GFR (CKD-EPI)NonAf 91.86 Random Glucose 100 Calcium 8.5 Total Bilirubin 0.6 AST 16 ALT 22 Alkaline Phosphatase 49 Total Protein 6.0 L Albumin 2.8 L Syphilis Serology Non-reactive Labs reviewed: albumin low Assessment: 11/08/19 16:14 Withdrawal sxs Hypoalbuminemia noted Plan: Continue detox Encourage PO water intake Hypoalbuminemia: encourage diet
[2019-11-08] MEDS ORDERED: SUVOREXANT 10 MG TABLET PO PRN (22:00)
[2019-11-08] MEDS: THIAMINE HCL 100 MG TABLET (FP) PO SCH (22:29)
[2019-11-08] MEDS: TAMSULOSIN HCL 0.4 MG CAP PO SCH (22:29)
[2019-11-08] MEDS: hydrOXYzine PAMOATE 25 MG CAPSULE (FP) PO PRN (22:29)
[2019-11-08] MEDS: MELATONIN 5 MG TABLETS PO SCH (22:29)
[2019-11-09] MEDS: chlordiazePOXIDE 5 MG CAPSULE PO SCH ×3 (06:36→22:09)
[2019-11-09] MEDS ORDERED: ONDANSETRON *ODT* 4 MG TABLET SL PRN (09:38)
[2019-11-09] MEDS: PRENATAL VITAMINS W/ FOLIC ACID TABLET (FP) PO SCH (10:22)
--- NOTE | 2019-11-09 11:57 | PN ---
[facility] CIWA - CIWA Score Nausea/Vomitin-Mild Nausea/No Vomiting Muscle Tremors: 3 Anxiety: 4-Mod. Anxious/Guarded Agitation: 2 Paroxysmal Sweats: No Perspiration Orientation: 0-Oriented Tacttile Disturbances: 0-None Auditory Disturbances: 0-None Visual Disturbances: 0-None Headache: 2-Mild CIWA-Ar Total Score: 12 BHS Progress Note (SOAP) Subjective: pt c/o nausea, no vomiting anxiety sl tremors headache on/off Objective: 11/09/19 11:55 Vital Signs - 24 hr 11/08/19 11/08/19 11/08/19 13:10 17:29 20:45 Temperature 97.5 F L 99.6 F 98.0 F Pulse Rate 77 82 69 Respiratory 18 16 16 Rate Blood Pressure 108/77 107/71 110/73 O2 Sat by Pulse 96 95 Oximetry (%) 11/09/19 05:59 Temperature 97.7 F Pulse Rate 58 L Respiratory 16 Rate Blood Pressure 115/74 O2 Sat by Pulse 94 L Oximetry (%) Laboratory Tests 11/07/19 11/08/19 11/08/19 15:09 06:45 06:45 WBC 3.0 L RBC 4.01 Hgb 12.6 Hct 38.3 MCV 95.5 MCH 31.3 MCHC 32.8 RDW 13.5 Plt Count 221 D MPV 8.4 Sodium Potassium Chloride Carbon Dioxide Anion Gap BUN Creatinine Est GFR (CKD-EPI)AfAm Est GFR (CKD-EPI)NonAf Random Glucose Calcium Total Bilirubin AST ALT Alkaline Phosphatase Total Protein Albumin Syphilis Serology Non-reactive COVID-19 (VALENTINO) Not detected 11/08/19 06:45 WBC RBC Hgb Hct MCV MCH MCHC RDW Plt Count MPV Sodium 143 Potassium 3.6 Chloride 109 H Carbon Dioxide 27 Anion Gap 6 L BUN 11.0 Creatinine 0.9 Est GFR (CKD-EPI)AfAm 106.46 Est GFR (CKD-EPI)NonAf 91.86 Random Glucose 100 Calcium 8.5 Total Bilirubin 0.6 AST 16 ALT 22 Alkaline Phosphatase 49 Total Protein 6.0 L Albumin 2.8 L Syphilis Serology COVID-19 (VALENTINO) Assessment: 11/09/19 11:55 withdrawal sx Plan: cont detox increase po fluids as tolerated maintain safety zofran odt prn as directed for n/v Tylenol prn for h/a
[2019-11-09] MEDS: hydrOXYzine PAMOATE 25 MG CAPSULE (FP) PO PRN ×2 (14:39→22:08)
[2019-11-09] MEDS: TAMSULOSIN HCL 0.4 MG CAP PO SCH (22:08)
[2019-11-09] MEDS: THIAMINE HCL 100 MG TABLET (FP) PO SCH (22:08)
[2019-11-09] MEDS: MELATONIN 5 MG TABLETS PO SCH (22:09)
[2019-11-10] MEDS ORDERED: chlordiazePOXIDE HCL 10 MG CAPSULE PO PRN
[2019-11-10] MEDS ORDERED: chlordiazePOXIDE HCL 10 MG CAPSULE PO SCH (05:00)
[2019-11-10 06:22] VITALS: BP 105/73; PULSE 65; TEMP 97.5
--- NOTE | 2019-11-10 10:34 | PN ---
S CIWA - CIWA Score Nausea/Vomitin-No Nausea/No Vomiting Muscle Tremors: None Anxiety: 4-Mod. Anxious/Guarded Agitation: 4-Moderately Restless Paroxysmal Sweats: No Perspiration Orientation: 0-Oriented Tacttile Disturbances: 0-None Auditory Disturbances: 0-None Visual Disturbances: 0-None Headache: 0-None Present CIWA-Ar Total Score: 8 BHS Progress Note (SOAP) Subjective: Pt reports detox proceeding well. Denies n/v today. Pt seen by the pay phone making outside call. Steady gait. Objective: 11/10/19 10:38 Vital Signs - 24 hr 11/09/19 11/09/19 11/10/19 12:42 22:08 05:57 Temperature 97.8 F 97.5 F L Pulse Rate 81 87 65 Respiratory 16 18 Rate Blood Pressure 105/77 93/70 105/73 O2 Sat by Pulse 95 97 Oximetry (%) Laboratory Tests 11/07/19 11/08/19 11/08/19 15:09 06:45 06:45 WBC 3.0 L RBC 4.01 Hgb 12.6 Hct 38.3 MCV 95.5 MCH 31.3 MCHC 32.8 RDW 13.5 Plt Count 221 D MPV 8.4 Sodium Potassium Chloride Carbon Dioxide Anion Gap BUN Creatinine Est GFR (CKD-EPI)AfAm Est GFR (CKD-EPI)NonAf Random Glucose Calcium Total Bilirubin AST ALT Alkaline Phosphatase Total Protein Albumin Syphilis Serology Non-reactive COVID-19 (VALENTINO) Not detected 11/08/19 06:45 WBC RBC Hgb Hct MCV MCH MCHC RDW Plt Count MPV Sodium 143 Potassium 3.6 Chloride 109 H Carbon Dioxide 27 Anion Gap 6 L BUN 11.0 Creatinine 0.9 Est GFR (CKD-EPI)AfAm 106.46 Est GFR (CKD-EPI)NonAf 91.86 Random Glucose 100 Calcium 8.5 Total Bilirubin 0.6 AST 16 ALT 22 Alkaline Phosphatase 49 Total Protein 6.0 L Albumin 2.8 L Syphilis Serology COVID-19 (VALENTINO) Alert o x 3 nad oob ambulating with steady gait Assessment: 11/10/19 10:39 mild w/s medically stable Plan: increase po fluids maintain safety
[2019-11-10] MEDS: PRENATAL VITAMINS W/ FOLIC ACID TABLET (FP) PO SCH (10:45)
--- NOTE | 2019-11-10 15:09 | DS ---
[facility] Detox Discharge Summary Admission Date: 11/07/19 Discharge Date: 11/10/19 - History Present History: Alcohol Dependence, Cocaine Dependence, Sedative Dependence Additional Comments: Pt declined to continue with detox and refused to speak with this expert medical writer for evaluation and reason for wanting to leave treatment. Pt stated "i don't want to see anyone". wants to leave for personal reasons. Pertinent Past History: BPH Eczema Hx Osteoarthritis Arthritis both Knees Back Pain Left Inguinal Hernia Repair-2017 PTSD Hx Bipolar disorder - Physical Exam Results Vital Signs: Vital Signs Temperature 97.5 F L 11/10/19 05:57 Pulse Rate 65 11/10/19 05:57 Respiratory Rate 18 11/10/19 05:57 Blood Pressure 105/73 11/10/19 05:57 O2 Sat by Pulse Oximetry (%) 97 11/10/19 05:57 alert o x 3 nad oob ambulating with steady gait (Pt declined further P/E) Pertinent Admission Physical Exam Findings: Laboratory Tests 11/07/19 11/08/19 11/08/19 15:09 06:45 06:45 WBC 3.0 L RBC 4.01 Hgb 12.6 Hct 38.3 MCV 95.5 MCH 31.3 MCHC 32.8 RDW 13.5 Plt Count 221 D MPV 8.4 Sodium Potassium Chloride Carbon Dioxide Anion Gap BUN Creatinine Est GFR (CKD-EPI)AfAm Est GFR (CKD-EPI)NonAf Random Glucose Calcium Total Bilirubin AST ALT Alkaline Phosphatase Total Protein Albumin Syphilis Serology Non-reactive COVID-19 (VALENTINO) Not detected 11/08/19 06:45 WBC RBC Hgb Hct MCV MCH MCHC RDW Plt Count MPV Sodium 143 Potassium 3.6 Chloride 109 H Carbon Dioxide 27 Anion Gap 6 L BUN 11.0 Creatinine 0.9 Est GFR (CKD-EPI)AfAm 106.46 Est GFR (CKD-EPI)NonAf 91.86 Random Glucose 100 Calcium 8.5 Total Bilirubin 0.6 AST 16 ALT 22 Alkaline Phosphatase 49 Total Protein 6.0 L Albumin 2.8 L Syphilis Serology COVID-19 (VALENTINO) - Treatment Hospital Course: Discharged Condition Good Patient has Accepted a Rehab Referral to: Pt declined but encouraged to go to [facility]. - Medication Discharge Medications: Ambulatory Orders Tamsulosin HCl [Flomax -] 0.8 mg PO HS cap.er.24h 10/19/19 - Diagnosis (1) Benign prostate hyperplasia Status: Chronic Qualifiers: Lower urinary tract symptom presence: symptoms present (2) Eczema Status: Chronic Qualifiers: Eczema type: other Qualified Code(s): L30.8 - Other specified dermatitis (3) Alcohol dependence with uncomplicated withdrawal Status: Acute (4) Arthritis of both knees Status: Chronic (5) Non-compliance Status: Chronic (6) BPH (benign prostatic hyperplasia) Status: Chronic Qualifiers: Lower urinary tract symptom presence: symptoms absent Qualified Code(s): N40.0 - Benign prostatic hyperplasia without lower urinary tract symptoms (7) Nicotine dependence Status: Acute Qualifiers: Nicotine product type: cigarettes Substance use status: in withdrawal Qualified Code(s): F17.213 - Nicotine dependence, cigarettes, with withdrawal - AMA Did Patient Leave Against Medical Advice: Yes
[2019-11-11] MEDS ORDERED: chlordiazePOXIDE HCL 10 MG CAPSULE PO ONE (05:00)
== END 2019-11-10 10:55 | disposition left against medical advice (07) | DRG 770 ==
LOC: YASAS 14:02 → Y5N DETOX 15:08
PROVIDERS: ADMIT Allergy & Immunology; ATTEND Allergy & Immunology
PROC: HZ2ZZZZ Detoxification Services for Substance Abuse Treatment (ICD-10-PCS; principal; 2019-11-07)
DX: F10.230 Alcohol dependence with withdrawal, uncomplicated (principal); F13.230 Sedative, hypnotic or anxiolytic dependence with withdrawal, uncomplicated; F14.20 Cocaine dependence, uncomplicated; F17.213 Nicotine dependence, cigarettes, with withdrawal; F19.282 Other psychoactive substance dependence with psychoactive substance-induced sleep disorder; F19.24 Other psychoactive substance dependence with psychoactive substance-induced mood disorder; F31.9 Bipolar disorder, unspecified; F43.10 Post-traumatic stress disorder, unspecified; E88.09 Other disorders of plasma-protein metabolism, not elsewhere classified; L30.8 Other specified dermatitis; M54.89 Other dorsalgia; M17.0 Bilateral primary osteoarthritis of knee; N40.0 Benign prostatic hyperplasia without lower urinary tract symptoms; Z98.890 Other specified postprocedural states
CPT/HCPCS: 36415; 80053; 85027; 86780; U0003

== ENCOUNTER 2019-12-23 09:58 | Inpatient (IN) | payer OTHER ==
--- NOTE | 2019-12-23 10:43 | BHS.RME ---
Substance Use & Tx History - Substance Use History Alcohol Substance amount: 3 packs beeers Frequency of use: Daily Substance route: Oral Date of Last Use: 12/22/19 Heroin Substance amount: 1 gram Frequency of use: Daily Substance route: Inhalation (ex: sniffing or snorting) Date of Last Use: 12/20/19 Nicotine Substance amount: 1 pack Frequency of use: Daily Substance route: Smoking Date of Last Use: 12/23/19 Physical/Psych/Mental Status - Behavior General Behavior: Increased activity (restlessness, agitation) Eye Contact: Normal - Cooperativeness Cooperativeness: Cooperative - Thinking Thought Processes: Tight, Logical, Goal Directed - Physical Health Problems Is patient presently having any pain?: No Does patient presently have any injuries (include location): No Does patient currently have a fever: No Is patient : No CIWA Nausea/Vomitin Muscle Tremors: 4-Moderate,w/Arms Extend Anxiety: 3 Agitation: 3 Paroxysmal Sweats: 2 Orientation: 1-Uncertain about Date Tacttile Disturbances: 0-None Auditory Disturbances: 0-None Visual Disturbances: 0-None Headache: 2-Mild CIWA-Ar Total Score: 18
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
[2019-12-23] MEDS ORDERED: MENTHOL/PHENOL 1 EACH UD MM PRN (11:54)
[2019-12-23] MEDS ORDERED: MAGNESIUM CITRATE 300 ML BOTTLE PO PRN (11:54)
[2019-12-23] MEDS ORDERED: MAG HYDROX/AL HYDROX/SIMETH 30 ML UNIT-DOSE CUP PO PRN (11:54)
[2019-12-23] MEDS ORDERED: ACETAMINOPHEN 325 MG TABLET (FP) PO PRN ×2 (11:54)
[2019-12-23] MEDS ORDERED: BISMUTH SUBSALICYLATE 524 MG/30 ML UD PO PRN (11:54)
[2019-12-23] MEDS ORDERED: ONDANSETRON *ODT* 4 MG TABLET SL PRN (11:54)
[2019-12-23] MEDS ORDERED: IBUPROFEN 400 MG TABLET (FP) PO PRN (11:54)
[2019-12-23] MEDS ORDERED: METHOCARBAMOL 500 MG TABLET PO PRN (11:54)
[2019-12-23] MEDS ORDERED: chlordiazePOXIDE HCL 25 MG CAPSULE PO PRN (11:54)
[2019-12-23] MEDS ORDERED: MAGNESIUM HYDROX 2400MG/30ML ORAL SUSPENSION 30 ML CUP PO PRN (11:54)
[2019-12-23 11:56] VITALS: BMI 23.3
[2019-12-23] MEDS: hydrOXYzine PAMOATE 25 MG CAPSULE (FP) PO SCH ×3 (13:14→22:31)
[2019-12-23 17:44] LABS: HEMATOCRIT 38.6 % (35.4-49); HEMOGLOBIN 12.9 GM/dL (11.7-16.9); MCH 32.2 pg (25.7-33.7); MCHC 33.3 g/dl (32.0-35.9); MEAN CELL VOLUME 96.6 fl (80-96); MEAN PLT VOLUME 8.4 fl (7.5-11.1); PLATELET COUNT 253 K/MM3 (134-434); RBC 3.99 M/mm3 (4.00-5.60); RDW 13.7 % (11.9-15.9); WHITE BLOOD COUNT 4.4 K/mm3 (4.0-10.0)
[2019-12-23] MEDS: chlordiazePOXIDE HCL 25 MG CAPSULE PO SCH ×2 (17:50→22:31)
[2019-12-23 17:52] LABS: ALBUMIN 3.6 g/dl (3.4-5.0); BILIRUBIN,TOTAL 0.3 mg/dL (0.2-1); BLOOD UREA NITROGEN 9.4 mg/dL (7-18); CREATININE 1.1 mg/dL (0.55-1.3); POTASSIUM 4.1 mmol/L (3.5-5.1); TOT PROT 7.4 g/dl (6.4-8.2)
[2019-12-23] MEDS: TAMSULOSIN HCL 0.4 MG CAP PO SCH (22:30)
[2019-12-23] MEDS: THIAMINE HCL 100 MG TABLET (FP) PO SCH (22:31)
[2019-12-23] MEDS: MELATONIN 5 MG TABLETS PO SCH (22:31)
[2019-12-24] MEDS: chlordiazePOXIDE HCL 25 MG CAPSULE PO SCH ×4 (05:44→22:18)
[2019-12-24] MEDS: hydrOXYzine PAMOATE 25 MG CAPSULE (FP) PO SCH ×5 (05:45→22:19)
--- NOTE | 2019-12-24 15:11 | CONSULT ---
[facility] Psychiatric Consult - Data Date of interview: 12/24/19 Admission source: [facility] Identifying data: Barrel Raiser Helper approached patient for psychiatric consultation. Patient stated to headline writer, "Not today. I'm too tired. Maybe tomorrow." Psychiatric consultation refused. Please order another psychiatric consultation if requested by patient.
--- NOTE | 2019-12-24 15:17 | PN ---
S CIWA - CIWA Score Nausea/Vomitin Muscle Tremors: 2 Anxiety: 2 Agitation: 2 Paroxysmal Sweats: No Perspiration Orientation: 0-Oriented Tacttile Disturbances: 1-Very Mild Itch/Numbness Auditory Disturbances: 0-None Visual Disturbances: 0-None Headache: 2-Mild CIWA-Ar Total Score: 11 S Progress Note (SOAP) Subjective: alert,irritable,anxious,interrupted sleep,tremor,aching pain,nausea Objective: 12/24/19 15:15 Vital Signs Temperature 97.1 F L 12/24/19 12:32 Pulse Rate 86 12/24/19 12:32 Respiratory Rate 18 12/24/19 12:32 Blood Pressure 104/72 12/24/19 12:32 O2 Sat by Pulse Oximetry (%) 98 12/24/19 12:32 12/24/19 15:16 Laboratory Last Values WBC 4.4 K/mm3 (4.0-10.0) 12/23/19 12:10 RBC 3.99 M/mm3 (4.00-5.60) L 12/23/19 12:10 Hgb 12.9 GM/dL (11.7-16.9) 12/23/19 12:10 Hct 38.6 % (35.4-49) 12/23/19 12:10 MCV 96.6 fl (80-96) H 12/23/19 12:10 MCH 32.2 pg (25.7-33.7) 12/23/19 12:10 MCHC 33.3 g/dl (32.0-35.9) 12/23/19 12:10 RDW 13.7 % (11.9-15.9) 12/23/19 12:10 Plt Count 253 K/MM3 (134-434) 12/23/19 12:10 MPV 8.4 fl (7.5-11.1) 12/23/19 12:10 Sodium 141 mmol/L (136-145) 12/23/19 12:10 Potassium 4.1 mmol/L (3.5-5.1) 12/23/19 12:10 Chloride 105 mmol/L (98-107) 12/23/19 12:10 Carbon Dioxide 30 mmol/L (21-32) 12/23/19 12:10 Anion Gap 5 MMOL/L (8-16) L 12/23/19 12:10 BUN 9.4 mg/dL (7-18) 12/23/19 12:10 Creatinine 1.1 mg/dL (0.55-1.3) 12/23/19 12:10 Est GFR (CKD-EPI)AfAm 83.53 12/23/19 12:10 Est GFR (CKD-EPI)NonAf 72.07 12/23/19 12:10 Random Glucose 91 mg/dL (74-106) 12/23/19 12:10 Calcium 9.0 mg/dL (8.5-10.1) 12/23/19 12:10 Total Bilirubin 0.3 mg/dL (0.2-1) 12/23/19 12:10 AST 15 U/L (15-37) 12/23/19 12:10 ALT 26 U/L (13-61) 12/23/19 12:10 Alkaline Phosphatase 62 U/L (45-117) 12/23/19 12:10 Total Protein 7.4 g/dl (6.4-8.2) 12/23/19 12:10 Albumin 3.6 g/dl (3.4-5.0) 12/23/19 12:10 Syphilis Serology Non-reactive (NONREACTIVE) 12/23/19 12:10 COVID-19 (VALENTINO) Not detected (Not Detected) 12/23/19 12:10 Assessment: 12/24/19 15:16 withdrawal symptom Plan: continue detox librium regimen
[2019-12-24] MEDS: TAMSULOSIN HCL 0.4 MG CAP PO SCH (22:18)
[2019-12-24] MEDS: THIAMINE HCL 100 MG TABLET (FP) PO SCH (22:19)
[2019-12-24] MEDS: MELATONIN 5 MG TABLETS PO SCH (22:19)
[2019-12-25] MEDS ORDERED: chlordiazePOXIDE HCL 25 MG CAPSULE PO SCH (05:00)
[2019-12-25] MEDS: hydrOXYzine PAMOATE 25 MG CAPSULE (FP) PO SCH ×2 (05:21→10:45)
[2019-12-25 09:48] VITALS: BP 91/63; PULSE 97; TEMP 97.8
--- NOTE | 2019-12-25 10:18 | PN ---
S CIWA - CIWA Score Nausea/Vomitin-Mild Nausea/No Vomiting Muscle Tremors: 2 Anxiety: 0-No Anxiety, at Ease Agitation: 0-Normal Activity Paroxysmal Sweats: 1-Minimal Palms Moist Orientation: 0-Oriented Tacttile Disturbances: 0-None Auditory Disturbances: 1-Very Mild Visual Disturbances: 1-Very Mild Sensitivity Headache: 0-None Present CIWA-Ar Total Score: 6 BHS Progress Note (SOAP) Subjective: Mild withdrawal sx, notes hx of PTSD, has tried multiple meds, interested in restarting Abilify Objective: 12/25/19 10:15 PE Gnl: WDWN, in bed, in no distress MS: nl mentation Motor; moves limbs well Coordination: nl Laboratory Tests 12/23/19 12/23/19 12/23/19 12:10 12:10 12:10 WBC 4.4 RBC 3.99 L Hgb 12.9 Hct 38.6 MCV 96.6 H MCH 32.2 MCHC 33.3 RDW 13.7 Plt Count 253 MPV 8.4 Sodium 141 Potassium 4.1 Chloride 105 Carbon Dioxide 30 Anion Gap 5 L BUN 9.4 Creatinine 1.1 Est GFR (CKD-EPI)AfAm 83.53 Est GFR (CKD-EPI)NonAf 72.07 Random Glucose 91 Calcium 9.0 Total Bilirubin 0.3 AST 15 ALT 26 Alkaline Phosphatase 62 Total Protein 7.4 Albumin 3.6 Syphilis Serology Non-reactive COVID-19 (VALENTINO) 12/23/19 12:10 WBC RBC Hgb Hct MCV MCH MCHC RDW Plt Count MPV Sodium Potassium Chloride Carbon Dioxide Anion Gap BUN Creatinine Est GFR (CKD-EPI)AfAm Est GFR (CKD-EPI)NonAf Random Glucose Calcium Total Bilirubin AST ALT Alkaline Phosphatase Total Protein Albumin Syphilis Serology COVID-19 (VALENTINO) Not detected Active Medications Generic Name Dose Route Start Last Admin Trade Name Freq PRN Reason Stop Dose Admin Acetaminophen 650 mg 12/23/19 11:54 Tylenol - PO Q6H PRN PAIN LEVEL 4 - 6 Acetaminophen 650 mg 12/23/19 11:54 Tylenol - PO Q6H PRN FEVER Al Hydroxide/Mg Hydroxide 30 ml 12/23/19 11:54 Mylanta Oral Suspension - PO Q6H PRN DYSPEPSIA Bismuth Subsalicylate 524 mg 12/23/19 11:54 Pepto-Bismol - PO Q1H PRN DIARRHEA Chlordiazepoxide HCl 25 mg 12/25/19 05:00 12/25/19 05:21 Librium - PO 12/25/19 23:01 25 mg [id number] YEISON Administration Chlordiazepoxide HCl 25 mg 12/23/19 11:54 12/23/19 12:55 Librium - PO 12/25/19 23:59 25 mg Q4H PRN Administration WITHDRAWAL(CONT SUBST) Chlordiazepoxide HCl 10 mg 12/26/19 05:00 Librium - PO 12/26/19 23:01 [id number] YEISON Chlordiazepoxide HCl 10 mg 12/27/19 05:00 Librium - PO 12/27/19 17:01 Q12H YEISON Chlordiazepoxide HCl 10 mg 12/26/19 00:00 Librium - PO 12/27/19 00:00 Q4H PRN WITHDRAWAL(CONT SUBST) Chlordiazepoxide HCl 10 mg 12/28/19 05:00 Librium - PO 12/28/19 05:01 ONCE@0500 ONE Eucalyptus/Menthol/Phenol/Sorbitol 1 each 12/23/19 11:54 Cepastat Lozenge - MM 12/29/19 11:57 Q4H PRN SORE THROAT Hydroxyzine Pamoate 25 mg 12/23/19 14:00 12/25/19 05:21 Vistaril - PO 12/29/19 11:57 25 mg Q4HWA YEISON Administration Ibuprofen 400 mg 12/23/19 11:54 Motrin - PO Q6H PRN PAIN LEVEL 1 - 3 Magnesium Citrate 300 ml 12/23/19 11:54 Citroma - PO Q48H PRN CONSTIPATION Magnesium Hydroxide 30 ml 12/23/19 11:54 Milk Of Magnesia - PO PRN PRN CONSTIPATION Melatonin 5 mg 12/23/19 22:00 12/24/19 22:19 Melatonin PO 5 mg HS YEISON Administration Methocarbamol 500 mg 12/23/19 11:54 12/23/19 12:56 Robaxin - PO 12/29/19 11:57 500 mg Q6H PRN Administration MUSCLE SPASMS Ondansetron HCl 4 mg 12/23/19 11:54 Zofran Odt - SL Q8H PRN Nausea/Vomiting Tamsulosin HCl 0.8 mg 12/23/19 22:00 12/24/19 22:18 Flomax - PO 0.8 mg HS YEISON Administration Thiamine HCl 100 mg 12/23/19 22:00 12/24/19 22:19 Vitamin B1 - PO 100 mg HS YEISON Administration Vital Signs Temperature 97.8 F 12/25/19 08:58 Pulse Rate 97 H 12/25/19 08:58 Respiratory Rate 18 12/25/19 08:58 Blood Pressure 91/63 12/25/19 08:58 O2 Sat by Pulse Oximetry (%) 97 12/25/19 05:19 Assessment: 12/25/19 10:11 Mr. Espinoza is a 59 yo man who presented to [facility] stating "I need to make better decisions" about his substance use disorder including alcohol and heroin. He requests admission to detox. He was last her in October and left AMA PMH: BPH, eczema, O'a, bilateral knee pian, back pian PSH: left inguinal hernia 2016 Psych: PtSD, bipolar SOC: lives in [place] Legal:none IMP 1. Alcohol use disorder, withdrawal/uncomplicated 2. Opioid use disorder, recently started, no significant opioid withdrawal sx, no methadone started 3. Nicotine dependence 4. Cocaine use disorder 5. Cannabis use 6. PTSD, pt refused Psychiatry visit yesterday, now asking to see them, asking about Abilify 12/25/19 10:39 12/25/19 10:42 12/25/19 10:45 Plan: 1. Librium detox, projected completion on 12/27 2. Will reconsult Psychiatry, pt willing to talk today, considering retrying Abilify
--- NOTE | 2019-12-25 11:15 | DS ---
[facility] Detox Discharge Summary Admission Date: 12/23/19 Discharge Date: 12/25/19 - History Present History: Alcohol Dependence Pertinent Past History: 12/25/19 10:11 Mr. Espinoza is a 59 yo man who presented to [facility] on 12/23/19 stating "I need to make better decisions" about his substance use disorder including alcohol and heroin. He now requests to leave care stating " I just like to leave this place now, I'm not one for long conversation". Attempts to redirect patient not effective. Seen by counselor Dee Livingston, pt still wants to leave states "I won't be back". He was last her in October and left AMA. PMH: BPH, eczema, O'a, bilateral knee pian, back pian PSH: left inguinal hernia 2017 Psych: PtSD, bipolar SOC: lives in [place] Legal:none PE Gnl: WDWN in no distress MS: awake alert Gait: steady IMP 1. Alcohol use disorder, withdrawal/uncomplicated 2. Opioid use disorder, recently started, no significant opioid withdrawal sx, no methadone started 3. Nicotine dependence 4. Cocaine use disorder 5. Cannabis use 6. PTSD, pt refused Psychiatry visit yesterday Plan: 1. Discharge AMA - Physical Exam Results Vital Signs: Vital Signs Temperature 97.8 F 12/25/19 08:58 Pulse Rate 97 H 12/25/19 08:58 Respiratory Rate 18 12/25/19 08:58 Blood Pressure 91/63 12/25/19 08:58 O2 Sat by Pulse Oximetry (%) 97 12/25/19 05:19 - Medication Discharge Medications: Ambulatory Orders Tamsulosin HCl [Flomax -] 0.8 mg PO HS cap.er.24h 10/19/19 - Diagnosis (1) Alcohol dependence with uncomplicated withdrawal Current Visit: Yes Status: Acute (2) History of bipolar disorder Current Visit: Yes Status: Chronic (3) BPH (benign prostatic hyperplasia) Current Visit: No Status: Chronic Qualifiers: Lower urinary tract symptom presence: symptoms absent Qualified Code(s): N40.0 - Benign prostatic hyperplasia without lower urinary tract symptoms (4) Opioid use disorder, mild, abuse Current Visit: Yes Status: Acute (5) PTSD (post-traumatic stress disorder) Current Visit: Yes Status: Chronic (6) Cannabis use disorder, mild, abuse Current Visit: Yes Status: Acute (7) Cocaine dependence Current Visit: Yes Status: Acute Qualifiers: Substance use status: uncomplicated Qualified Code(s): F14.20 - Cocaine dependence, uncomplicated - AMA Did Patient Leave Against Medical Advice: Yes
[2019-12-26] MEDS ORDERED: chlordiazePOXIDE HCL 10 MG CAPSULE PO PRN
[2019-12-26] MEDS ORDERED: chlordiazePOXIDE HCL 10 MG CAPSULE PO SCH (05:00)
[2019-12-27] MEDS ORDERED: chlordiazePOXIDE HCL 10 MG CAPSULE PO SCH (05:00)
[2019-12-28] MEDS ORDERED: chlordiazePOXIDE HCL 10 MG CAPSULE PO ONE (05:00)
== END 2019-12-25 11:21 | disposition left against medical advice (07) | DRG 770 ==
LOC: YASAS 09:58 → Y3N 12:01
PROVIDERS: ADMIT Allergy & Immunology; ATTEND Allergy & Immunology
PROC: HZ2ZZZZ Detoxification Services for Substance Abuse Treatment (ICD-10-PCS; principal; 2019-12-23)
DX: F10.230 Alcohol dependence with withdrawal, uncomplicated (principal); F11.20 Opioid dependence, uncomplicated; F14.20 Cocaine dependence, uncomplicated; F12.10 Cannabis abuse, uncomplicated; F13.10 Sedative, hypnotic or anxiolytic abuse, uncomplicated; F17.210 Nicotine dependence, cigarettes, uncomplicated; F31.9 Bipolar disorder, unspecified; F43.10 Post-traumatic stress disorder, unspecified; G47.00 Insomnia, unspecified; L30.9 Dermatitis, unspecified; M19.90 Unspecified osteoarthritis, unspecified site; M17.0 Bilateral primary osteoarthritis of knee; M54.89 Other dorsalgia; N40.0 Benign prostatic hyperplasia without lower urinary tract symptoms
CPT/HCPCS: 36415; 80053; 85027; 86780; U0003

== ENCOUNTER 2021-05-27 10:36 | Inpatient (IN) | payer OTHER ==
[2021-05-27] MEDS ORDERED: MENTHOL/PHENOL 1 EACH UD MM PRN (11:56)
[2021-05-27] MEDS ORDERED: ONDANSETRON *ODT* 4 MG TABLET SL PRN (11:56)
[2021-05-27] MEDS ORDERED: chlordiazePOXIDE HCL 25 MG CAPSULE PO PRN (11:56)
[2021-05-27] MEDS ORDERED: MAG HYDROX/AL HYDROX/SIMETH 30 ML UNIT-DOSE CUP PO PRN (11:56)
[2021-05-27] MEDS ORDERED: BISMUTH SUBSALICYLATE 524 MG/30 ML PO PRN (11:56)
[2021-05-27] MEDS ORDERED: MAGNESIUM HYDROX 2400MG/30ML ORAL SUSPENSION 30 ML CUP PO PRN (11:56)
[2021-05-27] MEDS ORDERED: IBUPROFEN 400 MG TABLET (FP) PO PRN (11:56)
[2021-05-27] MEDS ORDERED: ACETAMINOPHEN 325 MG TABLET (FP) PO PRN ×2 (11:56)
[2021-05-27] MEDS ORDERED: MAGNESIUM CITRATE 300 ML BOTTLE PO PRN (11:56)
[2021-05-27] MEDS ORDERED: LOPERAMIDE HCL 2 MG CAPSULE PO PRN (11:56)
[2021-05-27 12:17] VITALS: BMI 20.5
[2021-05-27] MEDS: METHOCARBAMOL 500 MG TABLET PO PRN (13:30)
[2021-05-27] MEDS: hydrOXYzine PAMOATE 25 MG CAPSULE (FP) PO SCH ×3 (13:30→22:15)
[2021-05-27] MEDS: chlordiazePOXIDE HCL 25 MG CAPSULE PO SCH ×2 (17:36→22:16)
[2021-05-27] MEDS: MELATONIN 5 MG TABLETS PO SCH (22:15)
[2021-05-27] MEDS: TAMSULOSIN HCL 0.4 MG CAP PO SCH (22:15)
[2021-05-27] MEDS: THIAMINE HCL 100 MG TABLET (FP) PO SCH (22:16)
[2021-05-27] MEDS: TOLNAFTATE 1% CREAM 15 GM TUBE TP SCH (22:16)
[2021-05-28] MEDS: chlordiazePOXIDE HCL 25 MG CAPSULE PO SCH ×2 (07:05→11:55)
[2021-05-28] MEDS: hydrOXYzine PAMOATE 25 MG CAPSULE (FP) PO SCH ×5 (07:05→23:04)
[2021-05-28 11:23] LABS: HEMATOCRIT 37.9 % (35.4-49); HEMOGLOBIN 12.3 GM/dL (11.7-16.9); MCH 30.8 pg (25.7-33.7); MCHC 32.3 g/dl (32.0-35.9); MEAN CELL VOLUME 95.3 fl (80-96); MEAN PLT VOLUME 7.8 fl (7.5-11.1); PLATELET COUNT 267 10^3/uL (134-434); RBC 3.98 M/mm3 (4.00-5.60); WHITE BLOOD COUNT 3.8 K/mm3 (4.0-10.0)
[2021-05-28 11:25] LABS: ALBUMIN 3.2 g/dl (3.4-5.0); BLOOD UREA NITROGEN 12.2 mg/dL (7-18); CALCIUM 8.5 mg/dL (8.5-10.1)
[2021-05-28 11:28] LABS: CREATININE 0.9 mg/dL (0.55-1.3)
[2021-05-28 11:29] LABS: BILIRUBIN,TOTAL 0.8 mg/dL (0.2-1)
[2021-05-28 11:30] LABS: TOT PROT 6.4 g/dl (6.4-8.2)
[2021-05-28] MEDS: TOLNAFTATE 1% CREAM 15 GM TUBE TP SCH ×2 (12:02→23:04)
[2021-05-28] MEDS: FINASTERIDE 5 MG TABLET (FP) PO SCH (12:02)
[2021-05-28] MEDS: PRENATAL VITAMINS W/ FOLIC ACID TABLET (FP) PO SCH (12:02)
[2021-05-28 12:19] LABS: HIV INTERPRETATION NEGATIVE (NEGATIVE)
[2021-05-28 14:07] LABS: SARS-CoV-2 NAA Not Detected (Not Detected)
[2021-05-28] MEDS: chlordiazePOXIDE HCL 10 MG CAPSULE PO SCH ×2 (18:01→23:04)
[2021-05-28] MEDS: THIAMINE HCL 100 MG TABLET (FP) PO SCH (23:04)
[2021-05-28] MEDS: TAMSULOSIN HCL 0.4 MG CAP PO SCH (23:04)
[2021-05-28] MEDS: MELATONIN 5 MG TABLETS PO SCH (23:04)
[2021-05-29] MEDS: chlordiazePOXIDE HCL 25 MG CAPSULE PO SCH ×4 (05:15→22:21)
[2021-05-29] MEDS: hydrOXYzine PAMOATE 25 MG CAPSULE (FP) PO SCH ×5 (05:15→22:20)
[2021-05-29] MEDS: METHOCARBAMOL 500 MG TABLET PO PRN (10:37)
[2021-05-29] MEDS: PRENATAL VITAMINS W/ FOLIC ACID TABLET (FP) PO SCH (10:37)
[2021-05-29] MEDS: TOLNAFTATE 1% CREAM 15 GM TUBE TP SCH ×2 (10:38→22:21)
[2021-05-29] MEDS: FINASTERIDE 5 MG TABLET (FP) PO SCH (10:38)
[2021-05-29] MEDS: TAMSULOSIN HCL 0.4 MG CAP PO SCH (22:20)
[2021-05-29] MEDS: MELATONIN 5 MG TABLETS PO SCH (22:21)
[2021-05-29] MEDS: THIAMINE HCL 100 MG TABLET (FP) PO SCH (22:21)
[2021-05-30] MEDS ORDERED: chlordiazePOXIDE HCL 10 MG CAPSULE PO PRN
[2021-05-30] MEDS: hydrOXYzine PAMOATE 25 MG CAPSULE (FP) PO SCH ×3 (05:25→16:04)
[2021-05-30] MEDS: chlordiazePOXIDE HCL 10 MG CAPSULE PO SCH ×4 (05:25→22:24)
[2021-05-30] MEDS: FINASTERIDE 5 MG TABLET (FP) PO SCH (11:31)
[2021-05-30] MEDS: PRENATAL VITAMINS W/ FOLIC ACID TABLET (FP) PO SCH (11:31)
[2021-05-30] MEDS: TOLNAFTATE 1% CREAM 15 GM TUBE TP SCH ×2 (11:45→22:25)
[2021-05-30] MEDS: TAMSULOSIN HCL 0.4 MG CAP PO SCH (11:46)
[2021-05-30] MEDS: hydrOXYzine PAMOATE 50 MG CAPSULE (FP) PO PRN (18:43)
[2021-05-30] MEDS: MELATONIN 5 MG TABLETS PO SCH (22:24)
[2021-05-30] MEDS: THIAMINE HCL 100 MG TABLET (FP) PO SCH (22:26)
[2021-05-31] MEDS: hydrOXYzine PAMOATE 50 MG CAPSULE (FP) PO PRN ×2 (06:43→18:22)
[2021-05-31] MEDS: chlordiazePOXIDE HCL 10 MG CAPSULE PO SCH ×2 (06:45→17:52)
[2021-05-31] MEDS: FINASTERIDE 5 MG TABLET (FP) PO SCH (11:02)
[2021-05-31] MEDS: LORATADINE 10 MG TABLET PO SCH (11:03)
[2021-05-31] MEDS: PRENATAL VITAMINS W/ FOLIC ACID TABLET (FP) PO SCH (11:03)
[2021-05-31] MEDS: TOLNAFTATE 1% CREAM 15 GM TUBE TP SCH ×2 (11:03→23:00)
[2021-05-31] MEDS: TAMSULOSIN HCL 0.4 MG CAP PO SCH (11:03)
[2021-05-31 13:08] LABS: SARS-CoV-2 NAA Not Detected (Not Detected)
[2021-05-31] MEDS: THIAMINE HCL 100 MG TABLET (FP) PO SCH (23:00)
[2021-05-31] MEDS: MELATONIN 5 MG TABLETS PO SCH (23:00)
[2021-06-01] MEDS ORDERED: chlordiazePOXIDE HCL 10 MG CAPSULE PO ONE (05:00)
[2021-06-01] MEDS: hydrOXYzine PAMOATE 50 MG CAPSULE (FP) PO PRN (06:31)
[2021-06-01 07:06] VITALS: BP 122/68; PULSE 77; TEMP 97.8
[2021-06-01] MEDS: TOLNAFTATE 1% CREAM 15 GM TUBE TP SCH (10:42)
[2021-06-01] MEDS: LORATADINE 10 MG TABLET PO SCH (10:42)
[2021-06-01] MEDS: TAMSULOSIN HCL 0.4 MG CAP PO SCH (10:42)
[2021-06-01] MEDS: PRENATAL VITAMINS W/ FOLIC ACID TABLET (FP) PO SCH (10:42)
[2021-06-01] MEDS: FINASTERIDE 5 MG TABLET (FP) PO SCH (10:42)
== END 2021-06-01 09:08 | disposition home or self-care (01) | DRG 774 ==
LOC: YASAS 10:36 → Y6N 12:04
PROVIDERS: ADMIT Allergy & Immunology; ATTEND Allergy & Immunology
PROC: HZ2ZZZZ Detoxification Services for Substance Abuse Treatment (ICD-10-PCS; principal; 2021-05-27)
DX: F10.230 Alcohol dependence with withdrawal, uncomplicated (principal); F14.20 Cocaine dependence, uncomplicated; F12.20 Cannabis dependence, uncomplicated; F17.210 Nicotine dependence, cigarettes, uncomplicated; F19.282 Other psychoactive substance dependence with psychoactive substance-induced sleep disorder; F19.24 Other psychoactive substance dependence with psychoactive substance-induced mood disorder; F31.9 Bipolar disorder, unspecified; F43.10 Post-traumatic stress disorder, unspecified; G47.00 Insomnia, unspecified; N40.0 Benign prostatic hyperplasia without lower urinary tract symptoms; M17.0 Bilateral primary osteoarthritis of knee; B35.3 Tinea pedis; R63.4 Abnormal weight loss; Z68.20 Body mass index [BMI] 20.0-20.9, adult
CPT/HCPCS: 36415; 80053; 85027; 86780; 87389; C9803; Q0162; U0003; U0005

== ENCOUNTER 2021-07-04 08:36 | Inpatient (IN) | payer OTHER ==
[2021-07-04] MEDS ORDERED: MENTHOL/PHENOL 1 EACH UD MM PRN (10:02)
[2021-07-04] MEDS ORDERED: MAGNESIUM HYDROX 2400MG/30ML ORAL SUSPENSION 30 ML CUP PO PRN (10:02)
[2021-07-04] MEDS ORDERED: IBUPROFEN 400 MG TABLET (FP) PO PRN (10:02)
[2021-07-04] MEDS ORDERED: LOPERAMIDE HCL 2 MG CAPSULE PO PRN (10:02)
[2021-07-04] MEDS ORDERED: MAGNESIUM CITRATE 300 ML BOTTLE PO PRN (10:02)
[2021-07-04] MEDS ORDERED: ACETAMINOPHEN 325 MG TABLET (FP) PO PRN ×2 (10:02)
[2021-07-04] MEDS ORDERED: MAG HYDROX/AL HYDROX/SIMETH 30 ML UNIT-DOSE CUP PO PRN (10:02)
[2021-07-04] MEDS ORDERED: METHOCARBAMOL 500 MG TABLET PO PRN (10:02)
[2021-07-04] MEDS ORDERED: ONDANSETRON *ODT* 4 MG TABLET SL PRN (10:02)
[2021-07-04] MEDS ORDERED: BISMUTH SUBSALICYLATE 262 MG/15 ML BTL PO PRN (10:02)
[2021-07-04] MEDS ORDERED: chlordiazePOXIDE HCL 25 MG CAPSULE PO PRN (10:02)
[2021-07-04] MEDS ORDERED: NICOTINE POLACRILEX 4 MG GUM BUC PRN (10:02)
[2021-07-04 10:24] VITALS: BMI 20.9
[2021-07-04] MEDS ORDERED: GABAPENTIN 300 MG CAPSULE PO SCH (11:30)
[2021-07-04] MEDS: chlordiazePOXIDE HCL 25 MG CAPSULE PO SCH ×3 (12:02→22:28)
[2021-07-04] MEDS: hydrOXYzine PAMOATE 25 MG CAPSULE (FP) PO SCH ×3 (15:10→22:27)
[2021-07-04 17:41] LABS: CALCIUM 9.6 mg/dL (8.5-10.1)
[2021-07-04 17:42] LABS: ALBUMIN 4.2 g/dl (3.4-5.0); BLOOD UREA NITROGEN 17.9 mg/dL (7-18)
[2021-07-04 17:45] LABS: CREATININE 1.1 mg/dL (0.55-1.3)
[2021-07-04 17:46] LABS: BILIRUBIN,TOTAL 0.6 mg/dL (0.2-1)
[2021-07-04 17:59] LABS: HEMATOCRIT 40.1 % (35.4-49); MCH 30.9 pg (25.7-33.7); MCHC 32.4 g/dl (32.0-35.9); MEAN CELL VOLUME 95.5 fl (80-96); RDW 13.1 % (11.9-15.9); WHITE BLOOD COUNT 6.9 K/mm3 (4.0-10.0)
[2021-07-04 18:00] LABS: MEAN PLT VOLUME 8.2 fl (7.5-11.1); PLATELET COUNT 275 10^3/uL (134-434)
[2021-07-04] MEDS: TAMSULOSIN HCL 0.4 MG CAP PO SCH (22:27)
[2021-07-04] MEDS: GABAPENTIN 300 MG CAPSULE PO SCH (22:27)
[2021-07-04] MEDS: THIAMINE HCL 100 MG TABLET (FP) PO SCH (22:27)
[2021-07-04] MEDS: MELATONIN 5 MG TABLETS PO SCH (22:27)
[2021-07-04] MEDS: MIRTAZAPINE 15 MG TABLET (FP) PO SCH (22:29)
[2021-07-05] MEDS: hydrOXYzine PAMOATE 25 MG CAPSULE (FP) PO SCH ×5 (05:31→23:30)
[2021-07-05] MEDS: chlordiazePOXIDE HCL 25 MG CAPSULE PO SCH ×4 (05:32→23:31)
[2021-07-05] MEDS: GABAPENTIN 300 MG CAPSULE PO SCH ×3 (05:32→23:30)
[2021-07-05] MEDS ORDERED: FINASTERIDE 5 MG TABLET (FP) PO SCH (10:00)
[2021-07-05] MEDS ORDERED: PRENATAL VITAMINS W/ FOLIC ACID TABLET (FP) PO SCH (10:00)
[2021-07-05 21:49] VITALS: BP 120/87; PULSE 99; TEMP 97.7
[2021-07-05] MEDS: TAMSULOSIN HCL 0.4 MG CAP PO SCH (23:29)
[2021-07-05] MEDS: MIRTAZAPINE 15 MG TABLET (FP) PO SCH (23:30)
[2021-07-05] MEDS: MELATONIN 5 MG TABLETS PO SCH (23:30)
[2021-07-05] MEDS: THIAMINE HCL 100 MG TABLET (FP) PO SCH (23:31)
[2021-07-06] MEDS ORDERED: chlordiazePOXIDE HCL 25 MG CAPSULE PO SCH (05:00)
[2021-07-06 07:07] LABS: SARS-CoV-2 NAA Not Detected (Not Detected)
[2021-07-07] MEDS ORDERED: chlordiazePOXIDE HCL 10 MG CAPSULE PO PRN
[2021-07-07] MEDS ORDERED: chlordiazePOXIDE HCL 10 MG CAPSULE PO SCH (05:00)
[2021-07-08] MEDS ORDERED: chlordiazePOXIDE HCL 10 MG CAPSULE PO SCH (05:00)
[2021-07-09] MEDS ORDERED: chlordiazePOXIDE HCL 10 MG CAPSULE PO ONE (05:00)
== END 2021-07-06 03:47 | disposition left against medical advice (07) | DRG 770 ==
LOC: YASAS 08:36 → Y3N 10:38
PROVIDERS: ADMIT Allergy & Immunology; ATTEND Allergy & Immunology
PROC: HZ2ZZZZ Detoxification Services for Substance Abuse Treatment (ICD-10-PCS; principal; 2021-07-04)
DX: F10.230 Alcohol dependence with withdrawal, uncomplicated (principal); F17.210 Nicotine dependence, cigarettes, uncomplicated; F31.9 Bipolar disorder, unspecified; F19.24 Other psychoactive substance dependence with psychoactive substance-induced mood disorder; F43.10 Post-traumatic stress disorder, unspecified; G47.00 Insomnia, unspecified; M17.0 Bilateral primary osteoarthritis of knee; N40.0 Benign prostatic hyperplasia without lower urinary tract symptoms; R63.4 Abnormal weight loss; Z68.20 Body mass index [BMI] 20.0-20.9, adult
CPT/HCPCS: 36415; 80053; 85027; 86780; 87811; 93005; 93010; C9803-CS; U0003; U0005

== ENCOUNTER 2022-03-05 12:26 | Inpatient (IN) | payer OTHER ==
[2022-03-05 13:21] VITALS: BMI 20.9
[2022-03-05] MEDS ORDERED: hydrOXYzine PAMOATE 25 MG CAPSULE (FP) PO PRN (14:57)
[2022-03-05] MEDS ORDERED: ONDANSETRON *ODT* 4 MG TABLET SL PRN (14:57)
[2022-03-05] MEDS ORDERED: LORazepam 1 MG TABLET PO PRN (14:57)
[2022-03-05] MEDS ORDERED: POLYETHYLENE GLYCOL (HEALTHYLAX) 3350 17 GM PACKET PO PRN (14:57)
[2022-03-05] MEDS ORDERED: IBUPROFEN 400 MG TABLET (FP) PO PRN (14:57)
[2022-03-05] MEDS ORDERED: MAG HYDROX/AL HYDROX/SIMETH 30 ML UNIT-DOSE CUP PO PRN (14:57)
[2022-03-05] MEDS ORDERED: MAGNESIUM HYDROX 2400MG/30ML ORAL SUSPENSION 30 ML CUP PO PRN (14:57)
[2022-03-05] MEDS ORDERED: ACETAMINOPHEN 325 MG TABLET (FP) PO PRN ×2 (14:57)
[2022-03-05] MEDS ORDERED: BENZOCAINE/MENTHOL (CHLORASEPTIC ) LOZENGE MM PRN (14:57)
[2022-03-05] MEDS ORDERED: NICOTINE POLACRILEX 2 MG GUM BUC PRN (14:57)
[2022-03-05] MEDS ORDERED: DICYCLOMINE HCL 10 MG CAPSULE PO PRN (14:57)
[2022-03-05] MEDS ORDERED: BISMUTH SUBSALICYLATE 262 MG/15 ML BTL PO PRN (14:57)
[2022-03-05] MEDS ORDERED: NICOTINE 10 MG CARTRIDGE (INHALER) IH PRN (14:57)
[2022-03-05] MEDS ORDERED: METHOCARBAMOL 500 MG TABLET PO PRN (14:57)
[2022-03-05] MEDS ORDERED: LOPERAMIDE HCL 2 MG CAPSULE PO PRN (14:57)
[2022-03-05] MEDS ORDERED: IBUPROFEN 600 MG TABLET (FP) PO PRN (14:57)
[2022-03-05] MEDS ORDERED: NICOTINE 7 MG/24 HOURS TOPICAL PATCH TD PRN (14:57)
[2022-03-05] MEDS: LORazepam 2 MG TABLET PO SCH ×2 (17:42→22:18)
[2022-03-05] MEDS: PRENATAL VITAMINS W/ FOLIC ACID TABLET (FP) PO SCH (17:45)
[2022-03-05] MEDS: TAMSULOSIN HCL 0.4 MG CAP PO SCH (22:18)
[2022-03-05] MEDS: THIAMINE HCL 100 MG TABLET (FP) PO SCH (22:18)
[2022-03-05] MEDS: MELATONIN 5 MG TABLETS PO SCH (22:18)
[2022-03-06] MEDS: LORazepam 2 MG TABLET PO SCH ×5 (05:29→22:31)
[2022-03-06] MEDS: PRENATAL VITAMINS W/ FOLIC ACID TABLET (FP) PO SCH (10:56)
[2022-03-06] MEDS: TRIAMCINOLONE ACET 0.1% OINT 15 GM TUBE TP SCH (10:56)
[2022-03-06 12:24] LABS: HEMATOCRIT 35.6 % (35.4-49); HEMOGLOBIN 11.6 GM/dL (11.7-16.9); MCH 31.3 pg (25.7-33.7); MCHC 32.6 g/dl (32.0-35.9); MEAN CELL VOLUME 96.1 fl (80-96); PLATELET COUNT 247 10^3/uL (134-434); RDW 12.8 % (11.9-15.9); WHITE BLOOD COUNT 6.3 K/mm3 (4.0-10.0)
[2022-03-06 12:38] LABS: BLOOD UREA NITROGEN 11.3 mg/dL (7-18)
[2022-03-06 12:39] LABS: ALBUMIN 2.9 g/dl (3.4-5.0); CALCIUM 8.1 mg/dL (8.5-10.1)
[2022-03-06 12:42] LABS: CREATININE 0.7 mg/dL (0.55-1.3)
[2022-03-06 12:43] LABS: BILIRUBIN,TOTAL 0.5 mg/dL (0.2-1); TOT PROT 5.9 g/dl (6.4-8.2)
[2022-03-06] MEDS ORDERED: SUVOREXANT 5 MG TABLET PO PRN (22:00)
[2022-03-06] MEDS ORDERED: guaiFENesin 200 MG/10 ML 10 ML UNIT-DOSE CUPS PO PRN (22:05)
[2022-03-06] MEDS ORDERED: P-EPHED 60MG/TRIPROLIDI 2.5MG TABLET PO PRN (22:05)
[2022-03-06] MEDS: TAMSULOSIN HCL 0.4 MG CAP PO SCH (22:31)
[2022-03-06] MEDS: MELATONIN 5 MG TABLETS PO SCH (22:31)
[2022-03-06] MEDS: THIAMINE HCL 100 MG TABLET (FP) PO SCH (22:31)
[2022-03-06] MEDS ORDERED: METOPROLOL TARTRATE 25 MG TABLET (FP) PO ONE (23:11)
[2022-03-07] MEDS: LORazepam 1 MG TABLET PO SCH ×4 (06:03→22:08)
[2022-03-07] MEDS: PRENATAL VITAMINS W/ FOLIC ACID TABLET (FP) PO SCH (10:37)
[2022-03-07] MEDS: TRIAMCINOLONE ACET 0.1% OINT 15 GM TUBE TP SCH (10:38)
[2022-03-07] MEDS: MELATONIN 5 MG TABLETS PO SCH (22:10)
[2022-03-07] MEDS: THIAMINE HCL 100 MG TABLET (FP) PO SCH (22:10)
[2022-03-07] MEDS: TAMSULOSIN HCL 0.4 MG CAP PO SCH (22:10)
[2022-03-08] MEDS ORDERED: LORazepam 0.5 MG TABLET PO PRN
[2022-03-08] MEDS: LORazepam 0.5 MG TABLET PO SCH ×2 (05:26→10:24)
[2022-03-08 06:10] VITALS: BP 113/85; PULSE 85; RESP 18; TEMP 97.1
[2022-03-08] MEDS: PRENATAL VITAMINS W/ FOLIC ACID TABLET (FP) PO SCH (09:53)
[2022-03-08] MEDS: TRIAMCINOLONE ACET 0.1% OINT 15 GM TUBE TP SCH (09:53)
[2022-03-09] MEDS ORDERED: LORazepam 0.5 MG TABLET PO ONE (05:00)
== END 2022-03-08 08:47 | disposition home or self-care (01) | DRG 774 ==
LOC: YASAS 12:26 → Y3N 15:09
PROVIDERS: ADMIT Allergy & Immunology; ATTEND Psychiatry & Neurology Psychiatry
PROC: HZ2ZZZZ Detoxification Services for Substance Abuse Treatment (ICD-10-PCS; principal; 2022-03-05)
DX: F10.230 Alcohol dependence with withdrawal, uncomplicated (principal); F14.20 Cocaine dependence, uncomplicated; F12.20 Cannabis dependence, uncomplicated; F31.9 Bipolar disorder, unspecified; F19.24 Other psychoactive substance dependence with psychoactive substance-induced mood disorder; F43.10 Post-traumatic stress disorder, unspecified; R09.81 Nasal congestion; L30.8 Other specified dermatitis; M17.0 Bilateral primary osteoarthritis of knee; N40.0 Benign prostatic hyperplasia without lower urinary tract symptoms; R00.0 Tachycardia, unspecified; R63.4 Abnormal weight loss; Z68.20 Body mass index [BMI] 20.0-20.9, adult; Z87.891 Personal history of nicotine dependence
CPT/HCPCS: 36415; 80053; 85027; 86780; C9803-CS; U0003; U0005

== ENCOUNTER 2022-04-27 09:34 | Inpatient (IN) | payer OTHER ==
[2022-04-27 09:50] VITALS: RESP 18; BMI 20.2
[2022-04-27] MEDS ORDERED: LOPERAMIDE HCL 2 MG CAPSULE PO PRN (13:43)
[2022-04-27] MEDS ORDERED: hydrOXYzine PAMOATE 25 MG CAPSULE (FP) PO PRN (13:43)
[2022-04-27] MEDS ORDERED: NICOTINE 10 MG CARTRIDGE (INHALER) IH PRN (13:43)
[2022-04-27] MEDS ORDERED: BENZOCAINE/MENTHOL (CHLORASEPTIC ) LOZENGE MM PRN (13:43)
[2022-04-27] MEDS ORDERED: POLYETHYLENE GLYCOL (HEALTHYLAX) 3350 17 GM PACKET PO PRN (13:43)
[2022-04-27] MEDS ORDERED: guaiFENesin 200 MG/10 ML 10 ML UNIT-DOSE CUPS PO PRN (13:43)
[2022-04-27] MEDS ORDERED: MAGNESIUM HYDROX 2400MG/30ML ORAL SUSPENSION 30 ML CUP PO PRN (13:43)
[2022-04-27] MEDS ORDERED: ACETAMINOPHEN 325 MG TABLET (FP) PO PRN (13:43)
[2022-04-27] MEDS ORDERED: P-EPHED 60MG/TRIPROLIDI 2.5MG TABLET PO PRN (13:43)
[2022-04-27] MEDS ORDERED: IBUPROFEN 400 MG TABLET (FP) PO PRN (13:43)
[2022-04-27] MEDS ORDERED: MAG HYDROX/AL HYDROX/SIMETH 30 ML UNIT-DOSE CUP PO PRN (13:43)
[2022-04-27 17:29] LABS: HEMATOCRIT 35.6 % (35.4-49); HEMOGLOBIN 11.8 GM/dL (11.7-16.9); MCH 31.4 pg (25.7-33.7); MCHC 33.1 g/dl (32.0-35.9); MEAN PLT VOLUME 7.7 fl (7.5-11.1); PLATELET COUNT 282 10^3/uL (134-434); RBC 3.75 M/mm3 (4.00-5.60); RDW 12.9 % (11.9-15.9)
[2022-04-27 17:36] LABS: CALCIUM 8.5 mg/dL (8.5-10.1)
[2022-04-27 17:37] LABS: ALBUMIN 3.4 g/dl (3.4-5.0)
[2022-04-27 17:40] LABS: CREATININE 0.9 mg/dL (0.55-1.3)
[2022-04-27 17:41] LABS: TOT PROT 6.6 g/dl (6.4-8.2)
[2022-04-27 17:42] LABS: BILIRUBIN,TOTAL 0.4 mg/dL (0.2-1)
[2022-04-27] MEDS ORDERED: THIAMINE HCL 100 MG TABLET (FP) PO SCH (22:00)
[2022-04-27] MEDS ORDERED: TAMSULOSIN HCL 0.4 MG CAP PO SCH (22:00)
[2022-04-27] MEDS ORDERED: MELATONIN 5 MG TABLETS PO SCH (22:00)
[2022-04-28 06:38] VITALS: BP 129/97; PULSE 99
[2022-04-28 09:12] VITALS: TEMP 98
[2022-04-28] MEDS ORDERED: PRENATAL VITAMINS W/ FOLIC ACID TABLET (FP) PO SCH (10:00)
[2022-04-28] MEDS ORDERED: NICOTINE 7 MG/24 HOURS TOPICAL PATCH TD SCH (10:00)
== END 2022-04-28 09:30 | disposition left against medical advice (07) | DRG 770 ==
LOC: YASAS 09:34 → Y3W 14:51
PROVIDERS: ADMIT Allergy & Immunology; ATTEND Psychiatry & Neurology Pain Medicine
PROC: HZ42ZZZ Group Counseling for Substance Abuse Treatment, Cognitive-Behavioral (ICD-10-PCS; principal; 2022-04-27)
DX: F10.20 Alcohol dependence, uncomplicated (principal); F14.20 Cocaine dependence, uncomplicated; F12.20 Cannabis dependence, uncomplicated; F31.9 Bipolar disorder, unspecified; F43.10 Post-traumatic stress disorder, unspecified; G47.00 Insomnia, unspecified; N40.0 Benign prostatic hyperplasia without lower urinary tract symptoms; L30.8 Other specified dermatitis; R63.4 Abnormal weight loss; Z68.20 Body mass index [BMI] 20.0-20.9, adult; Z87.891 Personal history of nicotine dependence
CPT/HCPCS: 36415; 80053; 85027; 86780; C9803-CS; U0003; U0005